=== PATIENT | female | born 1945 | race Caucasian/White ===

== ENCOUNTER 2024-01-02 11:36 | Inpatient (IN) | payer MEDICARE, SELFPAY ==
[2024-01-02] VITALS (11 sets, daily range): BP systolic 116–164; BP diastolic 44–93; PULSE 85–115; RESP 16–25; TEMP 36–37.1; O2SAT 92–100; BMI 22.8; BMI 21.8
--- NOTE | 2024-01-02 11:55 | CT_ITS ---
EXAM: CT MAXILLOFACIAL SINUSES WITHOUT INTRAVENOUS CONTRAST CLINICAL INDICATION: pain TECHNIQUE: Helically acquired images were obtained of the maxillofacial sinuses without intravenous contrast. This CT exam was performed using one or more of the following dose reduction techniques: automated exposure control, adjustment of the mA and/or kV according to patient size, and/or use of iterative reconstruction technique. RADIATION DOSE: CTDIvol = 29.38 mGy, DLP = 1197.76 mGy-cm COMPARISON: No relevant prior studies available. FINDINGS: MAXILLARY SINUSES: Minimal mucosal thickening in the left pancreas sinus. Normal right maxillary sinus. Narrow bilateral ostiomeatal units but nonobstructive. SPHENOID SINUSES: Clear. FRONTAL SINUSES: Clear. ETHMOID AIR CELLS: Clear. NASAL CAVITY/SEPTUM: Nasal septum is midline. Nasal turbinates are unremarkable. TEMPORAL BONES: Mild mucosal edema of the bilateral temporal mastoid air cells, left greater than right. Normal bilateral middle ear spaces and the visualized middle ear ossicles. Normal bilateral external auditory canals.. BONES/JOINTS: No fractures. No lytic or blastic lesions. Degenerative narrowing of the left TMJ with prominent anterior degenerative spurring of the left condylar head from chronic left TMJ dysfunction. Normal right TMJ. SOFT TISSUES: Unremarkable. SUPRAHYOID NECK: Normal parotid spaces, parapharyngeal spaces and physician general practice spaces. Normal nasopharynx, oropharynx and hypopharynx. Normal submandibular space is and sublingual spaces. Normal carotid spaces. LYMPH NODES: No lymphadenopathy in the suprahyoid neck. ORBITS: Unremarkable. DENTAL: Unremarkable as visualized. No periodontal osseous erosion. CT/Sinus/Facial Bone IMPRESSION: 1. No CT evidence of acute or chronic sinusitis. 2. Degenerative narrowing of the left TMJ with bone spur in the anterior aspect of the left condylar head due to chronic TMJ dysfunction. Normal right TMJ. 3. No CT evidence of mass or acute abnormality in the suprahyoid neck. Electronically Signed: Ruel Matthews MD at 13:37 EDT ,
--- NOTE | 2024-01-02 11:55 | CT_ITS ---
EXAM: CT HEAD WITHOUT INTRAVENOUS CONTRAST CLINICAL INDICATION: Weakness. TECHNIQUE: Multiple axial images were obtained of the head without intravenous contrast. This CT exam was performed using one or more of the following dose reduction techniques: automated exposure control, adjustment of the mA and/or kV according to patient size, and/or use of iterative reconstruction technique. RADIATION DOSE: CTDIvol = 44.99 mGy, DLP = 829.85 mGy-cm COMPARISON: No relevant prior studies available. FINDINGS: BRAIN AND EXTRA-AXIAL SPACES: Confluent white matter hypodensities in the subcortical white matter of the cerebral hemispheres are chronic white matter ischemic changes. Normal cavum septum pellucidum and cavum vergae. Mild cerebral atrophy, central and cortical, causing disproportionate dilatation of the third and lateral ventricles. Normal cerebral aqueduct and fourth ventricle. No intra- or extra-axial hemorrhage. No intracranial mass or mass effect. Posterior fossa structures are unremarkable. No hydrocephalus. Basal cisterns are patent. BONES/JOINTS: Unremarkable. No discrete lytic or blastic abnormalities. SINUSES: Unremarkable as visualized. Clear. MASTOID AIR CELLS: Unremarkable. Clear. ORBITS: Visualized globes, extraocular muscles, optic nerves and retrobulbar fat appear unremarkable. CT/Brain/Head without Contrast IMPRESSION: 1. No CT evidence of intracranial bleeding, acute ischemic infarct, intracranial mass or acute intracranial abnormality. 2. Confluent chronic white matter ischemic changes in both cerebral hemispheres. Electronically Signed: Ruel Matthews MD at 13:10 EDT ,
--- NOTE | 2024-01-02 11:55 | EKG12_ITS ---
Test Reason : WEAKNESS Blood Pressure : / mmHG Vent. Rate : 083 BPM Atrial Rate : 000 BPM P-R Int : 000 ms QRS Dur : 136 ms QT Int : 422 ms P-R-T Axes : 000 -79 017 degrees QTc Int : 495 ms NSR Left axis deviation Right bundle branch block Abnormal ECG Confirmed by SILAS SMYTH, COTY ([id number]), editor producer VANNA THOMAS ([id number]) on 01/04/2024 7:05:13 AM Referred By: Confirmed By:COTY ROSEN MD
--- NOTE | 2024-01-02 11:57 | EDS_ITS ---
HPI History of Present Illness Chief Complaint: Weakness Informant: patient and spouse/S.O. Narrative Narrative: Patient presents secondary to generalized weakness and decreased p.o. intake. She admits that she has not been to a doctor in at least 12 years. She has a bad tooth in the left lower jaw and thinks that led to her current illness. She reports some sinus pressure but really no specific dental pain. For the past couple days she has been laying in bed. She has had decreased p.o. intake. She had some chills but no fever. She has had a mild cough. She developed diarrhea yesterday. PFSH PFS Medical History no medical history no medical history Allergy/AdvReac Type Severity Reaction Status Date / Time No Known Allergies Allergy Verified 01/02/24 11:36 Social History Smoking Status: Never smoker ROS ROS ED Constitutional Constitutional ED: Reports chills; Denies fever(s) Eyes Eyes: Denies change in vision or discharge from eye(s) ENT ENT ED: Reports other Details: Left lower tooth decay ; Denies discharge from eye(s), rhinorrhea or sore throat Cardiovascular Cardiovascular: Denies chest pain or palpitations Respiratory/Chest Respiratory/Chest: Reports cough; Denies dyspnea Gastrointestinal Gastrointestinal: Reports diarrhea; Denies abdominal pain, nausea or vomiting Genitourinary Genitourinary ED: Denies difficulty urinating or dysuria Musculoskeletal Musculoskeletal: Denies back pain or extremity pain Integumentary Denies Abrasions or rash Neurologic Neurologic: Reports weakness; Denies headache(s) Psychiatric Psychiatric: Denies anxiety or depression Allergic/Immunologic Allergic/Immunologic ED: Denies lip swelling or urticaria EXAM Physical Exam Const Vital Signs: 01/02/24 11:37 01/02/24 11:40 01/02/24 12:12 Temperature 96.8 F L 96.8 F L Temperature Source Temporal Temporal Pulse Rate 93 93 Respiratory Rate 18 18 Respiratory Effort Normal Non-Labored Respiratory Pattern Normal Blood Pressure 149/58 H 149/58 H Blood Pressure Mean 88 88 Pulse Ox 100 100 Oxygen Delivery Method Room Air Room Air 01/02/24 13:03 01/02/24 13:26 01/02/24 14:00 Temperature 98.1 F 97.4 F L Temperature Source Axillary Temporal Pulse Rate 85 94 115 H Respiratory Rate 16 25 H 18 Respiratory Effort Respiratory Pattern Normal Blood Pressure 149/90 H 164/72 H Blood Pressure Mean 109 102 Pulse Ox 93 95 Oxygen Delivery Method Room Air Room Air Positive well nourished and well developed General Appearance ED: well developed HEENT Reports moist mucous membranes HEENT Narrative: Cavity noted along the left mandibular second molar. Minimal surrounding gum edema. No trismus. No facial edema or erythema. 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 EKG obtained to evaluate for cardiac arrhythmia/ischemia. IV line established. Labwork obtained to evaluate for leukocytosis, anemia, and electrolyte derangement. Urinalysis obtained to evaluate for infection/hematuria. CT scan of the head and facial bones/sinuses obtained given her complaints of pain. History & Record Review Discussion w/independent historian: Patient and Significant other Lab Data Attestation: I reviewed the patient's lab results. Labs: Laboratory Results - last 24 hr 01/02/24 12:10 WBC 15.5 H RBC 2.73 L Hgb 7.6 L Hct 24.2 L MCV 88.6 MCH 27.8 MCHC 31.4 L RDW Std Deviation 46.1 H RDW Coeff of Magdalene 14.4 Plt Count 256 MPV 9.7 Immature Gran % (Auto) 1.200 H Neut % (Auto) 85.1 H Lymph % (Auto) 6.2 L [place] % (Auto) 6.3 Eos % (Auto) 0.8 Baso % (Auto) 0.4 Absolute Neuts (auto) 13.2 H Absolute Lymphs (auto) 0.96 Nucleated RBC % 0 Sodium 135 L Potassium 5.7 H Chloride 99 Carbon Dioxide 20.0 L Anion Gap 16 H BUN 123 H* Creatinine 11.30 H* Estim Creat Clear Calc 3.75 Est GFR (MDRD) Af Amer 4 L Est GFR (MDRD) Non-Af 4 L BUN/Creatinine Ratio 10.9 Glucose 124 H Calcium 9.4 Total Bilirubin 0.70 Direct Bilirubin 0.41 H AST 20 ALT 17 Alkaline Phosphatase 187 H Total Protein 7.4 Albumin 1.9 L Globulin 5.5 H Radiography Chest X-Ray - ED: 2 View, Read by ED Physician and - (Chronic changes, hyperinflation, haziness bilateral apices.) Diagnostic Testing: Clinical Impression(s) from Imaging Studies Brain CT 01/02/24 11:55 IMPRESSION: 1. No CT evidence of intracranial bleeding, acute ischemic infarct, intracranial mass or acute intracranial abnormality. 2. Confluent chronic white matter ischemic changes in both cerebral hemispheres. Electronically Signed: Ruel Matthews MD at 13:10 EDT , Facial/Sinus 01/02/24 11:[address]: [address] evidence of acute or chronic sinusitis. 2. Degenerative narrowing of the left TMJ with bone spur in the anterior aspect of the left condylar head due to chronic TMJ dysfunction. Normal right TMJ. 3. No CT evidence of mass or acute abnormality in the suprahyoid neck. Electronically Signed: Ruel Matthews MD at 13:37 EDT , Chest X-Ray 01/02/24 12:54 IMPRESSION: 1. No acute cardiopulmonary pathology. 2. COPD. 3. Prominent right apical pleural thickening greater than left apical pleural thickening. HRCT chest will be very helpful for further evaluation. Electronically Signed: Ruel Matthews MD at 14:08 EDT , EKG Initial EKG: Attestation: I personally reviewed and interpreted this EKG as follows: Interpretation: Sinus Rhythm (Sinus 83 with prolonged PA. QTc is 495.) Treatment and Re-Evaluation :: CT scan of the head reveals no acute intracranial findings. Confluent chronic white matter changes noted. CT of the facial bones and sinuses reveals no acute sinusitis. 2 view chest x-ray per my interpretation reveals chronic changes with hyperinflation and haziness at the bilateral apices. Radiology interpretation reviewed and agrees. CBC was a white count of 15.5 with 85% neutrophils. Hemoglobin is low at 7.6 with hematocrit of 24.2. Chemistry studies reveal a sodium of 135, potassium of 5.7, bicarb of 20. Anion gap is 16. BUN is 123 and creatinine is 11.3. Glucose is 124. LFTs significant for an alk phos of 187. Given her hyperkalemia, she was given insulin and glucose along with an albuterol treatment. Following the albuterol treatment she has been tachycardic in the 120s. Nursing staff did note a episode where her heart rate went up into the 180s. They went into the room and had a cough and she came back down to the 120s. Patient is currently receiving IV fluids. Bedside bladder scan will be obtained to evaluate whether she has any urine in her bladder for urinalysis. I will speak with hospitalist regarding admission. Discharge Plan Triage Chief Complaint: Weakness ED Provider: Constance Wiggins Dx/Rx/DC Orders Clinical Impression: Anemia, Leukocytosis, Renal failure, SVT (supraventricular tachycardia), Hyperkalemia Primary Care Provider: Care Physician,No Primary Referrals: NOT,DEFINED [Non-Staff] - Disposition Disposition: Acute Care [facility]
[2024-01-02] MEDS: 0.9% Normal Saline (1000mL) 1,000 ML 1000 ML IV (12:09)
[2024-01-02 12:30] LABS: Absolute Lymphocyte Count 0.96 X10^3/uL (0.83-4.51); Absolute Neutrophil Count 13.2 X10^3/uL (2.0-7.7); Basophil# 0.06 X10^3/uL; Basophil% 0.4 % (0-1); Eosinophil# 0.12 X10^3/uL; Eosinophils% 0.8 % (0-5); Hematocrit 24.2 % (37-47); Hemoglobin 7.6 g/dL (12.0-15.0); Lymphocyte # 0.96 X10^3/ul (0.83-4.51); Lymphocyte % 6.2 % (19-41); Mean Corp Hgb Conc 31.4 g/dL (32-36); Mean Corpuscular Hgb 27.8 pg (27.0-32.0); Mean Corpuscular Volume 88.6 fL (81-99); Mean Platelet Vol. 9.7 fl (6.2-12.0); Monocyte# 0.98 X10^3/uL; Monocyte% 6.3 % (0-10); NRBC Flagged by Analyzer 0 % (0-5); Neutrophil # 13.24 X10^3/uL (2.7-7.7); Neutrophil % 85.1 % (47-70); Platelet Count 256 K/mm3 (150-450); RBC Distribution Width CV 14.4 % (11.6-14.6); RBC Distribution Width SD 46.1 fl (35.1-43.9); Red Blood Count 2.73 M/mm3 (4.2-5.4); White Blood Count 15.5 K/mm3 (4.4-11.0)
[2024-01-02 12:46] LABS: AST(SGOT) 20 U/L (15-37); Alanine Aminotransfer ALT/SGPT 17 U/L (13-56); Albumin, Serum 1.9 g/dL (3.2-5.0); Alkaline Phosphatase 187 U/L (45-117); Anion Gap 16 (5-15); BUN 123 mg/dL (7-18); BUN/Creat Ratio 10.9 RATIO (10-20); Bilirubin, Direct 0.41 mg/dL (0.00-0.30); Calcium,Total 9.4 mg/dL (8.5-10.1); Chloride 99 mmol/L (98-107); EST Glomerular Filtration Rate 4 mL/min (>60); Est Glom Filt Rate - Afr Amer 4 mL/min (>60); Estimated Creatinine Clearance 3.75 ml/min; Globulin 5.5 g/dL (2.2-4.2); Glucose 124 mg/dL (74-106); Potassium 5.7 mmol/L (3.5-5.1); Protein, Total 7.4 g/dL (6.4-8.2); Sodium Level 135 mmol/L (136-145)
--- NOTE | 2024-01-02 12:54 | RAD_ITS ---
EXAM: XR CHEST, 2 VIEWS CLINICAL INDICATION: cough TECHNIQUE: Frontal and lateral views of the chest. COMPARISON: No relevant prior studies available. FINDINGS: LUNGS AND PLEURAL SPACES: Mild pulmonary hyperinflation and flattening of the hemidiaphragms. Asymmetric bilateral apical pleural thickening, right greater than left. No pneumothorax. No effusion. HEART: Mild cardiomegaly. MEDIASTINUM: Central airways and mediastinal contour are unremarkable. BONES/JOINTS: Unremarkable. No acute fracture. SOFT TISSUES: Unremarkable. RAD/Chest PA and Lateral IMPRESSION: 1. No acute cardiopulmonary pathology. 2. COPD. 3. Prominent right apical pleural thickening greater than left apical pleural thickening. HRCT chest will be very helpful for further evaluation. Electronically Signed: Ruel Matthews MD at 14:08 EDT ,
[2024-01-02] MEDS: Albuterol 2.5 MG/3 ML VIAL.NEB. 10 MG INHALATION (13:02)
[2024-01-02] MEDS: Insulin Lispro 10 UNIT in Syringe 0 ML 6 UNIT IV (13:22)
[2024-01-02] MEDS: Dextrose 50%-Water 25 GM/50 ML DISP.SYRIN IV (13:22)
[2024-01-02] MEDS: 0.9% Normal Saline (1000mL) 1,000 ML 150 ML IV (14:21)
--- NOTE | 2024-01-02 15:11 | PCM.HP.STD ---
HPI - General General Date of Admission: 01/02/24 Date of Service: 01/02/24 Chief Complaint: Generalized weakness for 4 weeks, decreased oral intake not on blood for 3 to 4 days HPI Narrative DIAN WEBB, is a 78 F who came to ED for generalized weakness for about 4 weeks with decreased oral intake, not eating enough, out of bed for last 3 to 4 days. Patient also stated she had sinus infection about 2 to 4 weeks ago and is out of it. She is feeling chills last days but has not measured temperature. She also has mild chronic dry cough which has not increased in severity or change in characteristic. She states sometimes she gets chest pain on coughing. She admitted that she had not been to her doctor for at least 12 years last one was in 2011. She had a bad tooth left lower jaw that due to present illness. To ED doctor states that she developed diarrhea but to me she said her bowel movements are normal. Her history is very circumference and seems to changes her answer to different providers. She also found decrease in the urine output and frequency in last 1 month but denies burning micturition. She said she has not had urine output in last 3 days In ED, patient was found to be in GRACE, BUN/creatinine 123/1.3, potassium 5.7. In ED, she had started runs of SVT which lasted for seconds to minutes. Twelve-lead EKG shows sinus rhythm with wide QRS, LAD, RBBB. QTc 495 ms. QRS 136 ms. She was also found very anemic hemoglobin 7.6/hematocrit 24.2. Initially patient was refusing for admission but after talking to ED physician, her and myself she agreed for admission. Past medical history: Unclear. She also denies any medical disease. Has not seen doctor in 12 years. Social history: She smoked a pack per day till 1990 and then quit. Quit 33 years ago. Started around teenage. Denies any significant alcohol use or substance use. Family history: History very circumferential. Cannot tell directly any significant family history relating to present illness. Noncontributory to the present illness [facility] Medical History no medical history Home Medications ascorbic acid (vitamin C) 250 mg tablet 250 mg PO DAILY 01/02/24 [History Last Taken Unknown] cholecalciferol (vitamin D3) 25 mcg (1,000 unit) capsule 25 mcg PO DAILY 01/02/24 [History Last Taken Unknown] cyanocobalamin (vitamin B-12) 1,000 mcg capsule 1,000 mcg PO DAILY 01/02/24 [History Last Taken Unknown] iron,carbonyl-vitamin C-FOS 1 tab PO DAILY 01/02/24 [History Last Taken Unknown] magnesium citrate 100 mg tablet 400 mg PO DAILY 01/02/24 [History Last Taken Unknown] multivitamin (Daily Multi-Vitamin tablet) 1 tab PO DAILY 01/02/24 [History Last Taken Unknown] Allergy/AdvReac Type Severity Reaction Status Date / Time No Known Allergies Allergy Verified 01/02/24 11:36 Social History Smoking Status: Never smoker ROS ROS Narrative Constitutional: Reports fatigue and weakness for about 4 weeks. No fever. Chills HEENT: Chronic sinus but gotten better in the last 2 weeks. Denies nasal discharge, rhinorrhea sinus pressure or headache. Reports systems reviewed and no addt'l complaints, except as documented Respiratory/Chest: No acute shortness of breath or respiratory distress or wheezing. Rest as described in HPI CVS: No chest pain pressure or tightness Gastrointestinal: Denies coffee ground emesis, hematemesis or vomiting Genitourinary: Denies burning urination or new urinary tract symptoms Musculoskeletal: Denies acute joint pain or limited range of motion. No acute injury Neurologic: Denies seizure-like symptoms. skin: No ulcer. No rash Endocrinology: Reports systems reviewed and no addt'l complaints, except as documented Hematologic/Lymphatic: Reports systems reviewed and no addt'l complaints, except as documented Rest 14 ROS are negative except as mentioned in HPI Vital Signs Vital Signs Vital Signs: 01/02/24 11:37 01/02/24 11:40 01/02/24 12:12 Temperature 96.8 F L 96.8 F L Temperature Source Temporal Temporal Pulse Rate 93 93 Respiratory Rate 18 18 Respiratory Effort Normal Non-Labored Respiratory Pattern Normal Blood Pressure 149/58 H 149/58 H Blood Pressure Mean 88 88 Pulse Ox 100 100 Oxygen Delivery Method Room Air Room Air 01/02/24 13:03 01/02/24 13:26 01/02/24 14:00 Temperature 98.1 F 97.4 F L Temperature Source Axillary Temporal Pulse Rate 85 94 115 H Respiratory Rate 16 25 H 18 Respiratory Effort Respiratory Pattern Normal Blood Pressure 149/90 H 164/72 H Blood Pressure Mean 109 102 Pulse Ox 93 95 Oxygen Delivery Method Room Air Room Air Weight Weight: 136 lb 14.513 oz Body Mass Index (BMI) 22.8 Physical Exam Narrative General: Alert, Oriented x3, Cooperative. Fatigue. Shivering. BMI 22.8 kg/m? HEENT: Atraumatic, PERRLA, EOMI, Normocephalic Oral: No Gingival or Mucosal Lesions/ Ulcerations Neck: Supple, No JVD, Negative Carotid Bruits Chest wall/Lungs: Air entry diminished in bilateral lung bases. No crepitation/rhonchi Cardiovascular: Regular rate, Regular Rhythm, Normal S1, Normal S2, No M/G/R Abdomen: Bowel Sounds Present, Soft, Non Tender, Non-Distended : Decrease in urine output and frequency last 1 month. No dysuria. No renal angle tenderness. No suprapubic tenderness. Extremities: No edema, Capillary Refill Less than 3 Seconds Skin: No rashes, No breakdown Musculoskeletal: No Tenderness to Palpation of Joints or Extremities. Decreased muscle mass in extremities and craniofacial structure. Loss of subcutaneous fat. Neurological: Cranial nerves II-XII grossly intact, DTR 2+/4. No acute focal neurological deficit. Psych/Mental Status: Flat affect. Dismissive in attitude. Results Lab / Micro Data 01/02/24 12:10 01/02/24 12:10 Labs: Laboratory Results - last 24 hr 01/02/24 12:10: WBC 15.5 H, RBC 2.73 L, Hgb 7.6 L, Hct 24.2 L, MCV 88.6, MCH 27.8, MCHC 31.4 L, RDW Std Deviation 46.1 H, RDW Coeff of Magdalene 14.4, Plt Count 256, MPV 9.7, Immature Gran % (Auto) 1.200 H, Neut % (Auto) 85.1 H, Lymph % (Auto) 6.2 L, [place] % (Auto) 6.3, Eos % (Auto) 0.8, Baso % (Auto) 0.4, Absolute Neuts (auto) 13.2 H, Absolute Lymphs (auto) 0.96, Nucleated RBC % 0, Sodium 135 L, Potassium 5.7 H, Chloride 99, Carbon Dioxide 20.0 L, Anion Gap 16 H, BUN 123 H*, Creatinine 11.30 H*, Estim Creat Clear Calc 3.75, Est GFR (MDRD) Af Amer 4 L, Est GFR (MDRD) Non-Af 4 L, BUN/Creatinine Ratio 10.9, Glucose 124 H, Calcium 9.4, Total Bilirubin 0.70, Direct Bilirubin 0.41 H, AST 20, ALT 17, Alkaline Phosphatase 187 H, Total Protein 7.4, Albumin 1.9 L, Globulin 5.5 H Imaging Radiology Impression Brain CT 01/02/24 11:55 IMPRESSION: 1. No CT evidence of intracranial bleeding, acute ischemic infarct, intracranial mass or acute intracranial abnormality. 2. Confluent chronic white matter ischemic changes in both cerebral hemispheres. Electronically Signed: Ruel Matthews MD at 13:10 EDT Reading Location ID and State: [facility] / [place] , Service support , Facial/Sinus 01/02/24 11:55 IMPRESSION: 1. No CT evidence of acute or chronic sinusitis. 2. Degenerative narrowing of the left TMJ with bone spur in the anterior aspect of the left condylar head due to chronic TMJ dysfunction. Normal right TMJ. 3. No CT evidence of mass or acute abnormality in the suprahyoid neck. Electronically Signed: Ruel Matthews MD at 13:37 EDT , Chest X-Ray 01/02/24 12:54 IMPRESSION: 1. No acute cardiopulmonary pathology. 2. COPD. 3. Prominent right apical pleural thickening greater than left apical pleural thickening. HRCT chest will be very helpful for further evaluation. Electronically Signed: Ruel Matthews MD at 14:08 EDT , Assessment & Plan Assessment/Plan (1) GRACE (acute kidney injury): (2) SVT (supraventricular tachycardia): (3) Hyperkalemia: PLAN: Plan This is 71-year-old female being admitted for further evaluation of kidney failure along with generalized weakness fatigue, decreased oral intake for last 3 days 1. Kidney failure unclear about the timing, etiology, possible GRACE or worsening of CKD, clinically undetermined: Patient is being admitted in PCU. This becomes difficult as patient has not seen any healthcare provider in the last 12 years. IV fluid normal saline 100 mill per hour for 2 bags. [employer] consulted. BUNs/creatinine very high 123/11.3. Kidneys and bladder ultrasound ordered. Morel catheter insertion for accurate intake and output with history of oliguria/anuria 2. Severe anemia, normocytic normochromic, unclear about acuity, timing and etiology, clinically undetermined: H&H 7.6/24.2%. Patient is states that she has normal bowel movement without any obvious blood in the stool or hematemesis melena or hematochezia. No abdominal pain. H&H every 6 hourly and transfusion if hemoglobin drops less than 7 g%. Stool for occult blood ordered 3. Transient episode of SVT in ED: EF adjusted probably due to albuterol and ablation. Lasted for seconds to minute. Currently sinus tachycardia on monitor 112/min. 4. Generalized weakness fatigue probably due to kidney failure: PT and OT ordered. Patient is on multiple vitamin, B12 and calcium medications. Home medication reconciliation 5. Gradual decline in memory possible dementia: She stated her memory is gradually declining denies any current confusion delirium or disorientation. VTE prophylaxis: High risk but pharmacological prophylaxis contraindicated in view of severe anemia, GRACE and high BUN/uremia with risk of bleeding. Bilateral SCDs. Living will/advanced directive/end of life care: Patient does have living will or advanced directive. Her is next to kin after discussion of benefits/risks procedures involved with full code, DNR CC arrest and DNR CC, the patient opted for full code. Patient does want artificial life support including intubation, tube feed, ventilator and/chest compression, central venous catheter, vasopressor and DC shock if needed Total time spent in [id number] encounter in discussion of advanced directive 17 minutes. Laboratory Results 01/02/24 12:10: WBC 15.5 H, RBC 2.73 L, Hgb 7.6 L, Hct 24.2 L, MCV 88.6, MCH 27.8, MCHC 31.4 L, RDW Std Deviation 46.1 H, RDW Coeff of Magdalene 14.4, Plt Count 256, MPV 9.7, Immature Gran % (Auto) 1.200 H, Neut % (Auto) 85.1 H, Lymph % (Auto) 6.2 L, [place] % (Auto) 6.3, Eos % (Auto) 0.8, Baso % (Auto) 0.4, Absolute Neuts (auto) 13.2 H, Absolute Lymphs (auto) 0.96, Nucleated RBC % 0, Sodium 135 L, Potassium 5.7 H, Chloride 99, Carbon Dioxide 20.0 L, Anion Gap 16 H, BUN 123 H*, Creatinine 11.30 H*, Estim Creat Clear Calc 3.75, Est GFR (MDRD) Af Amer 4 L, Est GFR (MDRD) Non-Af 4 L, BUN/Creatinine Ratio 10.9, Glucose 124 H, Calcium 9.4, Total Bilirubin 0.70, Direct Bilirubin 0.41 H, AST 20, ALT 17, Alkaline Phosphatase 187 H, Total Protein 7.4, Albumin 1.9 L, Globulin 5.5 H Clinical Impression(s) from Imaging Studies Brain CT 01/02/24 11:55 IMPRESSION: 1. No CT evidence of intracranial bleeding, acute ischemic infarct, intracranial mass or acute intracranial abnormality. 2. Confluent chronic white matter ischemic changes in both cerebral hemispheres. Electronically Signed: Ruel Matthews MD at 13:10 EDT , Facial/Sinus 01/02/24 11:55 IMPRESSION: 1. No CT evidence of acute or chronic sinusitis. 2. Degenerative narrowing of the left TMJ with bone spur in the anterior aspect of the left condylar head due to chronic TMJ dysfunction. Normal right TMJ. 3. No CT evidence of mass or acute abnormality in the suprahyoid neck. Charges/Coding Visit Charges Inpatient E&M: 16247 Init Hosp L3 Procedures Hospitalists Procedures: 36452 Advncd Care Plan 30 Min
--- NOTE | 2024-01-02 16:03 | US_ITS ---
INDICATION: GRACE, Cr 11.3, oliguria/anuria EXAMINATION: Ultrasound US Kidney(s) complete (eg, kidneys and bladder) TECHNIQUE: Victor scale and color doppler images were obtained of the kidneys. COMPARISON: No relevant prior comparison study available FINDINGS: RIGHT KIDNEY: The right kidney measures 10.2 cm in length. There is no hydronephrosis. No shadowing calculus, focal lesion or perinephric collection is demonstrated. LEFT KIDNEY: The left kidney measures 9.8 cm in length. There is no hydronephrosis. No shadowing calculus, focal lesion or perinephric collection is demonstrated. URINARY BLADDER: The urinary bladder volume measures 94.3 mL. No acute abnormality. US/Kidney and Bladder IMPRESSION: Within normal limits renal ultrasound. Electronically Signed: Cee Owens MD at 10:36 EDT ,
[2024-01-02] MEDS: 0.9% Normal Saline (1000mL) 1,000 ML 100 ML IV (17:25)
[2024-01-02 17:35] LABS: Hematocrit 22.5 % (37-47); Hemoglobin 7.1 g/dL (12.0-15.0)
--- NOTE | 2024-01-02 17:38 | NURSING ---
This nurse looking for Morel bag on side of bed and finding none. Asked pt about Morel and pt emphatically refused Morel. No one is putting anything inside of me
[2024-01-02] MEDS: Sodium Polystyrene Sulfonate 15 GM/60 ML UDC 30 GM PO (17:58)
[2024-01-02] MEDS: proCHLORPERazine 10 MG/2 ML Vial 5 MG IV (18:09)
[2024-01-02 18:28] LABS: Phosphorus 8.4 mg/dL (2.5-4.9)
[2024-01-02 20:03] LABS: Anion Gap 15 (5-15); BUN 122 mg/dL (7-18); Calcium,Total 8.5 mg/dL (8.5-10.1); Chloride 106 mmol/L (98-107); EST Glomerular Filtration Rate 4 mL/min (>60); Est Glom Filt Rate - Afr Amer 4 mL/min (>60); Estimated Creatinine Clearance 3.82 ml/min; Glucose 129 mg/dL (74-106); Potassium 5.5 mmol/L (3.5-5.1); Sodium Level 138 mmol/L (136-145)
--- NOTE | 2024-01-02 21:00 | NURSING ---
bladder scanned for 34ml
[2024-01-02 23:14] LABS: Hematocrit 20.2 % (37-47); Hemoglobin 6.6 g/dL (12.0-15.0)
[2024-01-03] VITALS (15 sets, daily range): BP systolic 117–165; BP diastolic 47–72; PULSE 73–92; RESP 14–18; TEMP 36.3–36.7; O2SAT 88–97; BMI 22.0
--- NOTE | 2024-01-03 00:17 | PCM.HOSP.N ---
Hospitalist Note Repeat HH 6.6, will order 1 u PRBC and repeat labs with AM labs already ordered.
[2024-01-03] MEDS: Pantoprazole Sodium 40 MG in 0.9% Normal Saline (100mL MB+) 100 ML 330 MG IV ×3 (05:39→22:00)
[2024-01-03] MEDS: 0.9% Normal Saline (1000mL) 1,000 ML 100 ML IV ×2 (05:39→17:51)
[2024-01-03 06:42] LABS: Absolute Neutrophil Count 8.7 X10^3/uL (2.0-7.7); Basophil# 0.04 X10^3/uL; Basophil% 0.4 % (0-1); Eosinophil# 0.11 X10^3/uL; Hematocrit 23.6 % (37-47); Hemoglobin 7.5 g/dL (12.0-15.0); Mean Corp Hgb Conc 31.8 g/dL (32-36); Mean Corpuscular Hgb 28.1 pg (27.0-32.0); Mean Corpuscular Volume 88.4 fL (81-99); Mean Platelet Vol. 10.2 fl (6.2-12.0); Monocyte# 0.96 X10^3/uL; Monocyte% 8.7 % (0-10); NRBC Flagged by Analyzer 0 % (0-5); Neutrophil % 78.8 % (47-70); Platelet Count 202 K/mm3 (150-450); RBC Distribution Width CV 14.1 % (11.6-14.6); RBC Distribution Width SD 45.4 fl (35.1-43.9); Red Blood Count 2.67 M/mm3 (4.2-5.4)
--- NOTE | 2024-01-03 06:42 | NURSING ---
bladder scanned for 96ml
[2024-01-03 07:34] LABS: Anion Gap 13 (5-15); BUN 124 mg/dL (7-18); BUN/Creat Ratio 11.2 RATIO (10-20); Calcium,Total 8.7 mg/dL (8.5-10.1); Chloride 108 mmol/L (98-107); EST Glomerular Filtration Rate 4 mL/min (>60); Est Glom Filt Rate - Afr Amer 4 mL/min (>60); Estimated Creatinine Clearance 3.82 ml/min; Glucose 111 mg/dL (74-106); Potassium 5.3 mmol/L (3.5-5.1); Sodium Level 140 mmol/L (136-145); Thyroid Stim Hormone (TSH) 7.18 uIU/mL (0.358-3.74)
--- NOTE | 2024-01-03 07:58 | PN.HOSP_ITS ---
Reason for Visit Reason for Visit: Diagnoses Hyperkalemia (01/02/24) Supraventricular tachycardia, unspecified (01/02/24) Acute kidney failure, unspecified (01/02/24) Objective Data Objective Data Vital Signs: Vital Signs Temp Pulse Resp BP Pulse Ox O2 Del Method O2 Flow Rate 97.4 F L 78 18 137/57 H 94 Nasal Cannula 2 01/03/24 05:36 01/03/24 05:36 01/03/24 05:36 01/03/24 05:36 01/03/24 07:39 01/03/24 07:39 01/03/24 07:39 Oxygen Flow Rate (L/min) 2 Oxygen Delivery Method Nasal Cannula Weight: 60 kg Body Mass Index (BMI) 22.0 Intake & Output: Intake and Output for Last 24 Hours 01/01/24 01/02/24 01/03/24 23:59 23:59 23:59 Intake Total 1467.5 / 1467.5 1111 / 1111 Output Total 0 / 0 0 / 0 Balance 1467.5 / 1467.5 1111 / 1111 Lab / Micro Data 01/03/24 05:55 01/03/24 06:15 Labs: Laboratory Results - last 24 hr 01/02/24 12:10: WBC 15.5 H, RBC 2.73 L, Hgb 7.6 L, Hct 24.2 L, MCV 88.6, MCH 27.8, MCHC 31.4 L, RDW Std Deviation 46.1 H, RDW Coeff of Magdalene 14.4, Plt Count 2 56, MPV 9.7, Immature Gran % (Auto) 1.200 H, Neut % (Auto) 85.1 H, Lymph % (Auto) 6.2 L, [place] % (Auto) 6.3, Eos % (Auto) 0.8, Baso % (Auto) 0.4, Absolute Neuts (auto) 13.2 H, Absolute Lymphs (auto) 0.96, Nucleated RBC % 0, Sodium 135 L, Potassium 5.7 H, Chloride 99, Carbon Dioxide 20.0 L, Anion Gap 16 H, BUN 123 H*, Creatinine 11.30 H*, Estim Creat Clear Calc 3.75, Est GFR (MDRD) Af Amer 4 L , Est GFR (MDRD) Non-Af 4 L, BUN/Creatinine Ratio 10.9, Glucose 124 H, Calcium 9.4, Phosphorus 8.4 H, Magnesium 3.0 H, Total Bilirubin 0.70, Direct Bilirubin 0.41 H, AST 20, ALT 17, Alkaline Phosphatase 187 H, Total Protein 7.4, Albumin 1.9 L, Globulin 5.5 H 01/02/24 17:27: Hgb 7.1 L, Hct 22.5 L 01/02/24 19:10: Sodium 138, Potassium 5.5 H, Chloride 106, Carbon Dioxide 17.0 L , Anion Gap 15, BUN 122 H*, Creatinine 11.10 H*, Estim Creat Clear Calc 3.82, Est GFR (MDRD) Af Amer 4 L, Est GFR (MDRD) Non-Af 4 L, BUN/Creatinine Ratio 11.0, Glucose 129 H, Calcium 8.5 01/02/24 23:06: Hgb 6.6 L, Hct 20.2 L 01/03/24 00:30: Blood Type O POSITIVE, Antibody Screen NEGATIVE, Crossmatch See Detail 01/03/24 05:55: WBC 11.0, RBC 2.67 L, Hgb 7.5 L, Hct 23.6 L, MCV 88.4, MCH 28.1, MCHC 31.8 L, RDW Std Deviation 45.4 H, RDW Coeff of Magdalene 14.1, Plt Count 202, MPV 10.2, Immature Gran % (Auto) 1.100 H, Neut % (Auto) 78.8 H, Lymph % (Auto) 10.0 L, [place] % (Auto) 8.7, Eos % (Auto) 1.0, Baso % (Auto) 0.4, Absolute Neuts (auto) 8.7 H, Absolute Lymphs (auto) 1.10, Nucleated RBC % 0 01/03/24 06:15: Sodium 140, Potassium 5.3 H, Chloride 108 H, Carbon Dioxide 19.0 L, Anion Gap 13, BUN 124 H*, Creatinine 11.10 H*, Estim Creat Clear Calc 3.82, Est GFR (MDRD) Af Amer 4 L, Est GFR (MDRD) Non-Af 4 L, BUN/Creatinine Ratio 11.2, Glucose 111 H, Calcium 8.7, TSH 7.18 H Micro: Microbiology 01/03/24 03:00 Stool Stool Occult Blood (MASON) - Final Occult Blood Positive Radiography Diagnostic Testing: Radiology Impression Brain CT 01/02/24 11:55 IMPRESSION: 1. No CT evidence of intracranial bleeding, acute ischemic infarct, intracranial mass or acute intracranial abnormality. 2. Confluent chronic white matter ischemic changes in both cerebral hemispheres. Electronically Signed: Ruel Matthews MD at 13:10 EDT , Facial/Sinus 01/02/24 11:[address]: [address] evidence of acute or chronic sinusitis. 2. Degenerative narrowing of the left TMJ with bone spur in the anterior aspect of the left condylar head due to chronic TMJ dysfunction. Normal right TMJ. 3. No CT evidence of mass or acute abnormality in the suprahyoid neck. Electronically Signed: Ruel Matthews MD at 13:37 EDT , Chest X-Ray 01/02/24 12:54 IMPRESSION: 1. No acute cardiopulmonary pathology. 2. COPD. 3. Prominent right apical pleural thickening greater than left apical pleural thickening. HRCT chest will be very helpful for further evaluation. Electronically Signed: Ruel Matthews MD at 14:08 EDT , Physical Exam Narrative General: Alert, Oriented x3, Cooperative. Fatigue. Shivering. BMI 22.8 kg/m? HEENT: Atraumatic, PERRLA, EOMI, Normocephalic Oral: No Gingival or Mucosal Lesions/ Ulcerations Neck: Supple, No JVD, Negative Carotid Bruits Chest wall/Lungs: Air entry diminished in bilateral lung bases. No crepitation/rhonchi Cardiovascular: Regular rate, Regular Rhythm, Normal S1, Normal S2, No M/G/R Abdomen: Bowel Sounds Present, Soft, Non Tender, Non-Distended : Decrease in urine output and frequency last 1 month. No dysuria. No renal angle tenderness. No suprapubic tenderness. Extremities: No edema, Capillary Refill Less than 3 Seconds Skin: No rashes, No breakdown Musculoskeletal: No Tenderness to Palpation of Joints or Extremities. Decreased muscle mass in extremities and craniofacial structure. Loss of subcutaneous fat. Neurological: Cranial nerves II-XII grossly intact, DTR 2+/4. No acute focal neurological deficit. Psych/Mental Status: Flat affect. Dismissive in attitude. Assessment & Plan Assessment/Plan (1) GRACE (acute kidney injury): (2) SVT (supraventricular tachycardia): (3) Hyperkalemia: PLAN: Plan Patient is a 78-year-old lady admitted with progressive generalized weakness and decreased oral intake of 3 days duration. Patient was found to have renal failure as well as severe anemia. Admitted to a monitored bed for further management 1. Renal failure ? With unknown chronicity. Patient has apparently not been evaluated by a physician for more than 12 years. Patient started on IV fluid with subsequent monitoring of electrolytes ordered as part of her management renal ultrasound was ordered with consultation placed to nephrology 2. Anemia ? Suspected to be anemia of chronic disorder. Iron studies as well as B12 levels ordered on admission patient hemoglobin did drop to 6.6 necessitating pa tient being transfused with 1 unit PRBC 3. Paroxysmal SVT ? Patient admitted to a monitored bed for continuous telemetry 4. Physical deconditioning - Requested for PT OT eval and high school social studies teacher to assist with discharge planning 5. DVT prophylaxis ? Avoided chemoprophylaxis given his severe anemia Time spent in the patient's overall evaluation,decision-making process, review of diagnostic data, adjustment of management, discussion with other providers, nursing nursing and ancillary staff involved in patient's care documentation 35 Minutes Charges/Coding Visit Charges Inpatient E&M: 47076 Subs Hosp L2
--- NOTE | 2024-01-03 10:35 | CON.PCM.RE_ITS ---
Assessment & Plan Assessment/Plan (1) GRACE (acute kidney injury): PLAN: She has not been to a doctor for about 12 years. No prior labs. Severe anemia. With IV fluids, creatinine has not improved much. Most likely she has some degree of CKD with possibly some acute component. History of repeated sinus infections according to the . Renal ultrasound urine analysis and serologies ordered If no improvement by tomorrow, will likely need dialysis Anemia. Presumably CKD related. No obvious blood loss according to the . S/p PRBC Hyperkalemia. Likely due to CKD/GRACE. Better today. HPI Consult Data Date of Consult: 01/03/24 HPI Narrative Reason for Consultation: Acute renal failure HPI Narrative: DIAN WEBB, is a 78 F who presents to the hospital with generalized weakness, poor appetite. Nephrology on consultation in view of acute renal failure. Most of the history is from the . She lives at home with her . Apparently was fairly healthy up until a month ago. At that time they had what seems like a sinus infection. Has been recovered well but she has worsening symptoms. Poor appetite, oral intake. He thinks urine output has dropped off significantly to the point that she has not gotten out of the bed for the last 3 days. No breathing complaints. Occasional cough. History of repeated sinus infections. No prescription medications. Not seen a doctor in about 12 years or so. [facility] Medical History no medical history Home Medications ascorbic acid (vitamin C) 250 mg tablet 250 mg PO DAILY 01/02/24 [History Last Taken Unknown] cholecalciferol (vitamin D3) 25 mcg (1,000 unit) capsule 25 mcg PO DAILY 01/02/24 [History Last Taken Unknown] cyanocobalamin (vitamin B-12) 1,000 mcg capsule 1,000 mcg PO DAILY 01/02/24 [History Last Taken Unknown] iron,carbonyl-vitamin C-FOS 1 tab PO DAILY 01/02/24 [History Last Taken Unknown] magnesium citrate 100 mg tablet 400 mg PO DAILY 01/02/24 [History Last Taken Unknown] multivitamin (Daily Multi-Vitamin tablet) 1 tab PO DAILY 01/02/24 [History Last Taken Unknown] Allergy/AdvReac Type Severity Reaction Status Date / Time No Known Allergies Allergy Verified 01/02/24 11:36 Social History Smoking Status: Former smoker ROS ROS Narrative Negative except above Physical Exam Narrative no obvious distress no pallor no icterus no JVD s1s2 no murmurs lungs clear abdomen soft no organomegaly no edema no cyanosis Lab / Micro Data 01/03/24 05:55 01/03/24 06:15 Labs: Laboratory Results - last 24 hr 01/02/24 12:10: WBC 15.5 H, RBC 2.73 L, Hgb 7.6 L, Hct 24.2 L, MCV 88.6, MCH 27.8, MCHC 31.4 L, RDW Std Deviation 46.1 H, RDW Coeff of Magdalene 14.4, Plt Count 256, MPV 9.7, Immature Gran % (Auto) 1.200 H, Neut % (Auto) 85.1 H, Lymph % (Auto) 6.2 L, [place] % (Auto) 6.3, Eos % (Auto) 0.8, Baso % (Auto) 0.4, Absolute Neuts (auto) 13.2 H, Absolute Lymphs (auto) 0.96, Nucleated RBC % 0, Sodium 135 L, Potassium 5.7 H, Chloride 99, Carbon Dioxide 20.0 L, Anion Gap 16 H, BUN 123 H*, Creatinine 11.30 H*, Estim Creat Clear Calc 3.75, Est GFR (MDRD) Af Amer 4 L , Est GFR (MDRD) Non-Af 4 L, BUN/Creatinine Ratio 10.9, Glucose 124 H, Calcium 9.4, Phosphorus 8.4 H, Magnesium 3.0 H, Total Bilirubin 0.70, Direct Bilirubin 0.41 H, AST 20, ALT 17, Alkaline Phosphatase 187 H, Total Protein 7.4, Albumin 1.9 L, Globulin 5.5 H 01/02/24 17:27: Hgb 7.1 L, Hct 22.5 L 01/02/24 19:10: Sodium 138, Potassium 5.5 H, Chloride 106, Carbon Dioxide 17.0 L , Anion Gap 15, BUN 122 H*, Creatinine 11.10 H*, Estim Creat Clear Calc 3.82, Est GFR (MDRD) Af Amer 4 L, Est GFR (MDRD) Non-Af 4 L, BUN/Creatinine Ratio 11.0, Glucose 129 H, Calcium 8.5 01/02/24 23:06: Hgb 6.6 L, Hct 20.2 L 01/03/24 00:30: Blood Type O POSITIVE, Antibody Screen NEGATIVE, Crossmatch See Detail 01/03/24 05:55: WBC 11.0, RBC 2.67 L, Hgb 7.5 L, Hct 23.6 L, MCV 88.4, MCH 28.1, MCHC 31.8 L, RDW Std Deviation 45.4 H, RDW Coeff of Magdalene 14.1, Plt Count 202, MPV 10.2, Immature Gran % (Auto) 1.100 H, Neut % (Auto) 78.8 H, Lymph % (Auto) 10.0 L, [place] % (Auto) 8.7, Eos % (Auto) 1.0, Baso % (Auto) 0.4, Absolute Neuts (auto) 8.7 H, Absolute Lymphs (auto) 1.10, Nucleated RBC % 0 01/03/24 06:15: Sodium 140, Potassium 5.3 H, Chloride 108 H, Carbon Dioxide 19.0 L, Anion Gap 13, BUN 124 H*, Creatinine 11.10 H*, Estim Creat Clear Calc 3.82, Est GFR (MDRD) Af Amer 4 L, Est GFR (MDRD) Non-Af 4 L, BUN/Creatinine Ratio 11.2, Glucose 111 H, Calcium 8.7, TSH 7.18 H Micro: Microbiology 01/03/24 03:00 Stool Stool Occult Blood (MASON) - Final Occult Blood Positive Imaging Radiology Impression Brain CT 01/02/24 11:55 IMPRESSION: 1. No CT evidence of intracranial bleeding, acute ischemic infarct, intracranial mass or acute intracranial abnormality. 2. Confluent chronic white matter ischemic changes in both cerebral hemispheres. Electronically Signed: Ruel Matthews MD at 13:10 EDT , Facial/Sinus 01/02/24 11:[address]: [address] evidence of acute or chronic sinusitis. 2. Degenerative narrowing of the left TMJ with bone spur in the anterior aspect of the left condylar head due to chronic TMJ dysfunction. Normal right TMJ. 3. No CT evidence of mass or acute abnormality in the suprahyoid neck. Electronically Signed: Ruel Matthews MD at 13:37 EDT , Chest X-Ray 01/02/24 12:54 IMPRESSION: 1. No acute cardiopulmonary pathology. 2. COPD. 3. Prominent right apical pleural thickening greater than left apical pleural thickening. HRCT chest will be very helpful for further evaluation. Electronically Signed: Ruel Matthews MD at 14:08 EDT ,
--- NOTE | 2024-01-03 12:12 | CON.PCM.GI_ITS ---
HPI Consult Data Date of Consult: 01/03/24 HPI Narrative Reason for Consultation: Anemia HPI Narrative: DIAN WEBB, is a 78 F who came to ED for generalized weakness for about 4 weeks with decreased oral intake, not eating enough, out of bed for last 3 to 4 days. Patient also stated she had sinus infection about 2 to 4 weeks ago and is out of it. She is feeling chills last days but has not measured temperature. She also has mild chronic dry cough which has not increased in severity or change in characteristic. She states sometimes she gets chest pain on coughing. She admitted that she had not been to her doctor for at least 12 years last one was in 2011. She had a bad tooth left lower jaw that due to present illness. To ED doctor states that she developed diarrhea but to me she said her bowel movements are normal. Her history is very circumference and seems to changes her answer to different providers. She also found decrease in the urine output and frequency in last 1 month but denies burning micturition. She said she has not had urine output in last 3 days In ED, patient was found to be in GRACE, BUN/creatinine 123/1.3, potassium 5.7. In ED, she had started runs of SVT which lasted for seconds to minutes. Twelve- lead EKG shows sinus rhythm with wide QRS, LAD, RBBB. QTc 495 ms. QRS 136 ms. She was also found very anemic hemoglobin 7.6/hematocrit 24.2. Initially patient was refusing for admission but after talking to ED physician, her and myself she agreed for admission [facility] Medical History no medical history Home Medications ascorbic acid (vitamin C) 250 mg tablet 250 mg PO DAILY 01/02/24 [History Last Taken Unknown] cholecalciferol (vitamin D3) 25 mcg (1,000 unit) capsule 25 mcg PO DAILY 01/02/24 [History Last Taken Unknown] cyanocobalamin (vitamin B-12) 1,000 mcg capsule 1,000 mcg PO DAILY 01/02/24 [History Last Taken Unknown] iron,carbonyl-vitamin C-FOS 1 tab PO DAILY 01/02/24 [History Last Taken Unknown] magnesium citrate 100 mg tablet 400 mg PO DAILY 01/02/24 [History Last Taken Unknown] multivitamin (Daily Multi-Vitamin tablet) 1 tab PO DAILY 01/02/24 [History Last Taken Unknown] Allergy/AdvReac Type Severity Reaction Status Date / Time No Known Allergies Allergy Verified 01/02/24 11:36 Social History Smoking Status: Former smoker ROS ROS Narrative Constitutional: Reports fatigue and weakness for about 4 weeks. No fever. Chills HEENT: Chronic sinus but gotten better in the last 2 weeks. Denies nasal discharge, rhinorrhea sinus pressure or headache. Reports systems reviewed and no addt'l complaints, except as documented Respiratory/Chest: No acute shortness of breath or respiratory distress or wheezing. Rest as described in HPI CVS: No chest pain pressure or tightness Gastrointestinal: Denies coffee ground emesis, hematemesis or vomiting Genitourinary: Denies burning urination or new urinary tract symptoms Musculoskeletal: Denies acute joint pain or limited range of motion. No acute injury Neurologic: Denies seizure-like symptoms. skin: No ulcer. No rash Endocrinology: Reports systems reviewed and no addt'l complaints, except as documented Hematologic/Lymphatic: Reports systems reviewed and no addt'l complaints, except as documented Rest 14 ROS are negative except as mentioned in HPI Physical Exam Narrative no obvious distress no pallor no icterus no JVD s1s2 no murmurs lungs clear abdomen soft no organomegaly no edema no cyanosis Medical Records Data Medical Nutrition Assessment Dietitian: Malnutrition Criteria Met Start: 01/03/24 11:50 Freq: Status: Active Protocol: Document 01/03/24 11:50 AG (Rec: 01/03/24 11:50 [id number]) Nutrition Malnutrition Evidence of Malnutrition Exists Yes Malnutrition (severe): Chronic Evidenced By Suboptimal Energy Intake ( Severe),Weight Loss (Severe) Clinical Problem Chronic Disease or Condition Related Malnutrition Etiology severe malnutrition related to inadequate energy intake Signs/Symptoms as evidenced by unintentional 12% wt loss < 6 months, 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 needs > 1 month Status Active Problem Recommendation Dietitian Recommendations/Changes If not started on dialysis and renal function remains impaired, recommend renal- protein restricted diet; if pt to start dialysis, recommend renal-general diet; will monitor PO intake as established and add ONS as indicated Lab / Micro Data 01/04/24 04:18 01/04/24 04:18 Labs: Laboratory Results - last 24 hr 01/04/24 04:18: WBC 13.3 H, RBC 3.01 L, Hgb 8.5 L, Hct 26.3 L, MCV 87.4, MCH 28.2, MCHC 32.3, RDW Std Deviation 47.2 H, RDW Coeff of Magdalene 14.8 H, Plt Count 229, MPV 10.1, Immature Gran % (Auto) 1.700 H, Neut % (Auto) 84.3 H, Lymph % (Auto) 6.1 L, [place] % (Auto) 6.0, Eos % (Auto) 1.4, Baso % (Auto) 0.5, Absolute Neuts (auto) 11.2 H, Absolute Lymphs (auto) 0.81 L, Nucleated RBC % 0, PT 16.3 H , INR 1.3, APTT 34.2, Sodium 140, Potassium 5.4 H, Chloride 110 H, Carbon Dioxide 15.0 L, Anion Gap 15, BUN 123 H*, Creatinine 11.10 H*, Estim Creat Clear Calc 3.82, Est GFR (MDRD) Af Amer 4 L, Est GFR (MDRD) Non-Af 4 L, BUN/Creatinine Ratio 11.1, Glucose 117 H, Calcium 8.7, Free T4 0.81 Assessment & Plan Assessment/Plan (1) GRACE (acute kidney injury): (2) SVT (supraventricular tachycardia): (3) Hyperkalemia: PLAN: Plan This is 71-year-old female being admitted for further evaluation of kidney failure along with generalized weakness fatigue, decreased oral intake for last 3 days Severe anemia, normocytic normochromic, unclear about acuity, timing and etiology, clinically undetermined: H&H 7.6/24.2%. Patient is states that she has normal bowel movement without any obvious blood in the stool or hematemesis melena or hematochezia. No abdominal pain. H&H every 6 hourly and transfusion if hemoglobin drops less than 7 g%. Stool for occult blood ordered. She will undergo an upper endoscopy to evaluate upper GI tract. She was explained alternatives, risk, benefits include not withstanding bleeding, infection, sepsis, perforation, need for emergent and . She will have an ASA of 3.
[2024-01-03] MEDS: 0.9% Saline Lock 10 ML Syringe IV (22:26)
[2024-01-03] MEDS: hydrALAZINE 20 MG/ML Vial 10 MG IV (22:26)
[2024-01-04] VITALS (15 sets, daily range): BP systolic 108–164; BP diastolic 37–67; PULSE 72–106; RESP 16–18; TEMP 36.3–37.3; O2SAT 91–98; BMI 23.0
[2024-01-04] MEDS: 0.9% Normal Saline (1000mL) 1,000 ML 100 ML IV (02:52)
[2024-01-04 04:38] LABS: Absolute Lymphocyte Count 0.81 X10^3/uL (0.83-4.51); Absolute Neutrophil Count 11.2 X10^3/uL (2.0-7.7); Basophil# 0.07 X10^3/uL; Basophil% 0.5 % (0-1); Eosinophil# 0.18 X10^3/uL; Eosinophils% 1.4 % (0-5); Hematocrit 26.3 % (37-47); Hemoglobin 8.5 g/dL (12.0-15.0); Lymphocyte # 0.81 X10^3/ul (0.83-4.51); Lymphocyte % 6.1 % (19-41); Mean Corp Hgb Conc 32.3 g/dL (32-36); Mean Corpuscular Hgb 28.2 pg (27.0-32.0); Mean Corpuscular Volume 87.4 fL (81-99); Mean Platelet Vol. 10.1 fl (6.2-12.0); NRBC Flagged by Analyzer 0 % (0-5); Neutrophil # 11.19 X10^3/uL (2.7-7.7); Neutrophil % 84.3 % (47-70); Platelet Count 229 K/mm3 (150-450); RBC Distribution Width CV 14.8 % (11.6-14.6); RBC Distribution Width SD 47.2 fl (35.1-43.9); Red Blood Count 3.01 M/mm3 (4.2-5.4); White Blood Count 13.3 K/mm3 (4.4-11.0)
[2024-01-04 04:46] LABS: International Normalized Ratio 1.3; Prothrombin Time (Protime)PT. 16.3 SECONDS (11.7-14.9)
[2024-01-04 04:47] LABS: Partial Thromboplast Time 34.2 Seconds (24.1-36.2)
[2024-01-04 05:11] LABS: Anion Gap 15 (5-15); BUN 123 mg/dL (7-18); BUN/Creat Ratio 11.1 RATIO (10-20); Calcium,Total 8.7 mg/dL (8.5-10.1); Chloride 110 mmol/L (98-107); EST Glomerular Filtration Rate 4 mL/min (>60); Est Glom Filt Rate - Afr Amer 4 mL/min (>60); Estimated Creatinine Clearance 3.82 ml/min; Glucose 117 mg/dL (74-106); Potassium 5.4 mmol/L (3.5-5.1); Sodium Level 140 mmol/L (136-145)
--- NOTE | 2024-01-04 05:55 | EKG12_ITS ---
Test Reason : PRE OP Blood Pressure : / mmHG Vent. Rate : 090 BPM Atrial Rate : 090 BPM P-R Int : 190 ms QRS Dur : 130 ms QT Int : 398 ms P-R-T Axes : 051 -81 013 degrees QTc Int : 486 ms Normal sinus rhythm Left axis deviation Non-specific intra-ventricular conduction block Abnormal ECG When compared with ECG of 02-JAN-2024 12:21, MANUAL COMPARISON REQUIRED, DATA IS UNCONFIRMED Confirmed by SILAS SMYTH, COTY ([id number]), editor trade journal VANNA THOMAS ([id number]) on 01/04/2024 9:34:18 AM Referred By: Confirmed By:COTY ROSEN MD
[2024-01-04] MEDS: hydrALAZINE 20 MG/ML Vial 10 MG IV (06:45)
--- NOTE | 2024-01-04 09:50 | CASEMGMT ---
MARIA E JOSE Face to Face with patient for initial transition planning/care coordination assessment. MARIA E JOSE introduced self and role at [facility]. Patient lying in bed, alert and oriented. Patient willing to participate in assessment and is able to answer all questions appropriately. Care providers, pharmacy, and demographics verified. PCP: None, PCP list provided to patient Specialists: none Preferred Pharmacy: [facility] Insurance: [employer] [facility] Prescription Benefit: yes Living Will/HPOA: yes, Bharath Agustin LNOK: Living Arrangements: Patient lives with in a 2 story home with bed and bath on first floor. Patient states she is independent at home. Transportation: DME/HHC: Patient states she has shower chair and grab bars at home. No previous HHC or SNF Patient wishes to discharge home. Will monitor for need for therapy at discharge. Patient has no PCP so will not be able to have HHC setup. MARIA E JOSE discussed possible outpatient therapy at discharge, ree lepe. Patient states she has no further needs or concerns at this time. CM to follow for discharge planning needs that may arise. Disposition Plan: Patient to discharge home with family support and follow-up plans in place. Farrah INIGUEZ, RN, CM
[2024-01-04] MEDS: Metoprolol Tartrate 5 MG/5 ML Vial IV ×2 (10:09→16:11)
[2024-01-04] MEDS: 0.9% Saline Lock 10 ML Syringe IV (10:10)
[2024-01-04] MEDS: Pantoprazole Sodium 40 MG in 0.9% Normal Saline (100mL MB+) 100 ML 330 MG IV (10:12)
[2024-01-04] MEDS: 0.9% Normal Saline (1000mL) 1,000 ML 15 ML IV (11:20)
[2024-01-04 11:25] LABS: T4 Free Direct 0.81 ng/dL (0.76-1.46)
--- NOTE | 2024-01-04 12:00 | EGD_PTH ---
PATIENT: DIAN WEBB LOC: [facility] U#:[id number] AGE/SX: 78/F ROOM: [facility] RE01/02/[address]: Dr. Jena Rebolledo DO : 1945 BED: 1 DIS: 01/08/2024 SPEC #: [id number] RECD: 01/04/24 13:06 STATUS: DALE RE #: [id number] KAREN: 01/04/24 12:[address]: Manolo Ojeda DEPT: SURGICAL PATHOLOGY RECD BY: Tessa Fernandez ENTERED: 01/04/24 14:07 SP TYPE: EGD BIOPSY OTHR DR: MD Dr. Adama Mcginnis MD Dr. Kathryn Lee, DO Dr. Prakash Chand, MD No Primary Care Phys Tissues: Gastric mucous membrane Procedures: Surgery Specimen Level IV Comments: @ Ordering doctor for SUIV edited from to @ dharmesh REESE at 01/04/24 1453 @ Submitting doctor edited from to @ by MARY ANN at 01/04/24 1453 HEADER OPERATION: EGD biopsy PRE-OP DIAGNOSIS: Anemia TISSUE SUBMITTED: Gastric antrum biopsy MICROSCOPIC DIAGNOSIS Gastric antrum, biopsy: Mild gastritis. See microscopic description and comment. SHIVANI/ 01/05/24 COMMENT The results of immunohistochemistry for Helicobacter pylori will be reported separately ([id number]). MICROSCOPIC DESCRIPTION Slides are reviewed. The specimen shows fragments of gastric mucosa with chronic inflammatory cell infiltrates in the lamina propria consisting of lymphocytes and plasma cells, consistent with mild chronic gastritis. GROSS DESCRIPTION Received in fixative is one container labeled with the patient's name and designated Gastric antrum biopsy. The specimen consists of two irregular fragments of light crooks soft tissue that in aggregate measure 1.0 x 0.5 x 0.2 cm. The specimen is totally submitted in one cassette. SHIVANI/ 01/04/24 TC:3 CPT: 85650
--- NOTE | 2024-01-04 12:00 | IMM_PTH ---
PATIENT: DIAN WEBB LOC: [facility] U#:[id number] AGE/SX: 78/F ROOM: [facility] RE01/02/[address]: Dr. Jena Rebolledo DO : 1945 BED: 1 DIS: 01/08/2024 SPEC #: [id number] RECD: 01/05/24 08:31 STATUS: SOUT REQ #: [id number] KAREN: 01/04/24 12:[address]: Manolo Ojeda DEPT: IMMUNOHISTOCHEMISTRY RECD BY: Richy Larios ENTERED: 01/05/24 08:31 SP TYPE: IMMUNO OTHR DR: MD Dr. Adama Mcginnis MD Dr. Kathryn Lee, DO Dr. Michael Bortz, MD Dr. Prakash Chand, MD No Primary Care Phys Tissues: Stomach, NOS Procedures: H Pylori (initial) PHYSICIAN & INSTITUTION [place] [place] [id number] SPECIMEN INFORMATION: Tissue Source: Gastric antrum biopsy Clinical Info: Az Specimen Number: [id number] CPT code: 68492 METHODOLOGY: Deparaffinized sections of prefer/formalin-fixed tissue or PAP/DQ stained slides are incubated with monoclonal/polyclonal antibodies/oligonucleotide probes. Localization is made via biotin free immunoperoxidase method. Appropriate controls are performed and reacted as expected. Results on target cell population are indicated in the following table: RESULTS: ANTIBODY / CLONE RESULT H Pylori (polyclonal) negative These tests were developed and their performance characteristics determined by [facility]. They may not have been cleared or approved by the U.S. Food and Drug Administration. The FDA has determined that such clearance or approval is not necessary. The above immunohistochemical/dualISH markers are ordered and reviewed by the Pathologist. INTERPRETATION: Gastric antrum, biopsy: Negative for Helicobacter pylori organisms. SHIVANI/ 01/05/24
--- NOTE | 2024-01-04 12:28 | OP.CCLET_ITS ---
01/04/2024 No Primary Care Physician Re : [facility] This procedure was performed on Thursday, January 04, 2024. My impressions and recommendations are as follows: Impressions : - Non-severe non-erosive esophagitis with no bleeding. - Moderate Schatzki ring. Dilated. - Small hiatal hernia. - Bile gastritis. Biopsied. - No gross lesions in the duodenal bulb. Recommendations : - [facility]. - Full liquid diet. - Continue present medications. - Await pathology results. - There was no etiology of patient's acute blood loss anemia she will need a colonoscopy My findings are described in the full procedure note, which is enclosed. If I can be of further assistance, please feel free to contact me at . Sincerely, Manolo jOeda, 01/04/2024 12:27:48 PM This report has been signed electronically.
--- NOTE | 2024-01-04 12:28 | OP.EGD_ITS ---
Patient Name: Julia Agustin Procedure Date: 01/04/2024 12:07 PM Date of : 1945 Age: 78 Procedure: Upper GI endoscopy Indications: Epigastric abdominal pain, Iron deficiency anemia Providers: Manolo Ojeda DO Medicines: Monitored Anesthesia Care Patient Profile: This is a 78 year old female. Refer to note in patient chart for documentation of history and physical. Patient has symptoms of acute epigastric abdominal pain and acute nausea. Complications: No immediate complications. Procedure: Pre-Anesthesia Assessment: - Prior to the procedure, a History and Physical was performed, and patient medications and allergies were reviewed. The risks and benefits of the procedure and the sedation options and risks were discussed with the patient. All questions were answered and informed consent was obtained. Patient identification and proposed procedure were verified by the physician in the pre-procedure area. Mental Status Examination: alert and oriented. Airway Examination: normal oropharyngeal airway and neck mobility. Respiratory Examination: clear to auscultation. CV Examination: normal. Prophylactic Antibiotics: The patient does not require prophylactic antibiotics. Prior Anticoagulants: The patient has taken no anticoagulant or antiplatelet agents. ASA Grade Assessment: III - A patient with severe systemic disease. After reviewing the risks and benefits, the patient was deemed in satisfactory condition to undergo the procedure. The anesthesia plan was to use monitored anesthesia care (MAC). Immediately prior to administration of medications, the patient was re-assessed for adequacy to receive sedatives. The heart rate, respiratory rate, oxygen saturations, blood pressure, adequacy of pulmonary ventilation, and response to care were monitored throughout the procedure. The physical status of the patient was re-assessed after the procedure. After obtaining informed consent, the endoscope was passed under direct vision. Throughout the procedure, the patient's blood pressure, pulse, and oxygen saturations were monitored continuously. The Endoscope was introduced through the mouth, and advanced to the second part of duodenum. The upper GI endoscopy was accomplished without difficulty. The patient tolerated the procedure well. Scope In: 12:19:14 PM Scope Out: 12:22:31 PM Total Procedure Duration Time 0 hours 3 minutes 17 seconds Findings: Non-severe esophagitis with no bleeding was found 35 to 37 cm from the incisors. A moderate Schatzki ring was found at the gastroesophageal junction. A guidewire was placed and the scope was withdrawn. Dilation was performed with a Savary dilator with no resistance at 45 Fr. The dilation site was examined and showed moderate mucosal disruption. Estimated blood loss was minimal. A small hiatal hernia was present. Segmental moderate inflammation characterized by congestion (edema), erosions, erythema, friability and granularity was found in the gastric antrum. Biopsies were taken with a cold forceps for histology. Verification of patient identification for the specimen was done. Biopsies were taken with a cold forceps for Helicobacter pylori testing. Verification of patient identification for the specimen was done. Estimated blood loss was minimal. No gross lesions were noted in the duodenal bulb. Impression: - Non-severe non-erosive esophagitis with no bleeding. - Moderate Schatzki ring. Dilated. - Small hiatal hernia. - Bile gastritis. Biopsied. - No gross lesions in the duodenal bulb. Recommendation: - Return patient to [facility] for ongoing care. - Full liquid diet. - Continue present medications. - Await pathology results. - There was no etiology of patient's acute blood loss anemia she will need a colonoscopy Procedure Code(s): --- Professional --- 53451, Esophagogastroduodenoscopy, flexible, transoral; with insertion of guide wire followed by passage of dilator(s) through esophagus over guide wire 72659, 59,51, Esophagogastroduodenoscopy, flexible, transoral; with biopsy, single or multiple CPT copyright 2021 [employer]. All rights reserved. The codes documented in this report are preliminary and upon polymerization supervisor review may be revised to meet current compliance requirements. Manolo Ojeda DO 01/04/2024 12:27:48 PM This report has been signed electronically. Number of Addenda: 0 Note Initiated On: 01/04/2024 12:07 PM
[2024-01-04] MEDS: Carvedilol 12.5 MG Tablet PO ×2 (15:19→21:12)
[2024-01-04] MEDS: Ascorbic Acid 500 MG Tablet 250 MG PO (15:19)
--- NOTE | 2024-01-04 15:58 | CHAPLAIN ---
Type of Pastoral Visit ___ Initial Visit ___ Follow-up Visit ___ On-call Visit ___ General Patient Visit ___ Spiritual Assessment ___ Family Conference ___ Bereavement ___ Rapid Response ___ Code Blue ___ Other (describe below) Pastoral Care Referral From ___ Patient ___ Family ___ Nurse ___ Physician ___ Tax Map Technician ___ Cement Truck Loader ___ Other (describe below) Sacrament/Intervention ___ Active listening ___ Anointing ___ Yazidi ___ Bereavement ___ Communion ___ Fariba exploration ___ ___ Life review ___ Prayer ___ Reconciliation ___ Sacrament of Sick ___ Supportive presence ___ Wedding ___ Other (describe below) Pastoral Comments patient was not in the room; a calling card was left
--- NOTE | 2024-01-04 16:00 | PCM.PN.HOSP ---
Reason for Visit Reason for Visit: Generalized weakness/decreased oral intake Subjective Subjective Mrs. Agustin is a 78-year-old female who presented to the emergency department at [facility] on 01/02/2024 with about 4 weeks of decreased oral intake. On presentation she reported she not been able to get out of bed for about 3 to 4 days due to weakness. She reported feeling chills but no fever was documented nor assessed 4. She complained of a mild chronic dry cough which had not changed. She admitted that she had not been seeing a doctor for about 12 years and her last physician visit was in 2011. She also complained of decreased urine output and some frequency for about a month but denied any dysuria. She reported no urine output 3 days prior to presentation. Vital signs on presentation showed a temperature of 96.8, heart rate 93, respiratory was 18, blood pressure was 149/58 and oxygen saturation was 100% on room air. CBC showed a leukocytosis with a white count of 15.5, hemoglobin was 7.6 with no previous hemoglobin available for review and a left shift. Her chemistry showed hyponatremia with a potassium of 5.7, serum bicarb of 20 and an anion gap of 16. BUN was 123 and serum creatinine was 11.3 with no previous when available for review. Glucose was 124. Liver function was were unremarkable. Her TSH was 7.18 with a free T4 of 0.81. Coags are overtly unremarkable. CT of the brain shows chronic ischemic changes in bilateral cerebral hemispheres with no acute abnormalities. Facial CT showed no evidence of acute or chronic sinusitis, degenerative narrowing of the left TMJ with the bones appear in normal right TMJ and no evidence of mass or acute abnormality in the suprahyoid neck. Chest x-ray showed no acute cardiopulmonary pathology, changes consistent with COPD and prominent right apical pleural thickening right greater than left. Given her renal dysfunction a renal ultrasound was performed and showed no significant abnormalities. With her hypokalemia, she was admitted to the telemetry floor, given IV fluids and nephrology consult was placed. For her severe anemia gastroenterology consult was placed as well. She did require transfusion and her Hemoccult was positive. She was taken for EGD on 01/04/2024 at which time she was found to have nonsevere esophagitis with no bleeding, moderate Schatzki's ring which was dilated, small hiatal hernia and segmental moderate inflammation characterized by congestion, erosions, erythema, friability and granularity in the gastric antrum which was biopsied but no signs of acute bleeding. The duodenum was normal. Plan is for colonoscopy tomorrow. Unfortunately, with hydration her renal function did not improve. Her renal function remains the same despite IV fluids. Urine output is poor. Patient states she continues to be weak. We did discuss her options for hospice versus pursuing dialysis with renal biopsy. I did discuss with her that nephrology is concerned that she may have multiple myeloma as the etiology for her renal dysfunction. At this point after extensive discussion with myself and her , she has decided to pursue dialysis knowing that she may discontinue dialysis at any time. She also is agreeable to undergoing colonoscopy. She is currently A-fib and reports that she was told when she was 13 or 15 that she had this and has never been on blood thinners.. She is amenable to this if needed. I did discuss with her first that we do need to rule out a source of GI bleeding. Objective Data Objective Data Vital Signs: Vital Signs Temp Pulse Resp BP Pulse Ox O2 Del Method O2 Flow Rate 97.7 F L 86 18 164/67 H 93 Room Air 2 01/04/24 15:59 01/04/24 15:59 01/04/24 15:59 01/04/24 15:59 01/04/24 15:59 01/04/24 15:59 01/04/24 12:40 Oxygen Flow Rate (L/min) 2 Oxygen Delivery Method Room Air Weight: 62.8 kg Body Mass Index (BMI) 23.0 Intake & Output: Intake and Output for Last 24 Hours 01/02/24 01/03/24 01/04/24 23:59 23:59 23:59 Intake Total 1467.5 / 1467.5 2431 / 2431 1788.33 / 1788.33 Output Total 0 / 0 0 / 0 Balance 1467.5 / 1467.5 2431 / 2431 1788.33 / 1788.33 Medical Nutrition Assessment Dietitian: Malnutrition Criteria Met Start: 01/03/24 11:50 Freq: Status: Active Protocol: Document 01/03/24 11:50 AG (Rec: 01/03/24 11:50 AG [id number]) Nutrition Malnutrition Evidence of Malnutrition Exists Yes Malnutrition (severe): Chronic Evidenced By Suboptimal Energy Intake ( Severe),Weight Loss (Severe) Clinical Problem Chronic Disease or Condition Related Malnutrition Etiology severe malnutrition related to inadequate energy intake Signs/Symptoms as evidenced by unintentional 12% wt loss < 6 months, 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 needs > 1 month Status Active Problem Recommendation Dietitian Recommendations/Changes If not started on dialysis and renal function remains impaired, recommend renal- protein restricted diet; if pt to start dialysis, recommend renal-general diet; will monitor PO intake as established and add ONS as indicated Lab / Micro Data 01/04/24 04:18 01/04/24 04:18 Labs: Laboratory Results - last 24 hr 01/04/24 04:18: WBC 13.3 H, RBC 3.01 L, Hgb 8.5 L, Hct 26.3 L, MCV 87.4, MCH 28.2, MCHC 32.3, RDW Std Deviation 47.2 H, RDW Coeff of Magdalene 14.8 H, Plt Count 229, MPV 10.1, Immature Gran % (Auto) 1.700 H, Neut % (Auto) 84.3 H, Lymph % (Auto) 6.1 L, [place] % (Auto) 6.0, Eos % (Auto) 1.4, Baso % (Auto) 0.5, Absolute Neuts (auto) 11.2 H, Absolute Lymphs (auto) 0.81 L, Nucleated RBC % 0, PT 16.3 H, INR 1.3, APTT 34.2, Sodium 140, Potassium 5.4 H, Chloride 110 H, Carbon Dioxide 15.0 L, Anion Gap 15, BUN 123 H*, Creatinine 11.10 H*, Estim Creat Clear Calc 3.82, Est GFR (MDRD) Af Amer 4 L, Est GFR (MDRD) Non-Af 4 L, BUN/Creatinine Ratio 11.1, Glucose 117 H, Calcium 8.7, Free T4 0.81 Micro: Microbiology 01/03/24 03:00 Stool Stool Occult Blood (MASON) - Final Occult Blood Positive Physical Exam Const alert, oriented x3, no apparent distress and average body habitus; Negative for healthy appearing or well nourished Constitutional Narrative: Older, white female, sitting up in bed watching television, initially alone but arrives at bedside, appears comfortable and nontoxic HEENT head/scalp atraumatic and moist oral mucous membranes HEENT Narrative: Dentition is poor, Mallampati is 2, no thrush Head and Scalp: normocephalic Eyes PERRL and EOMs intact bilaterally Eyes Narrative: Conjunctiva are pale bilaterally, no scleral icterus Neck no lymphadenopathy and supple Neck Narrative: Trachea midline, no thyroid enlargement Resp normal respiratory effort, no retractions, no use of accessory muscles and clear to auscultation bilaterally Resp Narrative: Diminished but clear Auscultation: Negative for rales, rhonchi or wheezes Cardio regular rate, S1 normal heart sound, S2 normal heart sound, no murmurs, no rub, no gallops and no clicks Cardio Narrative: Rate is currently normal but rhythm is irregularly irregular GI normal to inspection, nondistended, normoactive bowel sounds, soft to palpation and non-tender Extremity no clubbing, cyanosis or edema Extremity Narrative: Pedal pulses and radial pulses are 2+ Neuro oriented x3, moves all extremities and no focal motor deficits Neuro Narrative: Significant generalized weakness noted but no focal deficits identified Speech: speech normal Psych affect normal Psych Narrative: Eye contact is good and patient interacts Assessment & Plan Assessment/Plan (1) GRACE (acute kidney injury): (2) Anemia: (3) SVT (supraventricular tachycardia): (4) Hyperkalemia: (5) Metabolic acidosis: PLAN: Plan GRACE -Baseline is unknown -Patient has been oliguric -Dialysis has now been recommended as patient is not improving with hydration and creatinine remains greater than 11 -Per discussion with nephrology they are concerned that this could be related to multiple myeloma and workup is ongoing -Extensive discussion with patient and she is agreeable to dialysis at this time -Consulted general surgery for tunneled dialysis catheter placement -Nephrology notified -Immunological workup is pending -Renal biopsy is ordered -Will continue IV fluids for now as p.o. intake is poor -Will plan for dialysis as soon as dialysis catheter can be placed -Nephrology following-appreciate input Hyperkalemia -Mild but persistent with renal dysfunction -Potassium today is 5.4 next-plan is for dialysis Metabolic acidosis secondary to renal dysfunction -Serum bicarb is 15 -Will monitor for bicarb needs -Should resolve as soon as we can initiate dialysis Atrial fibrillation -this appears to be chronic -Per patient this has been an ongoing issue since she was 13 or 15 -Intermittent tachycardia with hypertension so we added Coreg 12.5 mg daily -Continue to monitor on telemetry -Will start anticoagulation as patient allows once appropriate from a medical standpoint -TSH was elevated so free T4 was obtained and normal Abnormal TSH -Normal free T4 -Suspect euthyroid sick syndrome Anemia -Chronicity is unclear -Unable to check iron studies that she was transfused 1 unit of packed red blood cells on 01/03/2024 -EGD done today with no identified source of bleeding -Plan is for colonoscopy tomorrow -Discontinue IV Protonix and transition to oral 40 mg daily with esophagitis noted on EGD -Guaiac was positive -Colonoscopy tomorrow -Hold on anticoagulation for atrial fibrillation until bleeding source can be identified if possible -If colonoscopy unremarkable will likely need outpatient close small capsule endoscopy Hypertension -Blood pressures persistently elevated -Start Coreg 12.5 mg p.o. daily and continue to monitor -As needed hydralazine for systolic blood pressure greater than 160 Debility/generalized weakness -PT/OT is following -patient would strongly prefer to go home if possible -Hopefully she will continue to improve once we start dialysis DVT prophylaxis -Chemoprophylaxis contraindicated currently because of severe anemia and positive guaiac -Continue SCDs CODE STATUS -DNR CCA with no intubation per discussion on admission Charges/Coding Visit Charges Inpatient E&M: 93562 [facility] Hosp L3
[2024-01-04] MEDS: Bisacodyl 5 MG Tablet 20 MG PO (16:08)
--- NOTE | 2024-01-04 16:14 | PCM.PN.BLA ---
Progress Note patient went for endoscopy. could not examine. dw Dr Rebolledo. needs HD. likely kidney bx as well.
[2024-01-04] MEDS: Polyethylene Glycol 3350 BOWEL PREP PO (18:43)
--- NOTE | 2024-01-04 20:24 | EX.PCM.CON.S ---
Assessment & Plan Assessment/Plan (1) GRACE (acute kidney injury): (2) Renal failure: (3) Metabolic acidosis: (4) Hyperkalemia: (5) Renal azotemia: PLAN: Plan Patient is a 78-year-old female with history of minimal medical diagnoses owing to minimal contact with medical community but is diagnosed with acute kidney injury and renal failure requiring initiation of hemodialysis. Through discussions with patient's primary team and nephrology patient has provided her consent to proceed and surgery has been asked for placement of a tunneled hemodialysis catheter. Patient has no prior history of central lines and does not appear to have any positive blood cultures. Thus I find this a reasonable request and have discussed the reasons for dialysis to include the above (metabolic acidosis, hyperkalemia, and renal azotemia?). Further I have discussed the risks of indefinite catheter use for hemodialysis and tried to introduce the topic of extremity fistulas for chronic dialysis use. Patient appears to have reluctantly excepted this new reality and does not wish to consider this new information much. She does state that she is willing to proceed as described and will plan for tunneled hemodialysis catheter insertion tomorrow?01/05/2024. Patient to be held n.p.o. past midnight anticipation of this procedure. Michael Ashton MD General Surgery Endocrine Surgery Pager: [facility] [address] [place] [address], [address] [place] [address] Office: [phone] HPI Consult Data Date of Consult: 01/04/24 HPI Narrative Reason for Consultation: Insertion of tunneled hemodialysis catheter HPI Narrative: DIAN WEBB, is a 78 F who presented to [facility] on 01/02/2024 with complaints of generalized weakness as well as approximately 1 month of decreased urine output. Her ER workup revealed evidence of severe renal dysfunction and anemia. Despite fluid resuscitation her renal function has continued to deteriorate. Patient has been approached by nephrology about initiation of dialysis and I agreed to proceed. In the interim her anemia is under workup with GI. Patient reportedly underwent EGD earlier today that was unrevealing for a source of her apparent blood loss. Patient has no history of renal dysfunction prior to this admission. That acknowledge, patient denies regular follow-up with medical providers and it is suggested that she has been 12 years since her last checkup. She denies any history of prior central line placement. [facility] Medical History (Updated 01/04/24 @ 20:[address] Michael Ashton MD) Hyperkalemia Medical History no medical history Home Medications ascorbic acid (vitamin C) 250 mg tablet 250 mg PO DAILY 01/02/24 [History Last Taken Unknown] cholecalciferol (vitamin D3) 25 mcg (1,000 unit) capsule 25 mcg PO DAILY 01/02/24 [History Last Taken Unknown] cyanocobalamin (vitamin B-12) 1,000 mcg capsule 1,000 mcg PO DAILY 01/02/24 [History Last Taken Unknown] iron,carbonyl-vitamin C-FOS 1 tab PO DAILY 01/02/24 [History Last Taken Unknown] magnesium citrate 100 mg tablet 400 mg PO DAILY 01/02/24 [History Last Taken Unknown] multivitamin (Daily Multi-Vitamin tablet) 1 tab PO DAILY 01/02/24 [History Last Taken Unknown] Allergy/AdvReac Type Severity Reaction Status Date / Time No Known Allergies Allergy Verified 01/02/24 11:36 Social History Smoking Status: Former smoker Physical Exam Const alert, oriented x3 and no apparent distress General Appearance: cooperative Orientation / Consciousness: confused Neck Neck Narrative: No scars, rashes or erythema to suggest infection Chest Chest Narrative: Telemetry leads in place without signs of scars, rashes, or other erythema to suggest infection Medical Records Data Medical Nutrition Assessment Dietitian: Malnutrition Criteria Met Start: 01/03/24 11:50 Freq: Status: Active Protocol: Document 01/03/24 11:50 AG (Rec: 01/03/24 11:50 [id number]) Nutrition Malnutrition Evidence of Malnutrition Exists Yes Malnutrition (severe): Chronic Evidenced By Suboptimal Energy Intake ( Severe),Weight Loss (Severe) Clinical Problem Chronic Disease or Condition Related Malnutrition Etiology severe malnutrition related to inadequate energy intake Signs/Symptoms as evidenced by unintentional 12% wt loss < 6 months, 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 needs > 1 month Status Active Problem Recommendation Dietitian Recommendations/Changes If not started on dialysis and renal function remains impaired, recommend renal- protein restricted diet; if pt to start dialysis, recommend renal-general diet; will monitor PO intake as established and add ONS as indicated Lab / Micro Data 01/04/24 04:18 01/04/24 04:18 Labs: Laboratory Results - last 24 hr 01/04/24 04:18: WBC 13.3 H, RBC 3.01 L, Hgb 8.5 L, Hct 26.3 L, MCV 87.4, MCH 28.2, MCHC 32.3, RDW Std Deviation 47.2 H, RDW Coeff of Magdalene 14.8 H, Plt Count 229, MPV 10.1, Immature Gran % (Auto) 1.700 H, Neut % (Auto) 84.3 H, Lymph % (Auto) 6.1 L, [place] % (Auto) 6.0, Eos % (Auto) 1.4, Baso % (Auto) 0.5, Absolute Neuts (auto) 11.2 H, Absolute Lymphs (auto) 0.81 L, Nucleated RBC % 0, PT 16.3 H, INR 1.3, APTT 34.2, Sodium 140, Potassium 5.4 H, Chloride 110 H, Carbon Dioxide 15.0 L, Anion Gap 15, BUN 123 H*, Creatinine 11.10 H*, Estim Creat Clear Calc 3.82, Est GFR (MDRD) Af Amer 4 L, Est GFR (MDRD) Non-Af 4 L, BUN/Creatinine Ratio 11.1, Glucose 117 H, Calcium 8.7, Free T4 0.81 Charges/Coding Visit Charges Inpatient E&M: 94687 Init Hosp L2
--- NOTE | 2024-01-04 20:39 | MDS.RN ---
Pt son called in for an update on his mother, not on the contact list. Patient agreeable to adding son to contact list. Update provided to son, stating he is understanding the poc and expressing thanks for care.
[2024-01-05] VITALS (40 sets, daily range): BP systolic 78–156; BP diastolic 29–113; PULSE 59–115; RESP 12–21; TEMP 36–36.9; O2SAT 83–99; BMI 23.2
--- NOTE | 2024-01-05 | KI_PTH ---
PATIENT: DIAN WEBB LOC: [facility] U#:[id number] AGE/SX: 78/F ROOM: [facility] RE01/02/[address]: Dr. Jena Rebolledo DO : 1945 BED: 1 DIS: 01/08/2024 SPEC #: [id number] RECD: 01/05/24 11:31 STATUS: DALE REQ #: [id number] KAREN: 01/05/24 00:[address]: Jena Rebolledo DEPT: SURGICAL PATHOLOGY RECD BY: Tessa Fernandez ENTERED: 01/05/24 11:32 SP TYPE: KIDNEY BX OTHR DR: MD Dr. Adama Mcginnis MD Dr. Michael Bortz, MD Dr. Prakash Chand, MD No Primary Care Phys Tissues: Kidney, NOS Procedures: Fluorescent Antibody (ACH) Kidney Biopsy (ACH) Surgery Specimen Level I HEADER OPERATION: CT guided right kidney biopsy PRE-OP DIAGNOSIS: Acute kidney injury. History of atrial fibrillation, abnormal thyroid stimulating hormone, anemia, esophagitis, hypertension, generalized weakness TISSUE SUBMITTED: 18-guage corex4 kidney biopsy MICROSCOPIC DIAGNOSIS Per [facility]- Right kidney, biopsies: Crescentic glomerulonephritis with fibrinoid necrosis. Diffuse acute tubulointerstitial inflammation. Arteriosclerotic changes. Focal polarizable tubule crystal formation. See comment. 01/08/24 COMMENT Correlate clinically with history and onset of symptoms. Correlate with Positive ANCA serology. Preliminary immunofluorescence findings and concern for crescentic glomerulonephritis conveyed by Dr. Cagle on December by Dr. Bautista. No glomeruli are identified on toluidine blue sections; therefore, electron microscopy is deferred. Immunofluorescence profile is essentially negative and consistent with pauci-immune process. MICROSCOPIC DESCRIPTION Slides are reviewed. GROSS DESCRIPTION Per [facility]- Right kidney: Received in poly-transport medium in a container labeled with the patient's name, medical record number, and designation right kidney are 4 core fragments of crooks renal tissue measuring 1.2 x 1.2 x 1.1cm and 0.7cm, each by approximately 0.1cm in width. Sparse glomeruli are seen under the dissecting microscope. The specimen is divided for electron microscopy, immunofluorescence and light microscopy. Mr 01/08/24
[2024-01-05] MEDS: 0.9% Normal Saline (1000mL) 1,000 ML 100 ML IV (01:27)
--- NOTE | 2024-01-05 05:55 | EKG12_ITS ---
Test Reason : AM EKG Blood Pressure : / mmHG Vent. Rate : 091 BPM Atrial Rate : 000 BPM P-R Int : 000 ms QRS Dur : 134 ms QT Int : 420 ms P-R-T Axes : 000 -80 024 degrees QTc Int : 516 ms SINUS RHYTM WITH SHORT RUN SVT Left axis deviation Right bundle branch block Septal infarct , age undetermined Abnormal ECG Confirmed by Michael Bergeron ([id number]), newspaper photo editor VANNA THOMAS ([id number]) on 01/05/2024 10:07:04 AM Referred By: Confirmed By:Michael Bergeron
--- NOTE | 2024-01-05 08:18 | NURSING ---
Upon AM VSS at shift change, patient was noted to be hypoxic at 83% on room air, 2LNC applied to patient, patient rebounded to 94% and is stable at this time.
[2024-01-05 08:35] LABS: Hematocrit 24.7 % (37-47); Hemoglobin 7.9 g/dL (12.0-15.0); Mean Corpuscular Hgb 28.8 pg (27.0-32.0); Mean Corpuscular Volume 90.1 fL (81-99); Mean Platelet Vol. 10.5 fl (6.2-12.0); Platelet Count 248 K/mm3 (150-450); RBC Distribution Width CV 15.5 % (11.6-14.6); RBC Distribution Width SD 50.7 fl (35.1-43.9); Red Blood Count 2.74 M/mm3 (4.2-5.4); White Blood Count 11.5 K/mm3 (4.4-11.0)
[2024-01-05 08:36] LABS: International Normalized Ratio 1.4; Prothrombin Time (Protime)PT. 17.4 SECONDS (11.7-14.9)
[2024-01-05 08:37] LABS: Partial Thromboplast Time 35.2 Seconds (24.1-36.2)
[2024-01-05 08:59] LABS: Anion Gap 14 (5-15); BUN 126 mg/dL (7-18); BUN/Creat Ratio 10.8 RATIO (10-20); Calcium,Total 8.7 mg/dL (8.5-10.1); Chloride 115 mmol/L (98-107); EST Glomerular Filtration Rate 3 mL/min (>60); Est Glom Filt Rate - Afr Amer 4 mL/min (>60); Estimated Creatinine Clearance 3.62 ml/min; Glucose 94 mg/dL (74-106); Potassium 5.6 mmol/L (3.5-5.1); Sodium Level 141 mmol/L (136-145)
--- NOTE | 2024-01-05 09:17 | NURSING ---
patient left floor for u/s guided kidney biopsy
[2024-01-05] MEDS: Midazolam 2 MG/2 ML Syringe IV (10:25)
[2024-01-05] MEDS: fentaNYL 100 MCG/2 ML Ampul IV (10:28)
--- NOTE | 2024-01-05 10:37 | NURSING ---
Per radiology, they just began kidney biopsy, patient be to transferred to AC after biopsy vs returning to floor prior to AC.
[2024-01-05] MEDS: Lidocaine 2% (20 ml mdv) 20 ML Vial INFILT (10:45)
--- NOTE | 2024-01-05 11:11 | PCM.OP.PRO ---
Procedure Report Date of Procedure: 01/05/24 Assessment & Plan Assessment/Plan (1) GRACE (acute kidney injury): PLAN: PROCEDURE: CT GUIDED RIGHT PERCUTANEOUS KIDNEY BIOPSY. ORDERING PROVIDER: Dr. Jena Rebolledo INDICATION: Female, 78 years old. Acute kidney injury. PROVIDER: TRES Staton CONSENT: Written informed consent was obtained having explained the risks, benefits and alternatives in detail with the patient. The specific risk of hemorrhage requiring further treatment or intervention was detailed and accepted. The patient accepted the risks and agreed to proceed. Laboratory review and clinical assessment was performed. PRE-PROCEDURE SEDATION ASSESSMENT: Current history and physical dictated by referring provider and reviewed. No clinical changes since date of exam. Patient has an ASA Class of 3. PROCEDURAL SEDATION PROTOCOL: The Drugs used were: 1 mg Versed, IV, and 25 mcg Fentanyl, IV. The sedation time was: 32 minutes, starting at 1025 and terminated at 1057. The procedural sedation protocol was independently monitored by the department nurse. RADIATION DOSAGE (If Supplied By Facility): CTDIvol = 12.26 mGy, DLP = 355.95 mGycm Individualized dose optimization techniques were used for this CT. TECHNIQUE: The patient was placed on the CT table in the prone position. Multiple axial images were obtained from the lung base through the caudal extent of the kidneys. An appropriate entry site was identified and a she made on the skin. The skin overlying the right posterior flank was prepped and draped in sterile fashion. 2% lidocaine was administered subcutaneously for local anesthesia. Using CT guidance, an 18-gauge coaxial biopsy device was advanced to the medial midportion of the right kidney. A total of 4 core specimens were obtained. Specimens were microscopically reviewed by pathology in the CT suite and placed in formalin solution for further analysis. The needle was withdrawn. Hemostasis was achieved with manual compression and a sterile dressing was applied. The patient tolerated the procedure well without immediate complications. The patient returned to the holding bay in stable condition for nursing monitoring, per protocol. IMPRESSION: 1. Successful CT guided percutaneous right kidney biopsy. Pathology results are pending. 2. Procedural Sedation protocol utilized with independent monitoring by the department nurse. Procedures Radiology Radiology CT Procedures: 51316 Biopsy Kidney
[2024-01-05] MEDS: 0.9% Normal Saline (1000mL) 1,000 ML 15 ML IV (11:37)
--- NOTE | 2024-01-05 12:30 | COLBX_PTH ---
PATIENT: DIAN WEBB LOC: [facility] U#:[id number] AGE/SX: 78/F ROOM: [facility] RE01/02/[address]: Dr. Jena Rebolledo DO : 1945 BED: 1 DIS: 01/08/2024 SPEC #: [id number] RECD: 01/05/24 16:06 STATUS: DALE REAletha #: [id number] KAREN: 01/05/24 12:[address]: Manolo Ojeda DEPT: SURGICAL PATHOLOGY RECD BY: Annalisa Guerrero ENTERED: 01/06/24 07:46 SP TYPE: COLON BX OTHR DR: MD Dr. Adama Mcginnis MD Dr. Kathryn Lee, DO Dr. Michael Bortz, MD Dr. Prakash Chand, MD No Primary Care Phys Tissues: Sigmoid colon biopsy Procedures: Surgery Specimen Level IV HEADER OPERATION: Colonoscopy in OR, biopsy PRE-OP DIAGNOSIS: Anemia TISSUE SUBMITTED: Sigmoid biopsy MICROSCOPIC DIAGNOSIS Sigmoid, biopsy: Focal mild acute colitis. See comment. Yovana 01/07/24 COMMENT Focal minimal glandular distortion and cryptitis are noted. Granulomas are not seen. No evidence of dysplasia. Correlation with clinical, endoscopic findings and appropriate follow up are necessary. MICROSCOPIC DESCRIPTION Slides are reviewed. GROSS DESCRIPTION Received in fixative is one container labeled with the patient's name and designated Sigmoid biopsy. The specimen consists of two irregular fragments of light crooks soft tissue that in aggregate measure 0.6 x 0.5 x 0.2 cm. The specimen is totally submitted in one cassette. 01/06/24 TC:2 CPT:72965
[2024-01-05 13:08] LABS: Anti-dsDNA Ab <1 IU/mL (0-9)
[2024-01-05] MEDS: Cefazolin 2 GM in 0.9% Normal Saline (100mL Bag) 100 ML IV (13:23)
[2024-01-05] MEDS: Heparin 10,000 UNITS/10 ML Vial IV (13:58)
[2024-01-05] MEDS: Bupivacaine 0.5% PF 10 ML VIAL (13:59)
--- NOTE | 2024-01-05 14:39 | PCM.OPRPT ---
Report of Operation Date of Procedure: 01/05/24 Pre-Operative Diagnosis: Acute kidney injury and renal failure requiring hemodialysis access Post-Operative Diagnosis: Same Surgery/Procedure Performed:: Ultrasound and fluoroscopic guided placement of right internal jugular hemodialysis catheter Description of Surgical Findings:: Widely patent right internal jugular vein with good flow per color Doppler Surgeon: Michael Ashton mechanical test technician: None Type of Anesthesia: MAC/Supplemental/Local Anesthesiologist: Micah Nayak Estimated Blood Loss (mL): 5 Description of Procedure: After appropriate identification in the preoperative holding area the patient was brought to the operating room where they were positioned supine on the operating room table. Preoperative antibiotics were completely administered. Sedation was begun per anesthesia and the patient's right neck was prepped and draped in usual sterile fashion then I confirmed patency of the right internal jugular vein with bedside ultrasound. Formal timeout was conducted to confirm both the patient and the procedure. Procedure was begun with ultrasound-guided access of the right internal jugular vein using a micropuncture access kit. Fluoroscopy confirmed appropriate position of the wire and the micro access sheath. At this point I made a measurement from the insertion site to the mid atrium of approximately 15 cm. Desiring some room for the patient's tunneling/cuff placement, elected to proceed with a 19 cm catheter. The 035 guidewire from the catheter kit was placed through the micro access sheath and again fluoroscopy was used to confirm this placement. The insertion site was then enlarged sharply and bluntly. Measuring back from the proximal insertion site on the catheter, we determined that the tunneling site would need to be at least 7 cm away from the insertion site. Therefore this was measured out on the patient's chest and a counterincision was made at this point after instilling local anesthetic. A gentle curve of the tunneling tract to the insertion site was also instilled with local anesthetic. Then the catheter was connected to the tunneling device and was tunneled to the insertion site. Next the insertion site was serially dilated and the peel-away sheath was placed under fluoroscopy. The catheter was fed through the peel-away sheath and once we neared completion another fluoroscopy image was obtained. Functionally, the catheter was tested with aspiration and flush of injectable saline which it did with ease. The insertion site was then closed with a single interrupted 2-0 nylon stitch. Another 2-0 nylon stitch was used to close down the insertion site at the tunneling entrance as a means of creating a cerclage. Lastly, the catheter was secured at the tiedown points on each port with a interrupted 2-0 nylon. Now each catheter lumen was locked with 2 mL heparinized saline (concentration 1000 units/mL) per package specification. Chlorhexidine gel dressing was placed about the catheter. A small OpSite was applied to the insertion site. Patient was then allowed to emerge from sedation and was taken to PACU in stable condition. A chest x-ray was ordered in PACU for review of the catheter placement and to exclude pneumothorax. Grafts/Implants Used: 14.5 Khmer palindrome reference [id number], lot [id number] Complications None Procedures Cardiovascular CF Procedures 33xxx-39xxx: [id number] Insert tunneled cv cath
--- NOTE | 2024-01-05 14:53 | OP.COLON_ITS ---
Patient Name: Julia Agustin Procedure Date: 01/05/2024 12:55 PM Date of : 1945 Age: 78 Procedure: Colonoscopy Indications: Iron deficiency anemia Providers: Manolo Ojeda DO Medicines: Monitored Anesthesia Care Patient Profile: This is a 78 year old female. Refer to note in patient chart for documentation of history and physical. Last Colonoscopy: date unknown. Unable to locate last colonoscopy report. Complications: No immediate complications. Procedure: Pre-Anesthesia Assessment: - Prior to the procedure, a History and Physical was performed, and patient medications and allergies were reviewed. The patient is competent. The risks and benefits of the procedure and the sedation options and risks were discussed with the patient. All questions were answered and informed consent was obtained. Patient identification and proposed procedure were verified by the physician. Mental Status Examination: alert and oriented. Airway Examination: normal oropharyngeal airway and neck mobility. Prophylactic Antibiotics: The patient does not require prophylactic antibiotics. Prior Anticoagulants: The patient has taken no anticoagulant or antiplatelet agents. ASA Grade Assessment: III - A patient with severe systemic disease. After reviewing the risks and benefits, the patient was deemed in satisfactory condition to undergo the procedure. The anesthesia plan was to use monitored anesthesia care (MAC). Immediately prior to administration of medications, the patient was re-assessed for adequacy to receive sedatives. The heart rate, respiratory rate, oxygen saturations, blood pressure, adequacy of pulmonary ventilation, and response to care were monitored throughout the procedure. The physical status of the patient was re-assessed after the procedure. After I obtained informed consent, the scope was passed under direct vision. Throughout the procedure, the patient's blood pressure, pulse, and oxygen saturations were monitored continuously. The Colonoscope was introduced through the anus and advanced to the cecum, identified by appendiceal orifice and ileocecal valve. The colonoscopy was performed without difficulty. The patient tolerated the procedure well. The quality of the bowel preparation was adequate. The ileocecal valve, appendiceal orifice, and rectum were photographed. Scope In: 2:27:25 PM Scope Withdrawal Time 0 hours 7 minutes 7 seconds Scope Out: 2:44:09 PM Total Procedure Duration Time 0 hours 16 minutes 44 seconds Findings: The perianal and digital rectal examinations were normal. Multiple small and large-mouthed diverticula were found in the recto-sigmoid colon and sigmoid colon. Localized moderate inflammation characterized by congestion (edema), erosions, erythema, friability and granularity was found in the recto-sigmoid colon, in the sigmoid colon and in the descending colon. Biopsies were taken with a cold forceps for histology. Verification of patient identification for the specimen was done. Estimated blood loss was minimal. Stool was found in the cecum. Impression: - Diverticulosis in the recto-sigmoid colon and in the sigmoid colon. - Localized moderate inflammation was found in the recto-sigmoid colon, in the sigmoid colon and in the descending colon secondary to ischemic colitis. Biopsied. - Stool in the cecum. Recommendation: - [facility] to [facility] for [facility] care. - Resume previous diet. - Continue present medications. - Await pathology results. - Repeat colonoscopy. Procedure Code(s): --- Professional --- 74470, Colonoscopy, flexible; with biopsy, single or multiple CPT copyright 2021 [employer]. All rights reserved. The codes documented in this report are preliminary and upon head scorer review may be revised to meet current compliance requirements. Manolo Ojeda DO 01/05/2024 2:53:00 PM This report has been signed electronically. Number of Addenda: 0 Note Initiated On: 01/05/2024 12:55 PM
--- NOTE | 2024-01-05 14:53 | OP.CCLET_ITS ---
01/05/2024 No Primary Care Physician Re : Colonoscopy procedure for Julia Agustin [facility] Care Physician This procedure was performed on Friday, January 05, 2024. My impressions and recommendations are as follows: Impressions : - Diverticulosis in the recto-sigmoid colon and in the sigmoid colon. - Localized moderate inflammation was found in the recto-sigmoid colon, in the sigmoid colon and in the descending colon secondary to ischemic colitis. Biopsied. - Stool in the cecum. Recommendations : - Return patient to [facility] for ongoing care. - Resume previous diet. - Continue present medications. - Await pathology results. - Repeat colonoscopy. My findings are described in the full procedure note, which is enclosed. If I can be of further assistance, please feel free to contact me at . Sincerely, Manolo Ojeda, 01/05/2024 2:53:00 PM This report has been signed electronically.
--- NOTE | 2024-01-05 15:05 | RAD_ITS ---
STUDY: X-RAY CHEST REASON FOR EXAM: Female, 78 years old. Status post hemodialysis catheter insertion TECHNIQUE: Single AP portable view of the chest. COMPARISON: Comparison is made with prior study January 02, 2024. FINDINGS: A right-sided double-lumen catheter has been placed with the tip at the junction of the superior vena cava and right atrium. EKG electrode is seen.
--- NOTE | 2024-01-05 15:06 | SUR.PHASEI ---
1500 bp did not cycle as patient was being moved around for xray
--- NOTE | 2024-01-05 15:44 | SUR.PHASEI ---
gown had drainage on it from procedure, changed before sending back to [facility]
[2024-01-05] MEDS: 0.9% Normal Saline (1000mL) 1,000 ML 999 ML IV (16:18)
--- NOTE | 2024-01-05 16:53 | NURSING ---
md assessed patient bp coming up patient more alert ivf bolus infusing
[2024-01-05] MEDS: Midodrine HCl 5 MG Tablet 10 MG PO (16:55)
--- NOTE | 2024-01-05 17:18 | PCM.PN.HOSP ---
Reason for Visit Reason for Visit: Generalized weakness/decreased oral intake Subjective Subjective No issues through the night. Patient said multiple procedures today including colonoscopy, kidney biopsy, and tunneled dialysis catheter placement. Came back from PACU with a systolic blood pressure of 80 and diastolic of 40. Improved with Trendelenburg and currently getting 1 L of IV fluids. Patient is mentating decently but appears tired. I suspect her blood pressure issues are likely related to decreased drug clearance due to her extremely poor renal function Objective Data Objective Data Vital Signs: Vital Signs Temp Pulse Resp BP Pulse Ox O2 Del Method O2 Flow Rate 98.3 F 98 14 98/37 L 92 Nasal Cannula 5 01/05/24 16:41 01/05/24 16:41 01/05/24 16:41 01/05/24 16:41 01/05/24 16:41 01/05/24 16:41 01/05/24 16:41 Oxygen Flow Rate (L/min) 5 Oxygen Delivery Method Nasal Cannula Weight: 63.4 kg Body Mass Index (BMI) 23.2 Intake & Output: Intake and Output for Last 24 Hours 01/03/24 01/04/24 01/05/24 23:59 23:59 23:59 Intake Total 2431 / 2431 2246.67 / 2246.67 1110 / 1110 Output Total 0 / 0 Balance 2431 / 2431 2246.67 / 2246.67 1110 / 1110 Medical Nutrition Assessment Dietitian: Malnutrition Criteria Met Start: 01/03/24 11:50 Freq: Status: Active Protocol: Document 01/03/24 11:50 AG (Rec: 01/03/24 11:50 AG [id number]) Nutrition Malnutrition Evidence of Malnutrition Exists Yes Malnutrition (severe): Chronic Evidenced By Suboptimal Energy Intake ( Severe),Weight Loss (Severe) Clinical Problem Chronic Disease or Condition Related Malnutrition Etiology severe malnutrition related to inadequate energy intake Signs/Symptoms as evidenced by unintentional 12% wt loss < 6 months, 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 needs > 1 month Status Active Problem Recommendation Dietitian Recommendations/Changes If not started on dialysis and renal function remains impaired, recommend renal- protein restricted diet; if pt to start dialysis, recommend renal-general diet; will monitor PO intake as established and add ONS as indicated Lab / Micro Data 01/05/24 07:45 01/05/24 07:45 Labs: Laboratory Results - last 24 hr 01/04/24 04:18: Double Strand DNA Ab <1, Complement C4 19 01/05/24 07:45: WBC 11.5 H, RBC 2.74 L, Hgb 7.9 L, Hct 24.7 L, MCV 90.1, MCH 28.8, MCHC 32.0, RDW Std Deviation 50.7 H, RDW Coeff of Magdalene 15.5 H, Plt Count 248, MPV 10.5, PT 17.4 H, INR 1.4, APTT 35.2, Sodium 141, Potassium 5.6 H, Chloride 115 H, Carbon Dioxide 12.0 L, Anion Gap 14, BUN 126 H*, Creatinine 11.70 H*, Estim Creat Clear Calc 3.62, Est GFR (MDRD) Af Amer 4 L, Est GFR (MDRD) Non-Af 3 L, BUN/Creatinine Ratio 10.8, Glucose 94, Calcium 8.7 Micro: Microbiology 01/03/24 03:00 Stool Stool Occult Blood (MASON) - Final Occult Blood Positive Radiography Diagnostic Testing: Radiology Impression Chest X-Ray 01/05/24 15:05 IMPRESSION: Progressive pleural parenchymal changes at the left lung base. Stable increased markings at the lung apices. A right-sided double-lumen catheter has been placed with the tip at the junction of the superior vena cava and right atrium. Electronically Signed: Willam Del Angel MD at 15:30 EDT , Physical Exam Const alert, no apparent distress and average body habitus; Negative for healthy appearing or well nourished Constitutional Narrative: Older, white female, lying in bed in Trendelenburg with nursing at bedside, 1 L IV bolus running at this time, appears comfortable and nontoxic, mild confusion with hypotension HEENT head/scalp atraumatic and moist oral mucous membranes HEENT Narrative: Mallampati 2, no thrush Head and Scalp: normocephalic Eyes PERRL and EOMs intact bilaterally Eyes Narrative: Conjunctiva are pale bilaterally, no scleral icterus Neck no lymphadenopathy and supple Neck Narrative: Trachea midline, no thyroid enlargement Resp normal respiratory effort, no retractions, no use of accessory muscles and clear to auscultation bilaterally Resp Narrative: Diminished but clear Auscultation: Negative for rales, rhonchi or wheezes Cardio regular rate, S1 normal heart sound, S2 normal heart sound, no murmurs, no rub, no gallops and no clicks Cardio Narrative: Rate is currently normal but rhythm is irregularly irregular GI normal to inspection, nondistended, normoactive bowel sounds, soft to palpation and non-tender Extremity Extremity Narrative: Pedal pulses and radial pulses are 2+, no cyanosis or clubbing, trace bilateral lower extremity edema Neuro moves all extremities and no focal motor deficits Neuro Narrative: Significant generalized weakness noted but no focal deficits identified Speech: speech normal Psych affect normal Psych Narrative: Eye contact is good and patient interacts Assessment & Plan Assessment/Plan (1) GRACE (acute kidney injury): (2) Anemia: (3) SVT (supraventricular tachycardia): (4) Hyperkalemia: (5) Metabolic acidosis: (6) Hypotension: PLAN: Plan GRACE -Baseline is unknown -Remains oliguric -Immunological workup is still pending -Renal biopsy done today -Hold off on any further IV fluids unless we need a bicarb drip as she appears to not be getting volume overloaded -Tunneled dialysis catheter placed today with plans for dialysis tomorrow -Nephrology following-appreciate input Hypotension -Midodrine 10 mg x 1 dose given as well as 1 L of IV fluids -Likely iatrogenic from sedation use for procedures today and decreased clearance due to renal dysfunction as well as beta-christiano given this morning -Unfortunately, patient did not respond to IV fluids and midodrine so we will need to transfer to ICU for pressors -Discussed with nursing staff on ICU and instructed to give bicarb first for acidosis as pressors will work better in a more alkaline environment -Hold Coreg Hyperkalemia -Mild but persistent with renal dysfunction -Potassium today is 5.6 -Likely exacerbated by her acidosis Nonanion gap metabolic acidosis secondary to renal dysfunction -Serum bicarb is down to 12 -Discussed acidosis with nephrology and they recommended we give 2 Amps of bicarb now -Order placed -If does not respond to pressors may need to start bicarb drip -Should resolve as soon as we can initiate dialysis Atrial fibrillation -this appears to be chronic -Per patient this has been an ongoing issue since she was 13 or 15 -Hold Coreg for now due to hypotension and restart once blood pressure improves -Continue to monitor on telemetry -Will start anticoagulation as patient allows once appropriate from a medical standpoint Abnormal TSH -Normal free T4 -Suspect euthyroid sick syndrome Anemia -Chronicity is unclear -Unable to check iron studies that she was transfused 1 unit of packed red blood cells on 01/03/2024 -EGD done 01/04/2024 with no identified source of bleeding -Plan is for colonoscopy done on 01/05/2024 and showed diverticulosis in the rectosigmoid colon and sigmoid colon, localized moderate inflammation in the rectosigmoid colon, sigmoid colon and descending colon consistent with ischemic colitis, biopsies were taken and pending -Hold on anticoagulation for atrial fibrillation until bleeding source can be identified if possible -Will start anticoagulation once okay with gastroenterology -If colonoscopy unremarkable will likely need outpatient close small capsule endoscopy Esophagitis -Continue Protonix 40 mg daily Hypertension -Hypotension after procedures today -Hold Coreg -Will restart Coreg when hemodynamics improve -As needed hydralazine for systolic blood pressure greater than 160 Debility/generalized weakness -PT/OT is following -patient would strongly prefer to go home if possible -Hopefully she will continue to improve once we start dialysis DVT prophylaxis -Chemoprophylaxis contraindicated currently because of severe anemia and positive guaiac -Continue SCDs CODE STATUS -DNR CCA with no intubation per discussion on admission Charges/Coding Visit Charges Inpatient E&M: 77176 Subs Hosp L3
[2024-01-05] MEDS: Sodium Bicarbonate 8.4% 50 ML Syringe 100 MEQ IV (17:35)
--- NOTE | 2024-01-05 17:50 | NURSING ---
called son and updated patient transferred to icu
[2024-01-06] VITALS (36 sets, daily range): BP systolic 61–139; BP diastolic 38–108; PULSE 63–102; RESP 14–121; TEMP 36.1–36.9; O2SAT 89–100; BMI 24.1
[2024-01-06 04:52] LABS: Absolute Lymphocyte Count 0.71 X10^3/uL (0.83-4.51); Absolute Neutrophil Count 11.8 X10^3/uL (2.0-7.7); Basophil# 0.06 X10^3/uL; Basophil% 0.4 % (0-1); Eosinophil# 0.29 X10^3/uL; Eosinophils% 2.1 % (0-5); Hematocrit 29.4 % (37-47); Lymphocyte # 0.71 X10^3/ul (0.83-4.51); Lymphocyte % 5.2 % (19-41); Mean Corp Hgb Conc 30.6 g/dL (32-36); Mean Corpuscular Volume 91.3 fL (81-99); Mean Platelet Vol. 10.3 fl (6.2-12.0); Monocyte# 0.66 X10^3/uL; Monocyte% 4.8 % (0-10); NRBC Flagged by Analyzer 0 % (0-5); Neutrophil # 11.84 X10^3/uL (2.7-7.7); Neutrophil % 86.6 % (47-70); Platelet Count 326 K/mm3 (150-450); RBC Distribution Width CV 15.9 % (11.6-14.6); RBC Distribution Width SD 52.6 fl (35.1-43.9); Red Blood Count 3.22 M/mm3 (4.2-5.4); White Blood Count 13.7 K/mm3 (4.4-11.0)
[2024-01-06 05:08] LABS: Anion Gap 15 (5-15); BUN 135 mg/dL (7-18); BUN/Creat Ratio 11.8 RATIO (10-20); Calcium,Total 8.9 mg/dL (8.5-10.1); Chloride 116 mmol/L (98-107); EST Glomerular Filtration Rate 3 mL/min (>60); Est Glom Filt Rate - Afr Amer 4 mL/min (>60); Estimated Creatinine Clearance 3.72 ml/min; Glucose 107 mg/dL (74-106); Potassium 5.4 mmol/L (3.5-5.1); Sodium Level 143 mmol/L (136-145)
--- NOTE | 2024-01-06 06:29 | PCM.PN.SRG ---
Objective Data Objective Data Vital Signs: Vital Signs Temp Pulse Resp BP Pulse Ox O2 Del Method O2 Flow Rate 97 F L 94 16 127/58 H 92 Nasal Cannula 4 01/06/24 05:46 01/06/24 06:00 01/06/24 06:00 01/06/24 06:00 01/06/24 06:00 01/06/24 06:00 01/06/24 06:00 Oxygen Flow Rate (L/min) 4 Oxygen Delivery Method Nasal Cannula Weight: 145 lb 1.027 oz Body Mass Index (BMI) 24.1 Intake & Output: Intake and Output for Last 24 Hours 01/04/24 01/05/24 01/06/24 23:59 23:59 23:59 Intake Total 2246.67 / 2246.67 2109 Balance 2246.67 / 2246.67 2109 Medical Nutrition Assessment Dietitian: Malnutrition Criteria Met Start: 01/03/24 11:50 Freq: Status: Active Protocol: Document 01/03/24 11:50 AG (Rec: 01/03/24 11:50 AG [id number]) Nutrition Malnutrition Evidence of Malnutrition Exists Yes Malnutrition (severe): Chronic Evidenced By Suboptimal Energy Intake ( Severe),Weight Loss (Severe) Clinical Problem Chronic Disease or Condition Related Malnutrition Etiology severe malnutrition related to inadequate energy intake Signs/Symptoms as evidenced by unintentional 12% wt loss < 6 months, 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 needs > 1 month Status Active Problem Recommendation Dietitian Recommendations/Changes If not started on dialysis and renal function remains impaired, recommend renal- protein restricted diet; if pt to start dialysis, recommend renal-general diet; will monitor PO intake as established and add ONS as indicated Lab / Micro Data 01/06/24 04:45 01/06/24 04:45 Labs: Laboratory Results - last 24 hr 01/04/24 04:18: Double Strand DNA Ab <1, Complement C4 19 01/05/24 07:45: WBC 11.5 H, RBC 2.74 L, Hgb 7.9 L, Hct 24.7 L, MCV 90.1, MCH 28.8, MCHC 32.0, RDW Std Deviation 50.7 H, RDW Coeff of Magdalene 15.5 H, Plt Count 248, MPV 10.5, PT 17.4 H, INR 1.4, APTT 35.2, Sodium 141, Potassium 5.6 H, Chloride 115 H, Carbon Dioxide 12.0 L, Anion Gap 14, BUN 126 H*, Creatinine 11.70 H*, Estim Creat Clear Calc 3.62, Est GFR (MDRD) Af Amer 4 L, Est GFR (MDRD) Non-Af 3 L, BUN/Creatinine Ratio 10.8, Glucose 94, Calcium 8.7 01/06/24 04:45: WBC 13.7 H, RBC 3.22 L, Hgb 9.0 L, Hct 29.4 L, MCV 91.3, MCH 28.0, MCHC 30.6 L, RDW Std Deviation 52.6 H, RDW Coeff of Magdalene 15.9 H, Plt Count 326, MPV 10.3, Immature Gran % (Auto) 0.900, Neut % (Auto) 86.6 H, Lymph % (Auto) 5.2 L, [place] % (Auto) 4.8, Eos % (Auto) 2.1, Baso % (Auto) 0.4, Absolute Neuts (auto) 11.8 H, Absolute Lymphs (auto) 0.71 L, Nucleated RBC % 0, Sodium 143, Potassium 5.4 H, Chloride 116 H, Carbon Dioxide 12.0 L, Anion Gap 15, BUN 135 H*, Creatinine 11.40 H*, Estim Creat Clear Calc 3.72, Est GFR (MDRD) Af Amer 4 L, Est GFR (MDRD) Non-Af 3 L, BUN/Creatinine Ratio 11.8, Glucose 107 H, Calcium 8.9 Micro: Microbiology 01/03/24 03:00 Stool Stool Occult Blood (MASON) - Final Occult Blood Positive Radiography Diagnostic Testing: Radiology Impression Chest X-Ray 01/05/24 15:05 IMPRESSION: Progressive pleural parenchymal changes at the left lung base. Stable increased markings at the lung apices. A right-sided double-lumen catheter has been placed with the tip at the junction of the superior vena cava and right atrium. Electronically Signed: Willam Del Angel MD at 15:30 EDT ,
[2024-01-06] MEDS: 0.9% Normal Saline 1,000 ML IV.SOLN. 1000 ML OPERA.SITE (07:45)
[2024-01-06] MEDS: 0.9% Saline Lock 10 ML Syringe IV ×3 (07:46→10:09)
[2024-01-06] MEDS: PureFlow B 2K Dialysis Soln 1 BAG 6 BAG PF (07:46)
[2024-01-06] MEDS: Sodium Bicarbonate 8.4% 50 ML Syringe 100 MEQ IV (08:28)
[2024-01-06] MEDS: Heparin 10,000 UNITS/10 ML Vial IV (09:28)
--- NOTE | 2024-01-06 09:40 | PCM.PN.HOSP ---
Reason for Visit Reason for Visit: Generalized weakness/decreased oral intake Subjective Subjective Transferred to the ICU because her pressures remained low. Never required pressors. Started dialysis this morning. Patient with some confusion like related to acidosis and uremia. No complaints at this time. Objective Data Objective Data Vital Signs: Vital Signs Temp Pulse Resp BP Pulse Ox O2 Del Method O2 Flow Rate 97 F L 67 15 124/38 H 93 Nasal Cannula 4 01/06/24 05:46 01/06/24 09:15 01/06/24 09:15 01/06/24 09:15 01/06/24 09:15 01/06/24 09:15 01/06/24 09:15 Oxygen Flow Rate (L/min) 4 Oxygen Delivery Method Nasal Cannula Weight: 65.8 kg Body Mass Index (BMI) 24.1 Intake & Output: Intake and Output for Last 24 Hours 01/04/24 01/05/24 01/06/24 23:59 23:59 23:59 Intake Total 2246.67 / 2246.67 2109 Balance 2246.67 / 2246.67 2109 Medical Nutrition Assessment Dietitian: Malnutrition Criteria Met Start: 01/03/24 11:50 Freq: Status: Active Protocol: Document 01/03/24 11:50 AG (Rec: 01/03/24 11:50 AG [id number]) Nutrition Malnutrition Evidence of Malnutrition Exists Yes Malnutrition (severe): Chronic Evidenced By Suboptimal Energy Intake ( Severe),Weight Loss (Severe) Clinical Problem Chronic Disease or Condition Related Malnutrition Etiology severe malnutrition related to inadequate energy intake Signs/Symptoms as evidenced by unintentional 12% wt loss < 6 months, 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 needs > 1 month Status Active Problem Recommendation Dietitian Recommendations/Changes If not started on dialysis and renal function remains impaired, recommend renal- protein restricted diet; if pt to start dialysis, recommend renal-general diet; will monitor PO intake as established and add ONS as indicated Lab / Micro Data 01/06/24 04:45 01/06/24 04:45 Labs: Laboratory Results - last 24 hr 01/04/24 04:18: Double Strand DNA Ab <1, Complement C4 19 01/06/24 04:45: WBC 13.7 H, RBC 3.22 L, Hgb 9.0 L, Hct 29.4 L, MCV 91.3, MCH 28.0, MCHC 30.6 L, RDW Std Deviation 52.6 H, RDW Coeff of Magdalene 15.9 H, Plt Count 326, MPV 10.3, Immature Gran % (Auto) 0.900, Neut % (Auto) 86.6 H, Lymph % (Auto) 5.2 L, [place] % (Auto) 4.8, Eos % (Auto) 2.1, Baso % (Auto) 0.4, Absolute Neuts (auto) 11.8 H, Absolute Lymphs (auto) 0.71 L, Nucleated RBC % 0, Sodium 143, Potassium 5.4 H, Chloride 116 H, Carbon Dioxide 12.0 L, Anion Gap 15, BUN 135 H*, Creatinine 11.40 H*, Estim Creat Clear Calc 3.72, Est GFR (MDRD) Af Amer 4 L, Est GFR (MDRD) Non-Af 3 L, BUN/Creatinine Ratio 11.8, Glucose 107 H, Calcium 8.9 Micro: Microbiology 01/03/24 03:00 Stool Stool Occult Blood (MASON) - Final Occult Blood Positive Radiography Diagnostic Testing: Radiology Impression Chest X-Ray 01/05/24 15:05 IMPRESSION: Progressive pleural parenchymal changes at the left lung base. Stable increased markings at the lung apices. A right-sided double-lumen catheter has been placed with the tip at the junction of the superior vena cava and right atrium. Electronically Signed: Willam Del Angel MD at 15:30 EDT Reading Location ID and State: [facility] / [place] , Service support , Physical Exam Const alert, no apparent distress and average body habitus; Negative for healthy appearing or well nourished Constitutional Narrative: Older, white female, sitting up in bed, currently on dialysis, confused, appears ill but not toxic HEENT head/scalp atraumatic and moist oral mucous membranes HEENT Narrative: Mallampati 2, no thrush Head and Scalp: normocephalic Eyes PERRL and EOMs intact bilaterally Eyes Narrative: Conjunctiva are pale bilaterally, no scleral icterus Neck no lymphadenopathy and supple Neck Narrative: Trachea midline, no thyroid enlargement Resp normal respiratory effort, no retractions and no use of accessory muscles Resp Narrative: Crackles in bases bilaterally Auscultation: crackles; Negative for rales, rhonchi or wheezes Cardio regular rate, S1 normal heart sound, S2 normal heart sound, no murmurs, no rub, no gallops and no clicks Cardio Narrative: Rate is currently normal but rhythm is irregularly irregular GI normal to inspection, nondistended, normoactive bowel sounds, soft to palpation and non-tender Extremity no clubbing, cyanosis or edema Extremity Narrative: Pedal pulses and radial pulses are 2+, no cyanosis or clubbing, trace bilateral lower extremity edema Skin skin turgor normal, no jaundice, no petechiae and no mottling Skin Narrative: Pale, dialysis catheter right upper chest dressing appears clean dry and intact Neuro moves all extremities and no focal motor deficits Neuro Narrative: Significant generalized weakness noted but no focal deficits identified Sensorium / Orientation: awake, alert, oriented to person and oriented to place Speech: speech normal Psych Psych Narrative: Affect is flat today and patient appears sleepy Assessment & Plan Assessment/Plan (1) GRACE (acute kidney injury): (2) Anemia: (3) SVT (supraventricular tachycardia): (4) Hyperkalemia: (5) Metabolic acidosis: (6) Hypotension: PLAN: Plan GRACE -Baseline is unknown -Remains oliguric -Most of the immunological workup is still pending however double-stranded DNA was negative and C4 was 19 -Renal biopsy performed on 01/05/2024 and results are pending -Tunneled dialysis catheter in place and dialysis started today -Nephrology following-appreciate input Hypoxia -Patient on 4 L at this time -Likely related to volume overload with poor renal function and very little urine output -Dialysis for fluid removal as well as for toxin removal -Will wean oxygen as able next-Will need ambulatory pulse ox prior to discharge Hypotension -Resolved -Likely related to sedation given for procedures yesterday and poor renal clearance next-patient did not ever require pressors Hyperkalemia -Mild but persistent with renal dysfunction and acidosis -Potassium today is 5.4 -Repeat lab is pending after dialysis -Will also repeat lab in a.m. Nonanion gap metabolic acidosis secondary to renal dysfunction -Serum bicarb remains at 12 -2 A of bicarb given yesterday and 2 this morning -Repeat BMP is pending and if bicarb is still low after dialysis will likely need bicarb drip -Contributing to her metabolic and toxic encephalopathy -Should should resolve with continued dialysis Toxic/metabolic encephalopathy -Likely related to uremia and acidosis -Should improve once we can correct these with dialysis Atrial fibrillation -this appears to be chronic -Per patient this has been an ongoing issue since she was 13 or 15 -Hold Coreg and reinitiate once blood pressure improves -Continue to monitor on telemetry -Will start anticoagulation as patient allows once appropriate from a medical standpoint Anemia -Likely related to ischemic colitis noted on colonoscopy -Unable to check iron studies that she was transfused 1 unit of packed red blood cells on 01/03/2024 -Hemoglobin today is stable at 9.0 and should trend up with volume removal -EGD done 01/04/2024 with no identified source of bleeding -colonoscopy done on 01/05/2024 and showed diverticulosis in the rectosigmoid colon and sigmoid colon, localized moderate inflammation in the rectosigmoid colon, sigmoid colon and descending colon consistent with ischemic colitis, biopsies were taken and pending -Will start anticoagulation once okay with gastroenterology Esophagitis -Continue Protonix 40 mg daily Hypertension -Hypotension after procedures on 01/05/2024 -Hold Coreg -Will restart Coreg when hemodynamics improve -As needed hydralazine for systolic blood pressure greater than 160 Debility/generalized weakness -PT/OT is following -patient would strongly prefer to go home if possible -Hopefully she will continue to improve once we start dialysis DVT prophylaxis -Chemoprophylaxis contraindicated will start DOAC as soon as okay with gastroenterology -Continue SCDs CODE STATUS -DNR CCA with no intubation per discussion on admission Charges/Coding Visit Charges Inpatient E&M: 95358 [facility] Hosp L3
[2024-01-06] MEDS: Acetaminophen 325 MG Tablet 650 MG PO (10:08)
[2024-01-06] MEDS: Ascorbic Acid 500 MG Tablet 250 MG PO (10:09)
[2024-01-06] MEDS: Pantoprazole Sodium 40 MG Tablet PO (10:09)
[2024-01-06 10:14] LABS: Phosphorus 5.9 mg/dL (2.5-4.9)
[2024-01-06 10:26] LABS: Anion Gap 12 (5-15); BUN 84 mg/dL (7-18); BUN/Creat Ratio 11.4 RATIO (10-20); Calcium,Total 8.7 mg/dL (8.5-10.1); Chloride 111 mmol/L (98-107); Creatinine, Serum 7.34 mg/dL (0.55-1.02); EST Glomerular Filtration Rate 6 mL/min (>60); Est Glom Filt Rate - Afr Amer 7 mL/min (>60); Estimated Creatinine Clearance 5.78 ml/min; Glucose 99 mg/dL (74-106); Magnesium 2.3 mg/dL (1.6-2.6); Potassium 4.2 mmol/L (3.5-5.1); Sodium Level 143 mmol/L (136-145)
[2024-01-06 10:33] LABS: Hepatitis B Surface Antigen Non-Reactive (Nonreactive)
--- NOTE | 2024-01-06 11:10 | PCM.PN.REN ---
Subjective Subjective This morning she is alert, awake. Blood pressure is acceptable. Labs improved after dialysis. Biopsy results pending. Eating breakfast this morning. Objective Data Objective Data Vital Signs: Vital Signs Temp Pulse Resp BP Pulse Ox O2 Del Method O2 Flow Rate 98.5 F 78 20 H 119/57 L 99 Nasal Cannula 4 01/06/24 10:00 01/06/24 11:00 01/06/24 11:00 01/06/24 11:00 01/06/24 11:00 01/06/24 11:00 01/06/24 11:00 Oxygen Flow Rate (L/min) 4 Oxygen Delivery Method Nasal Cannula Weight: 65.8 kg Body Mass Index (BMI) 24.1 Intake & Output: Intake and Output for Last 24 Hours 01/04/24 01/05/24 01/06/24 23:59 23:59 23:59 Intake Total 2246.67 / 2246.67 2109 / 2109 348.75 / 348.75 Output Total 0 / 0 Balance 2246.67 / 2246.67 2109 348.75 / 348.75 Medical Nutrition Assessment Dietitian: Malnutrition Criteria Met Start: 01/03/24 11:50 Freq: Status: Active Protocol: Document 01/03/24 11:50 AG (Rec: 01/03/24 11:50 AG [id number]) Nutrition Malnutrition Evidence of Malnutrition Exists Yes Malnutrition (severe): Chronic Evidenced By Suboptimal Energy Intake ( Severe),Weight Loss (Severe) Clinical Problem Chronic Disease or Condition Related Malnutrition Etiology severe malnutrition related to inadequate energy intake Signs/Symptoms as evidenced by unintentional 12% wt loss < 6 months, 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 needs > 1 month Status Active Problem Recommendation Dietitian Recommendations/Changes If not started on dialysis and renal function remains impaired, recommend renal- protein restricted diet; if pt to start dialysis, recommend renal-general diet; will monitor PO intake as established and add ONS as indicated Lab / Micro Data 01/06/24 04:45 01/06/24 09:45 Labs: Laboratory Results - last 24 hr 01/04/24 04:18: Double Strand DNA Ab <1 01/06/24 04:45: WBC 13.7 H, RBC 3.22 L, Hgb 9.0 L, Hct 29.4 L, MCV 91.3, MCH 28.0, MCHC 30.6 L, RDW Std Deviation 52.6 H, RDW Coeff of Magdalene 15.9 H, Plt Count 326, MPV 10.3, Immature Gran % (Auto) 0.900, Neut % (Auto) 86.6 H, Lymph % (Auto) 5.2 L, [place] % (Auto) 4.8, Eos % (Auto) 2.1, Baso % (Auto) 0.4, Absolute Neuts (auto) 11.8 H, Absolute Lymphs (auto) 0.71 L, Nucleated RBC % 0, Sodium 143, Potassium 5.4 H, Chloride 116 H, Carbon Dioxide 12.0 L, Anion Gap 15, BUN 135 H*, Creatinine 11.40 H*, Estim Creat Clear Calc 3.72, Est GFR (MDRD) Af Amer 4 L, Est GFR (MDRD) Non-Af 3 L, BUN/Creatinine Ratio 11.8, Glucose 107 H, Calcium 8.9 01/06/24 08:00: Hep Bs Antigen Non-Reactive 01/06/24 09:45: Sodium 143, Potassium 4.2, Chloride 111 H, Carbon Dioxide 20.0 L, Anion Gap 12, BUN 84 H, Creatinine 7.34 H, Estim Creat Clear Calc 5.78, Est GFR (MDRD) Af Amer 7 L, Est GFR (MDRD) Non-Af 6 L, BUN/Creatinine Ratio 11.4, Glucose 99, Calcium 8.7, Phosphorus 5.9 H, Magnesium 2.3 Micro: Microbiology 01/03/24 03:00 Stool Stool Occult Blood (MASON) - Final Occult Blood Positive Radiography Diagnostic Testing: Radiology Impression Chest X-Ray 01/05/24 15:05 IMPRESSION: Progressive pleural parenchymal changes at the left lung base. Stable increased markings at the lung apices. A right-sided double-lumen catheter has been placed with the tip at the junction of the superior vena cava and right atrium. Electronically Signed: Willam Del Angel MD at 15:30 EDT , Physical Exam Narrative Alert awake oriented x 3 no obvious distress no pallor no icterus no JVD s1s2 no murmurs lungs clear abdomen soft no organomegaly no edema no cyanosis Assessment & Plan Assessment/Plan (1) GRACE (acute kidney injury): PLAN: Came in with a creatinine of 11. No improvement with IV fluids. Renal ultrasound with normal-sized kidneys. Urine analysis pending. Serologies mostly pending. Results that are back are negative. Serum protein electrophoresis pending. Kidney biopsy done yesterday. Patient did have a prelim read later today or tomorrow. Further prognosis depending on kidney biopsy findings. Called and spoke with pathology at [facility]. Acidosis. Should improve with dialysis. Overnight she has required couple of amps of sodium bicarbonate.
--- NOTE | 2024-01-06 12:22 | PN.SURG_ITS ---
Subjective Subjective Patient seen and examined during AM rounds. She denies any acute events overnight. She shares that she is thirsty and wants to be allowed to drink. She denies any significant pain from her catheter site. Objective Data Objective Data Vital Signs: Vital Signs Temp Pulse Resp BP Pulse Ox O2 Del Method O2 Flow Rate 98.5 F 78 20 H 119/57 L 99 Nasal Cannula 4 01/06/24 10:00 01/06/24 11:00 01/06/24 11:00 01/06/24 11:00 01/06/24 11:00 01/06/24 11:00 01/06/24 11:00 Oxygen Flow Rate (L/min) 4 Oxygen Delivery Method Nasal Cannula Weight: 145 lb 1.027 oz Body Mass Index (BMI) 24.1 Intake & Output: Intake and Output for Last 24 Hours 01/04/24 01/05/24 01/06/24 23:59 23:59 23:59 Intake Total 2246.67 / 2246.67 211 / 0 348.75 / 348.75 Output Total 0 / 0 Balance 2246.67 / 2246.67 2109 348.75 / 348.75 Medical Nutrition Assessment Dietitian: Malnutrition Criteria Met Start: 01/03/24 11:5 0 Freq: Status: Active Protocol: Document 01/03/24 11:50 AG (Rec: 01/03/24 11:50 AG [id number]) Nutrition Malnutrition Evidence of Malnutrition Exists Yes Malnutrition (severe): Chronic Evidenced By Suboptimal Energy Intake ( Severe),Weight Loss (Severe) Clinical Problem Chronic Disease or Condition Related Malnutrition Etiology severe malnutrition related to inadequate energy intake Signs/Symptoms as evidenced by unintentional 12% wt loss < 6 months, 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 needs > 1 month Status Active Problem Recommendation Dietitian Recommendations/Changes If not started on dialysis and renal function remains impaired, recommend renal- protein restricted diet; if pt to start dialysis, recommend renal-general diet; will monitor PO intake as established and add ONS as indicated Lab / Micro Data 01/06/24 04:45 01/06/24 09:45 Labs: Laboratory Results - last 24 hr 01/04/24 04:18: Double Strand DNA Ab <1 01/06/24 04:45: WBC 13.7 H, RBC 3.22 L, Hgb 9.0 L, Hct 29.4 L, MCV 91.3, MCH 28.0, MCHC 30.6 L, RDW Std Deviation 52.6 H, RDW Coeff of Magdalene 15.9 H, Plt Count 326, MPV 10.3, Immature Gran % (Auto) 0.900, Neut % (Auto) 86.6 H, Lymph % (Auto) 5.2 L, Patrick % (Auto) 4.8, Eos % (Auto) 2.1, Baso % (Auto) 0.4, Absolute Neuts (auto) 11.8 H, Absolute Lymphs (auto) 0.71 L, Nucleated RBC % 0, Sodium 143, Potassium 5.4 H, Chloride 116 H, Carbon Dioxide 12.0 L, Anion Gap 15, BUN 135 H*, Creatinine 11.40 H*, Estim Creat Clear Calc 3.72, Est GFR (MDRD) Af Amer 4 L, Est GFR (MDRD) Non-Af 3 L, BUN/Creatinine Ratio 11.8, Glucose 107 H, Calcium 8.9 01/06/24 08:00: Hep Bs Antigen Non-Reactive 01/06/24 09:45: Sodium 143, Potassium 4.2, Chloride 111 H, Carbon Dioxide 20.0 L , Anion Gap 12, BUN 84 H, Creatinine 7.34 H, Estim Creat Clear Calc 5.78, Est GFR (MDRD) Af Amer 7 L, Est GFR (MDRD) Non-Af 6 L, BUN/Creatinine Ratio 11.4, Glucose 99, Calcium 8.7, Phosphorus 5.9 H, Magnesium 2.3 Micro: Microbiology 01/03/24 03:00 Stool Stool Occult Blood (MASON) - Final Occult Blood Positive Radiography Diagnostic Testing: Radiology Impression Chest X-Ray 01/05/24 15:05 IMPRESSION: Progressive pleural parenchymal changes at the left lung base. Stable increased markings at the lung apices. A right-sided double-lumen catheter has been placed with the tip at the junction of the superior vena cava and right atrium. Electronically Signed: Willam Del Angel MD at 15:30 EDT , Physical Exam Const oriented x3 and no apparent distress Chest Chest Narrative: Right lower neck upper chest catheter is appropriately positioned and dressed. There is no signs of subcutaneous hematoma. The lumens appear locked still with heparinized saline. Resp normal respiratory effort Assessment & Plan Assessment/Plan (1) S/P dialysis catheter insertion: PLAN: Patient is postoperative day 1 from right tunneled hemodialysis catheter insertion. The catheter is appropriately dressed and there are no signs of hematoma on exam today. Moreover, dialysis nursing confirms that the catheter function well during patient's first dialysis today. Upon making these observations surgery will sign off but remain available for any concerns. Thank you for the opportunity to participate in Mrs. Agustin's care. Michael Ashton MD General Surgery Endocrine Surgery Pager: [facility] [address] [place] [address], [address] [place] [address] Office: [phone] Charges/Coding Visit Charges Inpatient E&M: 94079 Subs Hosp L2
--- NOTE | 2024-01-06 13:15 | CT_ITS ---
STUDY: CTA HEAD AND NECK WITH CONTRAST REASON FOR EXAM: Female, 78 years old. Confusion RADIATION DOSAGE (If Supplied By Facility): CTDIvol = ( 25.87 ) mGy, DLP = ( 1663.72 ) mGycm TECHNIQUE: CT angiography was performed with a multi-detector CT scanner. Data acquisition was obtained from the skull base through the vertex following intravenous administration of IV 100mL Isovue-370. MIP images were reconstructed from the axial data set. Post-processing of the angiographic images was performed, with multiplanar reformation and 3D reconstruction. Individualized dose optimization techniques were used for this CT. COMPARISON: Comparison is made with prior CT scan of the brain dated January 02, 2024. FINDINGS: Normal bilateral petrous carotid arteries. There is calcified plaque formation of the right cavernous carotid artery, without a cross-sectional luminal stenosis. There is calcified plaque formation of the left cavernous carotid artery, without a cross-sectional luminal stenosis. Normal right A1 segments of the anterior cerebral artery. Normal left A1 segments of the anterior cerebral artery. Normal intact anterior communicating artery (ACOM). Normal bilateral A2 segments of the anterior cerebral arteries. Normal right M1 and M2 segments of the middle cerebral arteries, with a normal M1 bifurcation. Normal left M1 and M2 segments of the middle cerebral arteries, with a normal M1 bifurcation. Normal right posterior communicating artery (PCOM). Normal left posterior communicating artery (PCOM). Normal bilateral vertebral arteries. Normal basilar artery with a normal basilar bifurcation. The visualized bilateral superior cerebellar (SCA) arteries are normal. Normal bilateral P1, P2 and visualized P3 segments of the posterior cerebral arteries. There is no demonstrated aneurysm of the [place]. There is evidence of a cerebral atrophy as well as subcortical white matter areas of decreased attenuation in keeping with chronic white matter ischemic changes. Given septum pellucidum is once again seen. This a normal variant. Bilateral pleural effusions right greater than left with bibasilar atelectasis and/or infiltrates. Limited visualization of the upper lobes demonstrates multiple masses suggestive of metastatic disease. AORTIC ARCH: Normal visualized aortic arch. Normal origins of the brachiocephalic, left common carotid, and left subclavian arteries. RIGHT CAROTID ARTERIES: Normal right common carotid artery (CCA). Normal right common carotid bulb. There is mild atherosclerotic plaque formation of the origin of the right internal carotid artery with less than 50% cross sectional diameter stenosis. Normal visualized cervical portion of the right internal carotid artery. Normal origin of the right external carotid artery (ECA). LEFT CAROTID ARTERIES: Normal left common carotid artery (CCA). Normal left common carotid bulb. There is mild atherosclerotic plaque formation of the origin of the left internal carotid artery with less than 50% cross sectional diameter stenosis. Normal visualized cervical portion of the left internal carotid artery. Normal origin of the left external carotid artery (ECA). VERTEBRAL ARTERIES: Normal bilateral vertebral arteries. CT/CTA Head AND Neck W/ Contrast IMPRESSION: Minimal plaque formation at the origin of the right and left internal carotid arteries without significant stenosis. Bilateral pleural effusions with findings suggestive of masses in the upper lobes. Correlation with a CT scan of the thorax is recommended if clinically indicated. Electronically Signed: Willam Del Angel MD at 14:33 EDT ,
--- NOTE | 2024-01-06 13:17 | PN.HOSP_ITS ---
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 She also was a bit more confused. Stat ABG is pending. Will get a CT of her brain as well is a CTA of her head and neck. I would be concerned about vasculitis related neurological changes. May need to get neurology involved depending on results
--- NOTE | 2024-01-06 13:26 | PCM.PN.BLA ---
Assessment & Plan Assessment/Plan (1) Renal azotemia: PLAN: Plan received call from pathology. IF available. crescentic GN. pauci immune. EM pending. 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 serologies pending. will start solumedrol for now. final report should be available tomorrow.
[2024-01-06 13:30] LABS: Allen Test Positive; Base Excess -12 mmol/L (-2 to +2); Bicarbonate 14.4 mmol/L (22-26); Blood Gas Specimen Type ART; Mode Not entered; O2 Delivery Device Cannula; PO2 98 mmHG (75-100); SITE R Radial; SO2 97 % (95-99); Total Carbon Dioxide 15 mmol/L; pCO2 27.8 mmHg (35-45); pH 7.32 (7.35-7.45)
[2024-01-06] MEDS: MethylPREDNISolone 1,000 MG in 0.9% Normal Saline (100mL Bag) 100 ML 100 MG IV (14:32)
[2024-01-06 15:09] LABS: Complement C3 140 mg/dL (82-167); Cytoplasmic Ab (C-ANCA) >1:640 titer (Neg:<1:20); Immunofixation Result, Serum Comment: (.); Immunoglobulin A 183 mg/dL (64-422); Immunoglobulin G 1003 mg/dL (586-1602); Immunoglobulin M 49 mg/dL (26-217); Perinuclear Ab (P-ANCA) <1:20 titer (Neg:<1:20)
--- NOTE | 2024-01-06 15:55 | CT_ITS ---
INDICATION: Pleural effusions EXAMINATION: CT CHEST WITHOUT CONTRAST - CT Chest W/O Contrast Injection TECHNIQUE: Helically acquired images were obtained of the chest. A radiation dose optimization technique was used for this scan. IV Contrast dosage and agent: None. RADIATION DOSAGE (If Supplied By Facility): CTDIvol = ( 11.87 ) mGy, DLP = ( 412.20 ) mGycm COMPARISON: FINDINGS: LUNGS, PLEURA AND LARGE AIRWAYS: Bilateral pleural effusions with basilar consolidation/atelectasis. Bilateral apical masses with the left one being cavitary. The left apical mass measures 3.4 x 4 x 4.8 cm and the right mass measures 6.4 x 2.8 x 5.2 cm. Right upper lobe 3 mm nodule. There is a right upper lobe 1.2 cm nodule along the minor fissure. Irregular 2 x 0.8 cm mass lesion along the superior edge of the left major fissure. 8 mm left lower lobe peripheral nodule. 5 mm right lower lobe nodule. No pneumothorax. THYROID: No thyroid lesions. HEART AND PERICARDIUM: Heart size is normal. No pericardial effusion. CORONARY ARTERIES: Coronary artery calcification VESSELS: Thoracic aorta is not dilated. MEDIASTINUM AND BRIAN: No mediastinal or hilar adenopathy. Esophagus is unremarkable. No hiatal hernia. UPPER ABDOMEN: 1 cm hypoattenuated hepatic nodule. BONES: No suspicious lytic or blastic abnormality. CT/Chest without Contrast IMPRESSION: Moderate bilateral pleural effusions with basilar consolidations/atelectasis. Bilateral apical mass lesions. Multiple pulmonary nodules bilaterally as noted.. Malignancy is suspected. Electronically Signed: Justin Diana DO at 17:00 EDT ,
--- NOTE | 2024-01-06 16:52 | PN.GI_ITS ---
Subjective Subjective Patient underwent colonoscopy yesterday. She was discovered to have mild ischemic colitis. No other gross abnormalities were seen except for extensive diverticular disease. Objective Data Objective Data Vital Signs: Vital Signs Temp Pulse Resp BP Pulse Ox O2 Del Method O2 Flow Rate 97.4 F L 68 16 133/70 H 96 Nasal Cannula 3 01/06/24 16:00 01/06/24 16:00 01/06/24 16:00 01/06/24 16:00 01/06/24 16:00 01/06/24 16:00 01/06/24 16:00 Oxygen Flow Rate (L/min) 3 Oxygen Delivery Method Nasal Cannula Weight: 145 lb 1.027 oz Body Mass Index (BMI) 24.1 Intake & Output: Intake and Output for Last 24 Hours 01/04/24 01/05/24 01/06/24 23:59 23:59 23:59 Intake Total 2246.67 / 2246.67 2109 / 0 704.75 / 704.75 Output Total 0 / 0 Balance 2246.67 / 2246.67 2109 704.75 / 704.75 Medical Nutrition Assessment Dietitian: Malnutrition Criteria Met Start: 01/03/24 11:50 Freq: Status: Active Protocol: Document 01/03/24 11:50 AG (Rec: 01/03/24 11:50 AG [id number]) Nutrition Malnutrition Evidence of Malnutrition Exists Yes Malnutrition (severe): Chronic Evidenced By Suboptimal Energy Intake ( Severe),Weight Loss (Severe) Clinical Problem Chronic Disease or Condition Related Malnutrition Etiology severe malnutrition related to inadequate energy intake Signs/Symptoms as evidenced by unintentional 12% wt loss < 6 months, 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 needs > 1 month Status Active Problem Recommendation Dietitian Recommendations/Changes If not started on dialysis and renal function remains impaired, recommend renal- protein restricted diet; if pt to start dialysis, recommend renal-general diet; will monitor PO intake as established and add ONS as indicated Lab / Micro Data 01/06/24 04:45 01/06/24 09:45 Labs: Laboratory Results - last 24 hr 01/04/24 04:18: IgG 1003, IgA 183, IgM 49, Serum Immunofixation Comment:, c-ANCA Antibody >1:640 H, Atypical p-ANCA <1:20, p-ANCA Antibody <1:20, Complement C3 140 01/06/24 04:45: WBC 13.7 H, RBC 3.22 L, Hgb 9.0 L, Hct 29.4 L, MCV 91.3, MCH 28.0, MCHC 30.6 L, RDW Std Deviation 52.6 H, RDW Coeff of Magdalene 15.9 H, Plt Count 326, MPV 10.3, Immature Gran % (Auto) 0.900, Neut % (Auto) 86.6 H, Lymph % (Auto) 5.2 L, [place] % (Auto) 4.8, Eos % (Auto) 2.1, Baso % (Auto) 0.4, Absolute Neuts (auto) 11.8 H, Absolute Lymphs (auto) 0.71 L, Nucleated RBC % 0, Sodium 143, Potassium 5.4 H, Chloride 116 H, Carbon Dioxide 12.0 L, Anion Gap 15, BUN 135 H*, Creatinine 11.40 H*, Estim Creat Clear Calc 3.72, Est GFR (MDRD) Af Amer 4 L, Est GFR (MDRD) Non-Af 3 L, BUN/Creatinine Ratio 11.8, Glucose 107 H, Calcium 8.9 01/06/24 08:00: Hep Bs Antigen Non-Reactive 01/06/24 09:45: Sodium 143, Potassium 4.2, Chloride 111 H, Carbon Dioxide 20.0 L , Anion Gap 12, BUN 84 H, Creatinine 7.34 H, Estim Creat Clear Calc 5.78, Est GFR (MDRD) Af Amer 7 L, Est GFR (MDRD) Non-Af 6 L, BUN/Creatinine Ratio 11.4, Glucose 99, Calcium 8.7, Phosphorus 5.9 H, Magnesium 2.3 Micro: Microbiology 01/03/24 03:00 Stool Stool Occult Blood (MASON) - Final Occult Blood Positive ABG Data ABG results: ABG 01/06/24 13:27 Specimen Type ART Sample Site R Radial pH 7.32 L Bicarbonate Actual 14.4 L Total CO2 15 Base Excess -12 L O2 Saturation 97 O2 % 3.0 ABG pCO2 27.8 L ABG pO2 98 Darion Test Positive O2 Delivery Device Cannula Vent Mode Not entered Radiography Diagnostic Testing: Radiology Impression Chest X-Ray 01/05/24 15:05 IMPRESSION: Progressive pleural parenchymal changes at the left lung base. Stable increased markings at the lung apices. A right-sided double-lumen catheter has been placed with the tip at the junction of the superior vena cava and right atrium. Electronically Signed: Willam Del Angel MD at 15:30 EDT , Head/Neck CTA 01/06/24 13:15 IMPRESSION: Minimal plaque formation at the origin of the right and left internal carotid arteries without significant stenosis. Bilateral pleural effusions with findings suggestive of masses in the upper lobes. Correlation with a CT scan of the thorax is recommended if clinically indicated. Electronically Signed: Willam Del Angel MD at 14:33 EDT , Physical Exam Const alert, no apparent distress and average body habitus; Negative for healthy appearing or well nourished HEENT head/scalp atraumatic and moist oral mucous membranes HEENT Narrative: Mallampati 2, no thrush Head and Scalp: normocephalic Eyes PERRL and EOMs intact bilaterally Eyes Narrative: Conjunctiva are pale bilaterally, no scleral icterus Neck no lymphadenopathy and supple Neck Narrative: Trachea midline, no thyroid enlargement Resp normal respiratory effort, no retractions and no use of accessory muscles Resp Narrative: Crackles in bases bilaterally Auscultation: crackles; Negative for rales, rhonchi or wheezes Cardio regular rate, S1 normal heart sound, S2 normal heart sound, no murmurs, no rub, no gallops and no clicks Cardio Narrative: Rate is currently normal but rhythm is irregularly irregular GI normal to inspection, nondistended, normoactive bowel sounds, soft to palpation and non-tender Extremity no clubbing, cyanosis or edema Extremity Narrative: Pedal pulses and radial pulses are 2+, no cyanosis or clubbing, trace bilateral lower extremity edema Skin skin turgor normal, no jaundice, no petechiae and no mottling Skin Narrative: Pale, dialysis catheter right upper chest dressing appears clean dry and intact Neuro moves all extremities and no focal motor deficits Neuro Narrative: Significant generalized weakness noted but no focal deficits identified Sensorium / Orientation: awake, alert, oriented to person and oriented to place Speech: speech normal Psych Psych Narrative: Affect is flat today and patient appears sleepy Assessment & Plan Assessment/Plan (1) GRACE (acute kidney injury): (2) SVT (supraventricular tachycardia): (3) Hyperkalemia: PLAN: Plan Patient is a 78-year-old lady admitted with progressive generalized weakness and decreased oral intake of 3 days duration. Patient was found to have renal fa ilure as well as severe anemia. Admitted to a monitored bed for further management 1. Renal failure ? With unknown chronicity. Patient has apparently not been evaluated by a physician for more than 12 years. Patient started on IV fluid with subsequent monitoring of electrolytes ordered as part of her management renal ultrasound was ordered with consultation placed to nephrology 2. Anemia ? Suspected to be anemia of chronic disorder. Iron studies as well as B12 levels ordered on admission patient hemoglobin did drop to 6.6 necessitating patient being transfused with 1 unit PRBC. Findings: Non-severe esophagitis with no bleeding was found 35 to 37 cm from the incisors. A moderate Schatzki ring was found at the gastroesophageal junction. A guidewire was placed and the scope was withdrawn. Dilation was performed with a Savary dilator with no resistance at 45 Fr. The dilation site was examined and showed moderate mucosal disruption. Estimated blood loss was minimal. A small hiatal hernia was present. Segmental moderate inflammation characterized by congestion (edema), erosions, erythema, friability and granularity was found in the gastric antrum. Biopsies were taken with a cold forceps for histology. Verification of patient identification for the specimen was done. Biopsies were taken with a cold forceps for Helicobacter pylori testing. Verification of patient identification for the specimen was done. Estimated blood loss was minimal. No gross lesions were noted in the duodenal bulb. Impression: - Non-severe non-erosive esophagitis with no bleeding. - Moderate Schatzki ring. Dilated. - Small hiatal hernia. - Bile gastritis. Biopsied. - No gross lesions in the duodenal bulb. Recommendation: - [facility]. - Full liquid diet. - Continue present medications. - Await pathology results. - There was no etiology of patient's acute blood loss anemia she will need a colonoscopy Findings: The perianal and digital rectal examinations were normal. Multiple small and large-mouthed diverticula were found in the recto-sigmoid colon and sigmoid colon. Localized moderate inflammation characterized by congestion (edema), erosions, erythema, friability and granularity was found in the recto-sigmoid colon, in the sigmoid colon and in the descending colon. Biopsies were taken with a cold forceps for histology. Verification of patient identification for the specimen was done. Estimated blood loss was minimal. Stool was found in the cecum. Impression: - Diverticulosis in the recto-sigmoid colon and in the sigmoid colon. - Localized moderate inflammation was found in the recto-sigmoid colon, in the sigmoid colon and in the descending colon secondary to ischemic colitis. Biopsied. - Stool in the cecum. Recommendation: - [facility] patient to [facility] for [facility] care. - Resume previous diet. - Continue present medications. - Await pathology results. - Repeat colonoscopy. I suspect the etiology of her blood loss anemia was secondary to anemia chronic disease, poor iron stores, low erythropoietin. Hopefully she will respond very well to dialysis. She will need a capsule endoscopy as an outpatient to make sure we looked at her entire GI tract. Charges/Coding Visit Charges Inpatient E&M: [id number] [facility] L[facility]
[2024-01-06 20:08] LABS: Anti-Glomerular Basement Memb < 0.2 units (0.0-0.9)
[2024-01-07] VITALS (55 sets, daily range): BP systolic 71–166; BP diastolic 42–120; PULSE 64–90; RESP 11–22; TEMP 36.3–36.7; O2SAT 90–99; BMI 24.5; BMI 24.3
[2024-01-07] MEDS: Acetaminophen 325 MG Tablet 650 MG PO (02:58)
--- NOTE | 2024-01-07 06:49 | EX.PCM.CONCC ---
Assessment & Plan Assessment/Plan (1) ANCA-associated vasculitis: PLAN: Plan RECOMMENDATIONS: 1. Supplemental oxygen, if needed, to maintain saturations at or above 90%. 2. Obtain percutaneous CT-guided lung biopsy. 3. Send RI-3 and MPO antibodies. 4. Continue high-dose steroids as ordered. Consider initiation of rituximab. 5. Obtain MRI brain and neurology consultation. 6. Transfuse blood products if hemoglobin is less than 7 g/dL. Continue PPI therapy. IMPRESSIONS: 1. Abnormal chest CT We were consulted to evaluate the patient for an abnormal chest CT which demonstrated biapical lung masses with internal cavitation and evidence of bilateral pulmonary nodules and pleural effusions. 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 The patient has a very remote smoking history. Accordingly, recommend percutaneous CT-guided lung biopsy of the right upper lobe lung mass. In the interim, we will send RI-3 and MPO antibodies. The patient has already been initiated on high-dose steroids and will likely need to be initiated on rituximab. Will await final pathology report from kidney biopsy. Continue current supportive measures along with supplemental oxygen to maintain saturations at or above 90%. 2. Acute kidney injury Nephrology is following with concern for underlying vasculitis. Plan to continue dialysis support per recommendations. The patient has been initiated on appropriate high-dose steroids. 3. Toxic/metabolic encephalopathy Clinical concern for underlying metabolic derangements in the setting of renal insufficiency. Continue supportive measures noted above. 4. Anemia/atrial fibrillation/hypertension/generalized debility and deconditioning Complicates care, management, recovery and prognosis. Continue PPI therapy. Continue to monitor blood counts and transfuse if hemoglobin drops below 7 g/dL. This note was generated with [employer] dictation software. It may contain incorrect words, spelling, and punctuation that were not noted in checking the note before signing. HPI Consult Data Date of Consult: 01/07/24 HPI Narrative Reason for Consultation: Abnormal chest CT HPI Narrative: The patient is a 78-year-old female, with a history as outlined below, who presented to the emergency department on January 01 with poor p.o. intake and generalized weakness. On presentation to the emergency department, the patient was documented to be afebrile hemodynamically stable. She was maintaining appropriate oxygen saturations on room air. Initial laboratory evaluation revealed a white blood cell count of 15,000. Hemoglobin was low at 7.6 g/dL. Chemistry profile was notable for a sodium of 135, potassium of 5.7, bicarbonate of 20, anion gap of 16, BUN of 123 and creatinine 11.3. The patient's hospital course has included admission for acute kidney injury and anemia. Nephrology and gastroenterology were subsequently consulted. The patient underwent EGD on January 03 which demonstrated nonsevere esophagitis with no bleeding. Colonoscopy revealed mild ischemic colitis. The patient was aggressively hydrated, with no improvement noted in renal function. She was subsequently placed on dialysis and underwent kidney biopsy. The preliminary pathology from the kidney biopsy demonstrated likely ANCA vasculitis. The patient was also noted to have a positive c-ANCA antibody titer at greater than 1:640. RI-3 and MPO antibodies are pending. The patient was initiated on high-dose steroids on January 05. CT chest completed on January 05 demonstrated bilateral pleural effusions with biapical lung masses with internal cavitation and several other pulmonary nodules bilaterally. Currently, the patient remains confused and is quite a poor historian. Her hemoglobin is down to 7.7 g/dL this morning. The patient is currently being dialyzed with MRI brain to be completed today along with neurology consultation. [facility] Medical History (Updated 01/07/24 @ 08:[address] Matthias Shine DO) Hyperkalemia Medical History no medical history Home Medications ascorbic acid (vitamin C) 250 mg tablet 250 mg PO DAILY 01/02/24 [History Last Taken Unknown] cholecalciferol (vitamin D3) 25 mcg (1,000 unit) capsule 25 mcg PO DAILY 01/02/24 [History Last Taken Unknown] cyanocobalamin (vitamin B-12) 1,000 mcg capsule 1,000 mcg PO DAILY 01/02/24 [History Last Taken Unknown] iron,carbonyl-vitamin C-FOS 1 tab PO DAILY 01/02/24 [History Last Taken Unknown] magnesium citrate 100 mg tablet 400 mg PO DAILY 01/02/24 [History Last Taken Unknown] multivitamin (Daily Multi-Vitamin tablet) 1 tab PO DAILY 01/02/24 [History Last Taken Unknown] Allergy/AdvReac Type Severity Reaction Status Date / Time No Known Allergies Allergy Verified 01/02/24 11:36 Social History Smoking Status: Former smoker ROS Review of Systems ROS Unobtainable: due to mental status Physical Exam Const alert and no apparent distress General Appearance: ill appearing HEENT normocephalic and head/scalp atraumatic Eyes PERRL, EOMs intact bilaterally and conjunctivae normal Neck supple General: trachea midline Chest inspection of chest normal Resp normal respiratory effort Auscultation: rales; Negative for rhonchi or wheezes Cardio S1 normal heart sound and S2 normal heart sound Rhythm: abnormal rhythm GI normal to inspection, nondistended, normoactive bowel sounds Extremity no clubbing, cyanosis or edema Skin no rashes or lesions noted Neuro Neuro Narrative: Confused and disoriented. Psych Mood & Affect: flat affect Medical Records Data Medical Nutrition Assessment Dietitian: Malnutrition Criteria Met Start: 01/03/24 11:50 Freq: Status: Active Protocol: Document 01/03/24 11:50 AG (Rec: 01/03/24 11:50 AG [id number]) Nutrition Malnutrition Evidence of Malnutrition Exists Yes Malnutrition (severe): Chronic Evidenced By Suboptimal Energy Intake ( Severe),Weight Loss (Severe) Clinical Problem Chronic Disease or Condition Related Malnutrition Etiology severe malnutrition related to inadequate energy intake Signs/Symptoms as evidenced by unintentional 12% wt loss < 6 months, 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 needs > 1 month Status Active Problem Recommendation Dietitian Recommendations/Changes If not started on dialysis and renal function remains impaired, recommend renal- protein restricted diet; if pt to start dialysis, recommend renal-general diet; will monitor PO intake as established and add ONS as indicated Lab / Micro Data 01/07/24 07:25 01/07/24 07:25 Labs: Laboratory Results - last 24 hr 01/04/24 04:18: IgG 1003, IgA 183, IgM 49, Serum Immunofixation Comment:, c-ANCA Antibody >1:640 H, Atypical p-ANCA <1:20, p-ANCA Antibody <1:20, Glomerular Base Memb Ab < 0.2, Complement C3 140 01/06/24 08:00: Hep Bs Antigen Non-Reactive 01/06/24 09:45: Sodium 143, Potassium 4.2, Chloride 111 H, Carbon Dioxide 20.0 L, Anion Gap 12, BUN 84 H, Creatinine 7.34 H, Estim Creat Clear Calc 5.78, Est GFR (MDRD) Af Amer 7 L, Est GFR (MDRD) Non-Af 6 L, BUN/Creatinine Ratio 11.4, Glucose 99, Calcium 8.7, Phosphorus 5.9 H, Magnesium 2.3 ABG Data ABG results: ABG 01/06/24 13:27 Specimen Type ART Sample Site R Radial pH 7.32 L Bicarbonate Actual 14.4 L Total CO2 15 Base Excess -12 L O2 Saturation 97 O2 % 3.0 ABG pCO2 27.8 L ABG pO2 98 Darion Test Positive O2 Delivery Device Cannula Vent Mode Not entered Imaging Radiology Impression Chest X-Ray 01/05/24 15:05 IMPRESSION: Progressive pleural parenchymal changes at the left lung base. Stable increased markings at the lung apices. A right-sided double-lumen catheter has been placed with the tip at the junction of the superior vena cava and right atrium. Electronically Signed: Willam Del Angel MD at 15:30 EDT , Head/Neck CTA 01/06/24 13:15 IMPRESSION: Minimal plaque formation at the origin of the right and left internal carotid arteries without significant stenosis. Bilateral pleural effusions with findings suggestive of masses in the upper lobes. Correlation with a CT scan of the thorax is recommended if clinically indicated. Electronically Signed: Willam Del Angel MD at 14:33 EDT , Chest CT 01/06/24 15:55 IMPRESSION: Moderate bilateral pleural effusions with basilar consolidations/atelectasis. Bilateral apical mass lesions. Multiple pulmonary nodules bilaterally as noted.. Malignancy is suspected. Electronically Signed: Justin Diana DO at 17:00 EDT , Charges/Coding Visit Charges Inpatient E&M: 69200 Init Hosp L3
[2024-01-07 07:59] LABS: Absolute Neutrophil Count 8.7 X10^3/uL (2.0-7.7); Basophil# 0.02 X10^3/uL; Basophil% 0.2 % (0-1); Hematocrit 25.1 % (37-47); Hemoglobin 7.7 g/dL (12.0-15.0); Lymphocyte % 9.2 % (19-41); Mean Corp Hgb Conc 30.7 g/dL (32-36); Mean Corpuscular Hgb 27.9 pg (27.0-32.0); Mean Corpuscular Volume 90.9 fL (81-99); Mean Platelet Vol. 10.8 fl (6.2-12.0); Monocyte# 0.11 X10^3/uL; Monocyte% 1.1 % (0-10); NRBC Flagged by Analyzer 0 % (0-5); Neutrophil % 88.5 % (47-70); Platelet Count 291 K/mm3 (150-450); RBC Distribution Width SD 52.2 fl (35.1-43.9); Red Blood Count 2.76 M/mm3 (4.2-5.4); White Blood Count 9.8 K/mm3 (4.4-11.0)
[2024-01-07] MEDS: 0.9% Normal Saline 1,000 ML IV.SOLN. 1000 ML OPERA.SITE (08:21)
[2024-01-07] MEDS: 0.9% Saline Lock 10 ML Syringe IV ×2 (08:22→10:25)
[2024-01-07] MEDS: PureFlow B 2K Dialysis Soln 1 BAG 6 BAG PF (08:22)
[2024-01-07 08:43] LABS: International Normalized Ratio 1.4; Partial Thromboplast Time 36.8 Seconds (24.1-36.2); Prothrombin Time (Protime)PT. 16.7 SECONDS (11.7-14.9)
[2024-01-07 08:48] LABS: ALB/GLOB Ratio 0.4 RATIO (0.9-2.4); AST(SGOT) 11 U/L (15-37); Alanine Aminotransfer ALT/SGPT < 6 U/L (13-56); Albumin, Serum 1.5 g/dL (3.2-5.0); Alkaline Phosphatase 92 U/L (45-117); Anion Gap 15 (5-15); BUN 109 mg/dL (7-18); BUN/Creat Ratio 11.3 RATIO (10-20); Calcium,Total 8.8 mg/dL (8.5-10.1); Chloride 111 mmol/L (98-107); Creatinine, Serum 9.65 mg/dL (0.55-1.02); EST Glomerular Filtration Rate 4 mL/min (>60); Est Glom Filt Rate - Afr Amer 5 mL/min (>60); Estimated Creatinine Clearance 4.39 ml/min; Globulin 3.9 g/dL (2.2-4.2); Glucose 140 mg/dL (74-106); Potassium 5.3 mmol/L (3.5-5.1); Protein, Total 5.4 g/dL (6.4-8.2); Sodium Level 141 mmol/L (136-145)
--- NOTE | 2024-01-07 09:49 | CASEMGMT ---
Insurance review for hospitals In-network with [facility] insurance if transfer is recommended is as follows:?[facility], [place], [facility], [facility], [facility], [facility]), [facility], and . Juanita Nguyen, Discharge Planning Asst.
--- NOTE | 2024-01-07 10:00 | MRI_ITS ---
STUDY: MRI BRAIN WITHOUT CONTRAST REASON FOR EXAM: Female, 78 years old. confusion TECHNIQUE: Standardized multiplanar fat and water weighted pulse sequences were obtained. COMPARISON: Head CT dated January 06, 2024 FINDINGS: There is mild cerebral atrophy with widening of the extra-axial spaces and ventricular dilatation. There are a limited number of small white matter hyperintensities, distributed throughout the deep white matter tracts of the cerebral hemispheres, consistent with mild chronic white matter ischemic changes. There is no evidence for recent intracranial ischemia or other cause of cytotoxic edema on diffusion weighted imaging (DWI). Normal T2* images of the brain without demonstrated susceptibility artifact. There is no demonstrated hemosiderin stain. Plaque-like configuration of the white matter hyperintensities can also be associated with demyelinating disease. Clinical correlation is recommended. Normal bilateral basal ganglia. Normal thalami. There is no extra-axial fluid accumulation. Normal flow voids within the major intracranial circulation suggesting patency by spin echo criteria. Normal sella turcica, pituitary gland, infundibular stalk, optic chiasm and hypothalamus. Normal tectal plate and pineal gland. Normal midbrain, merlin and medulla. Normal cerebellum. Normal basal cisterns. Normal bilateral temporal bones. Normal bilateral internal auditory canals. No demonstrated orbital abnormality, within the constraints of a routine brain study. Normal visualized paranasal sinuses. Normal calvarium and skull base. Normal visualized soft tissue structures. Normal visualized upper cervical spine. MRI/Brain without Contrast IMPRESSION: 1. Involutional and chronic ischemic changes of the brain, as described above. 2. Plaque-like configuration of the white matter hyperintensities can also be associated with demyelinating disease. Clinical correlation is recommended. 3. No demonstrated acute infarct or hemorrhage. Electronically Signed: Tomy Birmingham MD at 16:10 EDT ,
[2024-01-07] MEDS: Heparin 10,000 UNITS/10 ML Vial IV (10:26)
[2024-01-07] MEDS: Pantoprazole Sodium 40 MG Tablet PO (11:22)
[2024-01-07] MEDS: Ascorbic Acid 500 MG Tablet 250 MG PO (11:22)
[2024-01-07] MEDS: MethylPREDNISolone 1,000 MG in 0.9% Normal Saline (100mL Bag) 100 ML 100 MG IV (11:22)
--- NOTE | 2024-01-07 12:30 | PCM.PN.HOSP ---
Reason for Visit Reason for Visit: Weakness/decreased appetite Subjective Subjective Increased confusion late yesterday and remains today. Currently on dialysis. Able to tell me her name and birthdate and her present location but confused on time. Intermittently falls asleep during our conversation. No complaints from the patient at this time. Objective Data Objective Data Vital Signs: Vital Signs Temp Pulse Resp BP Pulse Ox O2 Del Method O2 Flow Rate 97.5 F L 80 22 H 126/42 H 96 Nasal Cannula 3 01/07/24 06:00 01/07/24 11:00 01/07/24 11:00 01/07/24 11:00 01/07/24 11:00 01/07/24 11:00 01/07/24 11:00 FiO2 3 01/07/24 07:00 Oxygen Flow Rate (L/min) 3 Oxygen Delivery Method Nasal Cannula Weight: 66.2 kg Body Mass Index (BMI) 24.3 Intake & Output: Intake and Output for Last 24 Hours 01/05/24 01/06/24 01/07/24 23:59 23:59 23:59 Intake Total 2109 804.75 / 804.75 200 / 200 Output Total 0 / 0 750 / 750 Balance 2109 804.75 / 804.75 -550 / -550 Medical Nutrition Assessment Dietitian: Malnutrition Criteria Met Start: 01/03/24 11:50 Freq: Status: Active Protocol: Document 01/07/24 10:08 (Rec: 01/07/24 10:08 Deskt) Nutrition Malnutrition Evidence of Malnutrition Exists Yes Malnutrition (severe): Chronic Evidenced By Suboptimal Energy Intake ( Severe),Weight Loss (Severe) Intake Problem Inadequate Oral Intake Etiology r/t GI dysfunction, altered mental status Signs/Symptoms as evidenced by current PO intake meeting <50% of estimated energy needs Status Active Problem Clinical Problem Chronic Disease or Condition Related Malnutrition Etiology severe malnutrition related to inadequate energy intake Signs/Symptoms as evidenced by unintentional 12% wt loss < 6 months, 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 needs > 1 month Status Active Problem Recommendation Dietitian Recommendations/Changes recommend advance diet as tolerated to transitional; will make additional diet recommendations as tolerance of diet is established Lab / Micro Data 01/07/24 07:25 01/07/24 07:25 Labs: Laboratory Results - last 24 hr 01/04/24 04:18: IgG 1003, IgA 183, IgM 49, Serum Immunofixation Comment:, c-ANCA Antibody >1:640 H, Atypical p-ANCA <1:20, p-ANCA Antibody <1:20, Glomerular Base Memb Ab < 0.2, Complement C3 140 01/07/24 07:25: WBC 9.8, RBC 2.76 L, Hgb 7.7 L, Hct 25.1 L, MCV 90.9, MCH 27.9, MCHC 30.7 L, RDW Std Deviation 52.2 H, RDW Coeff of Magdalene 16.0 H, Plt Count 291, MPV 10.8, Immature Gran % (Auto) 1.000 H, Neut % (Auto) 88.5 H, Lymph % (Auto) 9.2 L, Becker % (Auto) 1.1, Eos % (Auto) 0.0, Baso % (Auto) 0.2, Absolute Neuts (auto) 8.7 H, Absolute Lymphs (auto) 0.90, Nucleated RBC % 0, PT 16.7 H, INR 1.4, APTT 36.8 H, Sodium 141, Potassium 5.3 H, Chloride 111 H, Carbon Dioxide 15.0 L, Anion Gap 15, BUN 109 H*, Creatinine 9.65 H*, Estim Creat Clear Calc 4.39, Est GFR (MDRD) Af Amer 5 L, Est GFR (MDRD) Non-Af 4 L, BUN/Creatinine Ratio 11.3, Glucose 140 H, Calcium 8.8, Total Bilirubin 0.30, AST 11 L, ALT < 6 L, Alkaline Phosphatase 92, Total Protein 5.4 L, Albumin 1.5 L, Globulin 3.9, Albumin/Globulin Ratio 0.4 L Micro: Microbiology 01/03/24 03:00 Stool Stool Occult Blood (MASON) - Final Occult Blood Positive ABG Data ABG results: ABG 01/06/24 13:27 Specimen Type ART Sample Site R Radial pH 7.32 L Bicarbonate Actual 14.4 L Total CO2 15 Base Excess -12 L O2 Saturation 97 O2 % 3.0 ABG pCO2 27.8 L ABG pO2 98 Darion Test Positive O2 Delivery Device Cannula Vent Mode Not entered Radiography Diagnostic Testing: Radiology Impression Chest X-Ray 01/05/24 15:05 IMPRESSION: Progressive pleural parenchymal changes at the left lung base. Stable increased markings at the lung apices. A right-sided double-lumen catheter has been placed with the tip at the junction of the superior vena cava and right atrium. Electronically Signed: Willam Del Angel MD at 15:30 EDT , Head/Neck CTA 01/06/24 13:15 IMPRESSION: Minimal plaque formation at the origin of the right and left internal carotid arteries without significant stenosis. Bilateral pleural effusions with findings suggestive of masses in the upper lobes. Correlation with a CT scan of the thorax is recommended if clinically indicated. Electronically Signed: Willam Del Angel MD at 14:33 EDT , ADDENDUM: 01/07/24 0835 IMPRESSION: undefined Chest CT 01/06/24 15:55 IMPRESSION: Moderate bilateral pleural effusions with basilar consolidations/atelectasis. Bilateral apical mass lesions. Multiple pulmonary nodules bilaterally as noted.. Malignancy is suspected. Electronically Signed: Justin Diana DO at 17:00 EDT , Physical Exam Const alert, oriented x3, no apparent distress and average body habitus; Negative for healthy appearing or well nourished Constitutional Narrative: Older, white female, sitting up in bed, currently on dialysis, confused, appears ill but not toxic HEENT head/scalp atraumatic and moist oral mucous membranes Eyes PERRL and EOMs intact bilaterally Eyes Narrative: Conjunctiva are pale bilaterally, no scleral icterus Neck no lymphadenopathy and supple Neck Narrative: Trachea midline, no thyroid enlargement Resp normal respiratory effort, no retractions, no use of accessory muscles and clear to auscultation bilaterally Resp Narrative: Crackles in bases bilaterally Auscultation: crackles; Negative for rales, rhonchi or wheezes Cardio regular rate, S1 normal heart sound, S2 normal heart sound, no murmurs, no rub, no gallops and no clicks Cardio Narrative: Rate is currently normal but rhythm is irregularly irregular GI normal to inspection, nondistended, normoactive bowel sounds, soft to palpation and non-tender Extremity no clubbing, cyanosis or edema Extremity Narrative: Pedal pulses and radial pulses are 2+, no cyanosis or clubbing, trace bilateral lower extremity edema Skin skin turgor normal, no jaundice, no petechiae and no mottling Skin Narrative: Pale, dialysis catheter right upper chest dressing appears clean dry and intact Neuro oriented x3, moves all extremities and no focal motor deficits Neuro Narrative: Significant generalized weakness noted but no focal deficits identified Sensorium / Orientation: awake, alert, oriented to person and oriented to place Speech: speech normal Psych affect normal Psych Narrative: Affect is flat today and patient appears sleepy Assessment & Plan Assessment/Plan (1) GRACE (acute kidney injury): (2) Anemia: (3) SVT (supraventricular tachycardia): (4) Hyperkalemia: (5) Metabolic acidosis: (6) Hypotension: PLAN: Plan GRACE -Baseline is unknown -Remains oliguric -Immunological workup is back and shows marked positivity with c-ANCA -IL-3 and MPO antibodies are pending -Patient also appears a pulmonary disease associated with this -Renal biopsy performed on 01/05/2024 and I was called yesterday by nephrology and 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 with EM pending -Final report is pending -Started on Solu-Medrol 1 g daily -Will need rituximab--> unable to give here due to high intensity of staffing requirements--> recommended transfer but is requesting we wait until tomorrow evening when his son can get here and help make decisions as the patient is not decisional at this time -Will continue steroids in the short-term -Tunneled dialysis catheter placed on 01/05/2024 -Nephrology following-appreciate input--> extensively discussed with nephrology today Hypoxia -Has been weaned to 3 L -Not O2 dependent at baseline -Continue to wean oxygen as able -Likely multifactorial related to lung masses and vasculitis as well as volume overload due to renal dysfunction -Continue dialysis -Will need ambulatory pulse ox prior to discharge -Pulmonary medicine is following-appreciate input Bilateral lung masses -Likely vasculitic related -CT-guided biopsy has been recommended by pulmonary medicine -IL-3 and MPO antibodies were added on to her immunological workup now that we have positive ANCA's -Continue high-dose steroids as ordered for GRACE from vasculitis Hyperkalemia -Mild but persistent with renal dysfunction and acidosis -Potassium today is 5.3 -Patient receiving dialysis today Nonanion gap metabolic acidosis secondary to renal dysfunction -Serum bicarb slowly improving with dialysis and now up to 15 -Contributing to her metabolic and toxic encephalopathy -Should should resolve with continued dialysis Toxic/metabolic encephalopathy -Likely multifactorial -CTA of the head and neck does not show any signs of vasculitis -MRI of the brain is pending -Neurology consult is pending -Concerned about vasculitis related encephalopathy Severe malnutrition -Continue supplements -Dietitian is following-appreciate input Atrial fibrillation -this appears to be chronic -Per patient this has been an ongoing issue since she was 13 or 15 -Hold Coreg and reinitiate once blood pressure improves -Continue to monitor on telemetry -Will start anticoagulation as patient allows once appropriate from a medical standpoint Anemia -Likely related to ischemic colitis noted on colonoscopy as well as autoimmune vasculitis -Hemoglobin down to 7.7 today which is more consistent with previous lab--> continue to monitor and repeat lab in a.m. -EGD done 01/04/2024 with no identified source of bleeding -colonoscopy done on 01/05/2024 and showed diverticulosis in the rectosigmoid colon and sigmoid colon, localized moderate inflammation in the rectosigmoid colon, sigmoid colon and descending colon consistent with ischemic colitis, biopsies were taken and pending -Will start anticoagulation once okay with gastroenterology -Biopsies reviewed and show no H. pylori on the EGD and a colonoscopy biopsy was consistent with focal colitis Esophagitis -Continue Protonix 40 mg daily Hypertension -Hypotension after procedures on 01/05/2024 -Continue to hold Coreg -Will restart Coreg when hemodynamics improve -As needed hydralazine for systolic blood pressure greater than 160 Debility/generalized weakness -PT/OT is following -patient would strongly prefer to go home if possible -Hopefully she will continue to improve once we start dialysis DVT prophylaxis -Chemoprophylaxis contraindicated will start DOAC as soon as okay with gastroenterology -Continue SCDs CODE STATUS -DNR CCA with no intubation per discussion on admission Disposition: -Nephrology would like to start rituximab on her at some point soon however we are unable to doses here due to staffing purposes and she will therefore need transfer to tertiary center. Transfer is not emergent but recommended by nephrology as soon as possible. I discussed this at length with her and he states he is not capable of making any decisions right now and would like to wait till his son gets here tomorrow evening. I discussed this further with nephrology and they felt that she would be stable during that time. She is currently on steroids. In the meantime we will have neurology see her to assess whether or not they think that her mental status is related to vasculitic process as well. Charges/Coding Visit Charges Inpatient E&M: 88957 Subs Hosp L3
--- NOTE | 2024-01-07 12:59 | PN.RENAL_ITS ---
Subjective Subjective Overnight events noted. She is more somnolent today. Objective Data Objective Data Vital Signs: Vital Signs Temp Pulse Resp BP Pulse Ox O2 Del Method O2 Flow Rate 97.7 F L 74 22 H 123/58 H 98 Nasal Cannula 3 01/07/24 12:00 01/07/24 12:00 01/07/24 12:00 01/07/24 12:00 01/07/24 12:00 01/07/24 12:00 01/07/24 12:00 FiO2 3 01/07/24 07:00 Oxygen Flow Rate (L/min) 3 Oxygen Delivery Method Nasal Cannula Weight: 66.2 kg Body Mass Index (BMI) 24.3 Intake & Output: Intake and Output for Last 24 Hours 01/05/24 01/06/24 01/07/24 23:59 23:59 23:59 Intake Total 2109 804.75 / 804.75 200 / 200 Output Total 0 / 0 750 / 750 Balance 2109 804.75 / 804.75 -550 / -550 Medical Nutrition Assessment Dietitian: Malnutrition Criteria Met Start: 01/03/24 11:50 Freq: Status: Active Protocol: Document 01/07/24 10:08 AG (Rec: 01/07/24 10:08 AG Desktop) Nutrition Malnutrition Evidence of Malnutrition Exists Yes Malnutrition (severe): Chronic Evidenced By Suboptimal Energy Intake ( Severe),Weight Loss (Severe) Intake Problem Inadequate Oral Intake Etiology r/t GI dysfunction, altered mental status Signs/Symptoms as evidenced by current PO intake meeting <50% of estimated energy needs Status Active Problem Clinical Problem Chronic Disease or Condition Related Malnutrition Etiology severe malnutrition related to inadequate energy intake Signs/Symptoms as evidenced by unintentional 12% wt loss < 6 months, 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 needs > 1 month Status Active Problem Recommendation Dietitian Recommendations/Changes recommend advance diet as tolerated to transitional; will make additional diet recommendations as tolerance of diet is established Lab / Micro Data 01/07/24 07:25 01/07/24 07:25 Labs: Laboratory Results - last 24 hr 01/04/24 04:18: IgG 1003, IgA 183, IgM 49, Serum Immunofixation Comment:, c-ANCA Antibody >1:640 H, Atypical p-ANCA <1:20, p-ANCA Antibody <1:20, Glomerular Base Memb Ab < 0.2, Complement C3 140 01/07/24 07:25: WBC 9.8, RBC 2.76 L, Hgb 7.7 L, Hct 25.1 L, MCV 90.9, MCH 27.9, MCHC 30.7 L, RDW Std Deviation 52.2 H, RDW Coeff of Magdalene 16.0 H, Plt Count 291, MPV 10.8, Immature Gran % (Auto) 1.000 H, Neut % (Auto) 88.5 H, Lymph % (Auto) 9.2 L, [place] % (Auto) 1.1, Eos % (Auto) 0.0, Baso % (Auto) 0.2, Absolute Neuts (auto) 8.7 H, Absolute Lymphs (auto) 0.90, Nucleated RBC % 0, PT 16.7 H, INR 1.4, APTT 36.8 H, Sodium 141, Potassium 5.3 H, Chloride 111 H, Carbon Dioxide 15.0 L, Anion Gap 15, BUN 109 H*, Creatinine 9.65 H*, Estim Creat Clear Calc 4.39, Est GFR (MDRD) Af Amer 5 L, Est GFR (MDRD) Non-Af 4 L, BUN/Creatinine Ratio 11.3, Glucose 140 H, Calcium 8.8, Total Bilirubin 0.30, AST 11 L, ALT < 6 L, Alkaline Phosphatase 92, Total Protein 5.4 L, Albumin 1.5 L, Globulin 3.9, Albumin/Globulin Ratio 0.4 L Micro: Microbiology 01/03/24 03:00 Stool Stool Occult Blood (MASON) - Final Occult Blood Positive ABG Data ABG results: ABG 01/06/24 13:27 Specimen Type ART Sample Site R Radial pH 7.32 L Bicarbonate Actual 14.4 L Total CO2 15 Base Excess -12 L O2 Saturation 97 O2 % 3.0 ABG pCO2 27.8 L ABG pO2 98 Darion Test Positive O2 Delivery Device Cannula Vent Mode Not entered Radiography Diagnostic Testing: Radiology Impression Chest X-Ray 01/05/24 15:05 IMPRESSION: Progressive pleural parenchymal changes at the left lung base. Stable increased markings at the lung apices. A right-sided double-lumen catheter has been placed with the tip at the junction of the superior vena cava and right atrium. Electronically Signed: Willam Del Angel MD at 15:30 EDT , Head/Neck CTA 01/06/24 13:15 IMPRESSION: Minimal plaque formation at the origin of the right and left internal carotid arteries without significant stenosis. Bilateral pleural effusions with findings suggestive of masses in the upper lobes. Correlation with a CT scan of the thorax is recommended if clinically indicated. Electronically Signed: Willam Del Angel MD at 14:33 EDT , ADDENDUM: 01/07/24 0835 IMPRESSION: undefined Chest CT 01/06/24 15:55 IMPRESSION: Moderate bilateral pleural effusions with basilar consolidations/atelectasis. Bilateral apical mass lesions. Multiple pulmonary nodules bilaterally as noted.. Malignancy is suspected. Electronically Signed: Justin Diana DO at 17:00 EDT , Physical Exam Narrative no obvious distress no pallor no icterus no JVD s1s2 no murmurs lungs clear abdomen soft no organomegaly no edema no cyanosis Assessment & Plan Assessment/Plan (1) ANCA-associated vasculitis: (2) GRACE (acute kidney injury): PLAN: Came in with a creatinine of 11. No prior baseline available. Renal ultrasound without any hydronephrosis. Received a call from pathologist yesterday about biopsy. She has pauci-immune crescentic glomerulonephritis. C ANCA titer came back today fairly high. Most likely ANCA related vasculitis. CT chest with extensive consolidation/cavitary lesions. Discussed with pulmon miguel angel. Likely vasculitis ER as well but she does have history of smoking so eventually will need a biopsy. Received dialysis yesterday, received dialysis today. Main concern right now is her mental status. Neurology has been consulted. With respect to treatment, I have started her on Solu-Medrol pulse dose yesterday. Plan to give 3 doses and switch to 60 mg once a day after. Plasmapheresis is not indicated anymore for renal failure from ANCA vasculitis. She does not have diffuse alveolar hemorrhage to substantiate that indication. Eventually she will need rituximab. Active issues in mental status since yesterday. MRI brain has been ordered. Neurology consult pending. If there is a suspicion of neurological vasculitis, she will have to be transferred to tertiary care center. Spoke to at bedside. He states he cannot drive to [place] and would prefer [facility]. His son is coming in tomorrow to help him make further decisions. But today continue same treatment. We will wait for neurology input. PLAN: Plan
--- NOTE | 2024-01-07 14:37 | CHAPLAIN ---
Type of Pastoral Visit _x__ Initial Visit ___ Follow-up Visit ___ On-call Visit ___ General Patient Visit ___ Spiritual Assessment ___ Family Conference ___ Bereavement ___ Rapid Response ___ Code Blue ___ Other (describe below) Pastoral Care Referral From ___ Patient _x__ Family ___ Nurse ___ Physician ___ Microstrategy Architect Developer ___ Hearth Feeder ___ Other (describe below) Sacrament/Intervention ___ Active listening ___ Anointing ___ Orthodoxy ___ Bereavement ___ Communion ___ Fariba exploration ___ ___ Life review _x__ Prayer ___ Reconciliation ___ Sacrament of Sick ___ Supportive presence ___ Wedding ___ Other (describe below) Pastoral Comments patient was sleeping and did not awaken; gave audible prayer and left a calling card for the family; pt is to get transferred today
--- NOTE | 2024-01-07 17:50 | NEURO.CONS ---
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 Doubt SANITATION MANAGER vasculitis which is quite rare and not suggested by current imaging. Encephalopathy is likely multifactorial and primarily toxic-metabolic, with contributions in particular from renal failure. Highest yield course of action is treating her medical conditions aggressively (I note nephrology/primary team supports rituximab which, from a neurological perspective, is very reasonable) while maintaining delirium precautions. Support EEG but if we do see seizures they are likely secondary to other phenomena, not indicative of a pre-existing epilepsy. Diagnosis: acute toxic metabolic encephalopathy anca-associated vasculitis renal failure Plan: routine EEG delirium precautions: avoid sedating medications, encourage day/night light cycle, reorient as possible, provide eyeglasses and hearing aides as indicated aggressive treatment of medical problems I personally attended this patient and spent a total time of 39 minutes evaluating this patient including clinical assessment, review of chart, medical history imaging, and determining appropriate treatment and workup. 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 History is per chart as patient is not responsive or participatory. She presented on 01/01 with concern for generalized weakness and bad tooth without medical care for years previous. Inpatient she was found to have renal failure, anemia and electrolyte derangement, ischemic colitis, and bilateral lung masses, believed to be consistent with ANCA-associated vasculitis. Renal biopsy completed, dialysis catheter placed and dialysis started. With severe encephalopathy concern was raised for SANITATION MANAGER vasculitis, but advanced imaging (see below) is not particularly suggestive of this (or of stroke or mass). Responsiveness waxing and waning per chart and staff as she is totally unresponsive to me, was oriented to name for other staff, and is reported to have something almost like an aphasia from bedside RN. [facility] Medical History (Updated 01/07/24 @ 08:[address] Matthias Shine, DO) Hyperkalemia Medical History no medical history Home Medications ascorbic acid (vitamin C) 250 mg tablet 250 mg PO DAILY 01/02/24 [History Last Taken Unknown] cholecalciferol (vitamin D3) 25 mcg (1,000 unit) capsule 25 mcg PO DAILY 01/02/24 [History Last Taken Unknown] cyanocobalamin (vitamin B-12) 1,000 mcg capsule 1,000 mcg PO DAILY 01/02/24 [History Last Taken Unknown] iron,carbonyl-vitamin C-FOS 1 tab PO DAILY 01/02/24 [History Last Taken Unknown] magnesium citrate 100 mg tablet 400 mg PO DAILY 01/02/24 [History Last Taken Unknown] multivitamin (Daily Multi-Vitamin tablet) 1 tab PO DAILY 01/02/24 [History Last Taken Unknown] Allergy/AdvReac Type Severity Reaction Status Date / Time No Known Allergies Allergy Verified 01/02/24 11:36 Social History Smoking Status: Former smoker Vital Signs Vital Signs Vital Signs: 01/06/24 18:00 01/06/24 19:00 01/06/24 20:00 Temperature 97.5 F L Temperature Source Temporal Pulse Rate 77 72 65 Pulse Strength Respiratory Rate 18 15 16 Respiratory Effort Respiratory Depth Respiratory Pattern Blood Pressure 114/58 L 122/69 H 138/53 H Blood Pressure Mean 76 86 81 Blood Pressure Source Monitor Monitor Monitor Blood Pressure Position Semi-Fowlers Semi-Fowlers Semi-Fowlers Blood Pressure Location Right Arm Right Arm Right Arm Pulse Ox 94 90 96 Oxygen Delivery Method Nasal Cannula Room Air Nasal Cannula Oxygen Flow Rate (L/min) 3 3 Fraction of Inspired Oxygen (FIO2) 01/06/24 20:00 01/06/24 21:00 01/06/24 22:00 Temperature Temperature Source Pulse Rate 81 82 Pulse Strength Respiratory Rate 16 16 Respiratory Effort Normal Non-Labored Respiratory Depth Normal Respiratory Pattern Normal Blood Pressure 121/69 H 138/57 H Blood Pressure Mean 86 84 Blood Pressure Source Monitor Monitor Blood Pressure Position Semi-Fowlers Semi-Fowlers Blood Pressure Location Right Arm Right Arm Pulse Ox 92 90 Oxygen Delivery Method Nasal Cannula Nasal Cannula Nasal Cannula Oxygen Flow Rate (L/min) 3 3 3 Fraction of Inspired Oxygen (FIO2) 01/06/24 23:00 01/07/24 00:00 01/07/24 00:00 Temperature 97.8 F Temperature Source Temporal Pulse Rate 86 83 Pulse Strength Respiratory Rate 17 16 Respiratory Effort Normal Non-Labored Respiratory Depth Normal Respiratory Pattern Normal Blood Pressure 139/106 H 120/68 Blood Pressure Mean 117 85 Blood Pressure Source Monitor Monitor Blood Pressure Position Semi-Fowlers Semi-Fowlers Blood Pressure Location Right Arm Right Arm Pulse Ox 92 94 Oxygen Delivery Method Nasal Cannula Nasal Cannula Nasal Cannula Oxygen Flow Rate (L/min) 3 3 3 Fraction of Inspired Oxygen (FIO2) 01/07/24 02:50 01/07/24 06:00 01/07/24 06:00 Temperature 97.9 F 97.5 F L 97.5 F L Temperature Source Temporal Temporal Temporal Pulse Rate 87 73 73 Pulse Strength Respiratory Rate 17 14 14 Respiratory Effort Respiratory Depth Respiratory Pattern Blood Pressure 123/90 H 102/70 102/70 Blood Pressure Mean 101 80 80 Blood Pressure Source Monitor Monitor Blood Pressure Position Semi-Fowlers Semi-Fowlers Blood Pressure Location Right Arm Right Arm Pulse Ox 93 96 96 Oxygen Delivery Method Nasal Cannula Nasal Cannula Nasal Cannula Oxygen Flow Rate (L/min) 3 3 3 Fraction of Inspired Oxygen (FIO2) 01/07/24 07:57 01/07/24 08:15 01/07/24 08:23 Temperature Temperature Source Pulse Rate 71 90 87 Pulse Strength Respiratory Rate 13 14 19 H Respiratory Effort Normal Non-Labored Respiratory Depth Normal Respiratory Pattern Normal Blood Pressure 145/58 H 132/64 H 132/64 H Blood Pressure Mean 87 86 86 Blood Pressure Source Monitor Monitor Monitor Blood Pressure Position Semi-Fowlers Semi-Fowlers Semi-Fowlers Blood Pressure Location Right Arm Right Arm Right Arm Pulse Ox 99 94 92 Oxygen Delivery Method Nasal Cannula Nasal Cannula Nasal Cannula Oxygen Flow Rate (L/min) 2 2 2 Fraction of Inspired Oxygen (FIO2) 01/07/24 08:38 01/07/24 08:52 01/07/24 09:08 Temperature Temperature Source Pulse Rate 85 72 90 Pulse Strength Respiratory Rate 17 13 17 Respiratory Effort Respiratory Depth Respiratory Pattern Blood Pressure 120/46 L 121/53 H 141/67 H Blood Pressure Mean 70 75 91 Blood Pressure Source Monitor Monitor Monitor Blood Pressure Position Semi-Fowlers Semi-Fowlers Semi-Fowlers Blood Pressure Location Right Arm Right Arm Right Arm Pulse Ox 95 97 97 Oxygen Delivery Method Nasal Cannula Nasal Cannula Nasal Cannula Oxygen Flow Rate (L/min) 2 2 2 Fraction of Inspired Oxygen (FIO2) 01/07/24 09:23 01/07/24 09:45 01/07/24 09:59 Temperature Temperature Source Pulse Rate 75 68 75 Pulse Strength Respiratory Rate 17 15 19 H Respiratory Effort Respiratory Depth Respiratory Pattern Blood Pressure 122/44 H 119/73 120/47 L Blood Pressure Mean 70 88 71 Blood Pressure Source Monitor Monitor Monitor Blood Pressure Position Semi-Fowlers Semi-Fowlers Semi-Fowlers Blood Pressure Location Right Arm Right Arm Right Arm Pulse Ox 97 96 96 Oxygen Delivery Method Nasal Cannula Nasal Cannula Nasal Cannula Oxygen Flow Rate (L/min) 2 2 2 Fraction of Inspired Oxygen (FIO2) 01/07/24 10:15 01/07/24 10:45 01/07/24 08:00 Temperature Temperature Source Pulse Rate 69 66 Pulse Strength Respiratory Rate 12 19 H Respiratory Effort Normal Non-Labored Normal Non-Labored Respiratory Depth Normal Normal Respiratory Pattern Normal Normal Blood Pressure 133/91 H 115/70 Blood Pressure Mean 105 85 Blood Pressure Source Monitor Monitor Blood Pressure Position Semi-Fowlers Semi-Fowlers Blood Pressure Location Right Arm Right Arm Pulse Ox 97 95 Oxygen Delivery Method Nasal Cannula Nasal Cannula Nasal Cannula Oxygen Flow Rate (L/min) 2 2 3 Fraction of Inspired Oxygen (FIO2) 01/07/24 10:00 01/07/24 07:00 01/07/24 08:00 Temperature Temperature Source Pulse Rate 88 90 Pulse Strength Normal (2+) Respiratory Rate 14 22 H Respiratory Effort Respiratory Depth Respiratory Pattern Blood Pressure 102/70 145/58 H Blood Pressure Mean 80 87 Blood Pressure Source Monitor Monitor Blood Pressure Position Semi-Fowlers Semi-Fowlers Blood Pressure Location Right Arm Right Arm Pulse Ox 94 94 Oxygen Delivery Method Nasal Cannula Nasal Cannula Oxygen Flow Rate (L/min) 3 Fraction of Inspired Oxygen (FIO2) 3 01/07/24 11:00 01/07/24 09:00 01/07/24 10:00 Temperature Temperature Source Pulse Rate 80 85 65 Pulse Strength Respiratory Rate 22 H 18 14 Respiratory Effort Respiratory Depth Respiratory Pattern Blood Pressure 126/42 H 141/67 H 120/47 L Blood Pressure Mean 70 91 71 Blood Pressure Source Monitor Monitor Monitor Blood Pressure Position Semi-Fowlers Semi-Fowlers Semi-Fowlers Blood Pressure Location Right Arm Right Arm Right Arm Pulse Ox 96 95 97 Oxygen Delivery Method Nasal Cannula Nasal Cannula Nasal Cannula Oxygen Flow Rate (L/min) 3 3 3 Fraction of Inspired Oxygen (FIO2) 01/07/24 12:00 01/07/24 12:00 01/07/24 13:00 Temperature 97.7 F L Temperature Source Temporal Pulse Rate 74 75 Pulse Strength Respiratory Rate 22 H 22 H Respiratory Effort Normal Non-Labored Respiratory Depth Normal Respiratory Pattern Normal Blood Pressure 123/58 H 121/45 H Blood Pressure Mean 79 70 Blood Pressure Source Monitor Blood Pressure Position Semi-Fowlers Blood Pressure Location Right Arm Pulse Ox 98 98 Oxygen Delivery Method Nasal Cannula Nasal Cannula Nasal Cannula Oxygen Flow Rate (L/min) 3 3 3 Fraction of Inspired Oxygen (FIO2) 01/07/24 14:00 01/07/24 15:00 01/07/24 16:00 Temperature Temperature Source Pulse Rate 77 81 Pulse Strength Respiratory Rate 20 H 18 Respiratory Effort Respiratory Depth Respiratory Pattern Blood Pressure 114/44 L 124/54 H Blood Pressure Mean 67 77 Blood Pressure Source Monitor Monitor Blood Pressure Position Semi-Fowlers Semi-Fowlers Blood Pressure Location Right Arm Right Arm Pulse Ox 97 99 94 Oxygen Delivery Method Nasal Cannula Nasal Cannula Nasal Cannula Oxygen Flow Rate (L/min) 3 3 3 Fraction of Inspired Oxygen (FIO2) 01/07/24 16:00 01/07/24 17:00 Temperature Temperature Source Pulse Rate 64 79 Pulse Strength Respiratory Rate 18 20 H Respiratory Effort Respiratory Depth Respiratory Pattern Blood Pressure 154/71 H 134/75 H Blood Pressure Mean 98 94 Blood Pressure Source Monitor Monitor Blood Pressure Position Semi-Fowlers Semi-Fowlers Blood Pressure Location Right Arm Right Arm Pulse Ox 98 98 Oxygen Delivery Method Room Air Nasal Cannula Oxygen Flow Rate (L/min) 3 Fraction of Inspired Oxygen (FIO2) Weight Weight: 66.2 kg Body Mass Index (BMI) 24.3 EEG Results Procedure Details EEG Procedure Details: DIAN WEBB is a 78 year old F with a past medical history of , who presents for evaluation of Electroencephalogram on DATE at TIME Physical Exam Neuro Neuro Narrative: Exam limited by participation and responsiveness. Eyes open and sitting upright, no eye contact or response to commands but regarding me and bedside RN. Can track left to right across midline. GARCIA spontaneously, with unclear ROM or strength. Medical Records Data Medical Nutrition Assessment Dietitian: Malnutrition Criteria Met Start: 01/03/24 11:50 Freq: Status: Active Protocol: Document 01/07/24 10:08 AG (Rec: 01/07/24 10:08 AG Desktop) Nutrition Malnutrition Evidence of Malnutrition Exists Yes Malnutrition (severe): Chronic Evidenced By Suboptimal Energy Intake ( Severe),Weight Loss (Severe) Intake Problem Inadequate Oral Intake Etiology r/t GI dysfunction, altered mental status Signs/Symptoms as evidenced by current PO intake meeting <50% of estimated energy needs Status Active Problem Clinical Problem Chronic Disease or Condition Related Malnutrition Etiology severe malnutrition related to inadequate energy intake Signs/Symptoms as evidenced by unintentional 12% wt loss < 6 months, 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 needs > 1 month Status Active Problem Recommendation Dietitian Recommendations/Changes recommend advance diet as tolerated to transitional; will make additional diet recommendations as tolerance of diet is established Lab / Micro Data 01/07/24 07:25 01/07/24 07:25 Labs: Laboratory Results - last 24 hr 01/04/24 04:18: Glomerular Base Memb Ab < 0.2 01/07/24 07:25: WBC 9.8, RBC 2.76 L, Hgb 7.7 L, Hct 25.1 L, MCV 90.9, MCH 27.9, MCHC 30.7 L, RDW Std Deviation 52.2 H, RDW Coeff of Magdalene 16.0 H, Plt Count 291, MPV 10.8, Immature Gran % (Auto) 1.000 H, Neut % (Auto) 88.5 H, Lymph % (Auto) 9.2 L, [place] % (Auto) 1.1, Eos % (Auto) 0.0, Baso % (Auto) 0.2, Absolute Neuts (auto) 8.7 H, Absolute Lymphs (auto) 0.90, Nucleated RBC % 0, PT 16.7 H, INR 1.4, APTT 36.8 H, Sodium 141, Potassium 5.3 H, Chloride 111 H, Carbon Dioxide 15.0 L, Anion Gap 15, BUN 109 H*, Creatinine 9.65 H*, Estim Creat Clear Calc 4.39, Est GFR (MDRD) Af Amer 5 L, Est GFR (MDRD) Non-Af 4 L, BUN/Creatinine Ratio 11.3, Glucose 140 H, Calcium 8.8, Total Bilirubin 0.30, AST 11 L, ALT < 6 L, Alkaline Phosphatase 92, Total Protein 5.4 L, Albumin 1.5 L, Globulin 3.9, Albumin/Globulin Ratio 0.4 L Imaging Radiology Impression Head/Neck CTA 01/06/24 13:15 IMPRESSION: Minimal plaque formation at the origin of the right and left internal carotid arteries without significant stenosis. Bilateral pleural effusions with findings suggestive of masses in the upper lobes. Correlation with a CT scan of the thorax is recommended if clinically indicated. Electronically Signed: Willam Del Angel MD at 14:33 EDT , ADDENDUM: 01/07/24 0835 IMPRESSION: undefined Chest CT 01/06/24 15:55 IMPRESSION: Moderate bilateral pleural effusions with basilar consolidations/atelectasis. Bilateral apical mass lesions. Multiple pulmonary nodules bilaterally as noted.. Malignancy is suspected. Electronically Signed: Justin Diana DO at 17:00 EDT , Brain MRI 01/07/24 10:00 IMPRESSION: 1. Involutional and chronic ischemic changes of the brain, as described above. 2. Plaque-like configuration of the white matter hyperintensities can also be associated with demyelinating disease. Clinical correlation is recommended. 3. No demonstrated acute infarct or hemorrhage. Electronically Signed: Tomy Birmingham MD at 16:10 EDT , Active Medications Active Medications Active Medications: Current Medications Generic Name Dose Route Start Last Admin Trade Name Freq PRN Reason Stop Dose Admin Acetaminophen 650 mg 01/02/24 16:57 01/07/24 02:58 Acetaminophen 325 Mg Tablet PO 650 mg Q6H PRN PRN Administration Pain 1-10 Or Fever>100.7 Ascorbic Acid 250 mg 01/03/24 08:00 01/07/24 11:22 Ascorbic Acid 500 Mg Tablet PO 250 mg DAILYCM SUMANTH Administration Carvedilol 12.5 mg 01/04/24 11:15 01/05/24 16:48 Carvedilol 12.5 Mg Tablet PO Not Given BID ON LICENSE OF [facility] Protocol Hemodialysis Solution 6 bag 01/07/24 07:45 01/07/24 08:22 Pureflow B 2k Dialysis Soln 1 Bag PF 01/07/24 19:37 3 bag UD SUMANTH Administration Protocol Heparin Sodium (Porcine) 1,000 - 3,000 units 01/07/24 07:34 01/07/24 10:26 Heparin 10,000 Units/10 Ml Vial IV 01/07/24 19:34 1,600 units X1 PRN Administration HD catheter closing Hydralazine HCl 10 mg 01/03/24 22:09 01/04/24 06:45 Hydralazine 20 Mg/Ml Vial IV 10 mg Q4H PRN PRN Administration SBP > 160 Protocol Sodium Chloride 1,000 mls @ 15 mls/hr 01/05/24 11:40 01/07/24 11:23 IV Not Given .Q48H SUMANTH Norepinephrine Bitartrate 8 mg 250 mls @ 9.375 mls/hr 01/05/24 18:00 01/06/24 20:31 / Sodium Chloride CONT INF Not Given .[id number] SUMANTH Protocol 5 MCG/MIN Methylprednisolone 1,000 mg/ 116 mls @ 100 mls/hr 01/06/24 13:25 01/07/24 13:02 Sodium Chloride IV 01/08/24 11:10 Infused DAILY SUMANTH Infusion Nitroglycerin 0.4 mg 01/02/24 16:57 Nitroglycerin (Inpatient Use) 0.4 Mg Tab.Subl SL Q5M PRN CARDIAC/CHEST PAIN Pantoprazole Sodium 40 mg 01/05/24 10:00 01/07/24 11:22 Pantoprazole Sodium 40 Mg Tablet PO 40 mg DAILY SUMANTH Administration Prochlorperazine Edisylate 5 mg 01/02/24 16:57 01/02/24 18:09 Prochlorperazine 10 Mg/2 Ml Vial IV 5 mg Q4H PRN PRN Administration Breakthrough Nausea/Vomiting Senna/Docusate Sodium 2 tablet 01/02/24 16:57 Senna/Docusate Sodium 1 Tablet PO BID PRN PRN Constipation Sodium Chloride 10 - 40 ml 01/02/24 17:08 01/07/24 10:25 0.9% Saline Lock 10 Ml Syringe IV 20 ml UD PRN Administration SALINE FLUSH Sodium Chloride 10 - 40 ml 01/03/24 17:58 0.9% Saline Lock 10 Ml Syringe IV UD PRN SALINE FLUSH Sodium Chloride 1,000 ml 01/07/24 07:35 01/07/24 08:21 0.9% Normal Saline 1,000 Ml Iv.Soln. OPERA.SITE 01/07/24 19:34 1,000 ml X1 SUMANTH Administration Sodium Chloride 200 ml 01/07/24 07:34 0.9% Normal Saline 1,000 Ml Iv.Soln. IV 01/07/24 19:34 X1 PRN to maintain SBP >90mmHg during Dialysis
[2024-01-08] VITALS (50 sets, daily range): BP systolic 89–217; BP diastolic 43–119; PULSE 55–89; RESP 7–22; TEMP 36.4–37.1; O2SAT 90–98; BMI 24.3; BMI 23.5
[2024-01-08 04:39] LABS: Absolute Lymphocyte Count 0.98 X10^3/uL (0.83-4.51); Absolute Neutrophil Count 9.9 X10^3/uL (2.0-7.7); Basophil# 0.01 X10^3/uL; Basophil% 0.1 % (0-1); Hematocrit 22.3 % (37-47); Lymphocyte # 0.98 X10^3/ul (0.83-4.51); Lymphocyte % 8.7 % (19-41); Mean Corp Hgb Conc 31.4 g/dL (32-36); Mean Corpuscular Hgb 28.3 pg (27.0-32.0); Mean Corpuscular Volume 90.3 fL (81-99); Mean Platelet Vol. 10.7 fl (6.2-12.0); Monocyte# 0.36 X10^3/uL; Monocyte% 3.2 % (0-10); NRBC Flagged by Analyzer 0 % (0-5); Neutrophil # 9.86 X10^3/uL (2.7-7.7); Neutrophil % 87.3 % (47-70); Platelet Count 257 K/mm3 (150-450); RBC Distribution Width SD 52.6 fl (35.1-43.9); Red Blood Count 2.47 M/mm3 (4.2-5.4); White Blood Count 11.3 K/mm3 (4.4-11.0)
[2024-01-08 05:50] LABS: ALB/GLOB Ratio 0.4 RATIO (0.9-2.4); AST(SGOT) 12 U/L (15-37); Alanine Aminotransfer ALT/SGPT < 6 U/L (13-56); Albumin, Serum 1.6 g/dL (3.2-5.0); Alkaline Phosphatase 84 U/L (45-117); Anion Gap 12 (5-15); BUN 89 mg/dL (7-18); BUN/Creat Ratio 11.6 RATIO (10-20); Calcium,Total 8.5 mg/dL (8.5-10.1); Chloride 109 mmol/L (98-107); Creatinine, Serum 7.66 mg/dL (0.55-1.02); EST Glomerular Filtration Rate 6 mL/min (>60); Est Glom Filt Rate - Afr Amer 7 mL/min (>60); Estimated Creatinine Clearance 5.53 ml/min; Globulin 3.6 g/dL (2.2-4.2); Glucose 148 mg/dL (74-106); Magnesium 2.4 mg/dL (1.6-2.6); Phosphorus 7.9 mg/dL (2.5-4.9); Potassium 4.8 mmol/L (3.5-5.1); Protein, Total 5.2 g/dL (6.4-8.2); Sodium Level 140 mmol/L (136-145)
--- NOTE | 2024-01-08 06:41 | PCM.PN.INT ---
Assessment & Plan Assessment/Plan (1) ANCA-associated vasculitis: PLAN: Plan RECOMMENDATIONS: 1. Supplemental oxygen, if needed, to maintain saturations at or above 90%. 2. Obtain percutaneous CT-guided lung biopsy. 3. DE-3 and MPO antibodies are pending. 4. Continue high-dose steroids as ordered. Consider initiation of rituximab. 5. Transfuse blood products if hemoglobin is less than 7 g/dL. Continue PPI therapy. IMPRESSIONS: 1. Abnormal chest CT We were consulted to evaluate the patient for an abnormal chest CT which demonstrated biapical lung masses with internal cavitation and evidence of bilateral pulmonary nodules and pleural effusions. 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 The patient has a very remote smoking history. Accordingly, recommend percutaneous CT-guided lung biopsy of the right upper lobe lung mass. In the interim, DE-3 and MPO antibodies were sent. The patient has already been initiated on high-dose steroids and will likely need to be initiated on rituximab. 2. Acute kidney injury Nephrology is following with concern for underlying vasculitis. Plan to continue dialysis support per recommendations. The patient has been initiated on appropriate high-dose steroids. 3. Toxic/metabolic encephalopathy Clinical concern for underlying metabolic derangements in the setting of renal insufficiency. Continue supportive measures noted above. 4. Anemia/atrial fibrillation/hypertension/generalized debility and deconditioning Complicates care, management, recovery and prognosis. Continue PPI therapy. Continue to monitor blood counts and transfuse if hemoglobin drops below 7 g/dL. This note was generated with Mesh[employer] dictation software. It may contain incorrect words, spelling, and punctuation that were not noted in checking the note before signing. Subjective Subjective The patient was seen and examined at the bedside this morning. Events from the last 24 hours have been reviewed. The patient is currently afebrile, hemodynamically stable and maintaining appropriate oxygen saturations on 3 L/min via nasal cannula. No overnight issues were identified by the nursing staff. MRI brain completed yesterday demonstrated no acute findings. Hemoglobin this morning was noted to be 7.0 g/dL. There are tentative plans for CT-guided lung biopsy today. Objective Data Objective Data The patient's most recent lab work, culture data and imaging studies have all been personally reviewed. Vital Signs: Vital Signs Temp Pulse Resp BP Pulse Ox O2 Del Method O2 Flow Rate 98.7 F 72 11 L 154/43 H 92 Nasal Cannula 3 01/08/24 06:00 01/08/24 06:20 01/08/24 06:20 01/08/24 06:15 01/08/24 06:20 01/08/24 06:00 01/08/24 06:00 FiO2 3 01/07/24 17:59 Oxygen Flow Rate (L/min) 3 Oxygen Delivery Method Nasal Cannula Weight: 146 lb 6.191 oz Body Mass Index (BMI) 24.3 Intake & Output: Intake and Output for Last 24 Hours 01/06/24 01/07/24 01/08/24 23:59 23:59 23:59 Intake Total 804.75 / 804.75 316 / 316 0 / 0 Output Total 0 / 0 750 / 750 0 / 0 Balance 804.75 / 804.75 -434 / -434 0 / 0 Medical Nutrition Assessment Dietitian: Malnutrition Criteria Met Start: 01/03/24 11:50 Freq: Status: Active Protocol: Document 01/07/24 10:08 (Rec: 01/07/24 10:08 Desktop) Nutrition Malnutrition Evidence of Malnutrition Exists Yes Malnutrition (severe): Chronic Evidenced By Suboptimal Energy Intake ( Severe),Weight Loss (Severe) Intake Problem Inadequate Oral Intake Etiology r/t GI dysfunction, altered mental status Signs/Symptoms as evidenced by current PO intake meeting <50% of estimated energy needs Status Active Problem Clinical Problem Chronic Disease or Condition Related Malnutrition Etiology severe malnutrition related to inadequate energy intake Signs/Symptoms as evidenced by unintentional 12% wt loss < 6 months, 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 needs > 1 month Status Active Problem Recommendation Dietitian Recommendations/Changes recommend advance diet as tolerated to transitional; will make additional diet recommendations as tolerance of diet is established Lab / Micro Data Attestation: I reviewed the patient's lab results. 01/08/24 04:31 01/08/24 04:31 Labs: Laboratory Results - last 24 hr 01/07/24 07:25: WBC 9.8, RBC 2.76 L, Hgb 7.7 L, Hct 25.1 L, MCV 90.9, MCH 27.9, MCHC 30.7 L, RDW Std Deviation 52.2 H, RDW Coeff of Magdalene 16.0 H, Plt Count 291, MPV 10.8, Immature Gran % (Auto) 1.000 H, Neut % (Auto) 88.5 H, Lymph % (Auto) 9.2 L, [place] % (Auto) 1.1, Eos % (Auto) 0.0, Baso % (Auto) 0.2, Absolute Neuts (auto) 8.7 H, Absolute Lymphs (auto) 0.90, Nucleated RBC % 0, PT 16.7 H, INR 1.4, APTT 36.8 H, Sodium 141, Potassium 5.3 H, Chloride 111 H, Carbon Dioxide 15.0 L, Anion Gap 15, BUN 109 H*, Creatinine 9.65 H*, Estim Creat Clear Calc 4.39, Est GFR (MDRD) Af Amer 5 L, Est GFR (MDRD) Non-Af 4 L, BUN/Creatinine Ratio 11.3, Glucose 140 H, Calcium 8.8, Total Bilirubin 0.30, AST 11 L, ALT < 6 L, Alkaline Phosphatase 92, Total Protein 5.4 L, Albumin 1.5 L, Globulin 3.9, Albumin/Globulin Ratio 0.4 L 01/08/24 04:31: WBC 11.3 H, RBC 2.47 L, Hgb 7.0 L, Hct 22.3 L, MCV 90.3, MCH 28.3, MCHC 31.4 L, RDW Std Deviation 52.6 H, RDW Coeff of Magdalene 16.0 H, Plt Count 257, MPV 10.7, Immature Gran % (Auto) 0.700, Neut % (Auto) 87.3 H, Lymph % (Auto) 8.7 L, [place] % (Auto) 3.2, Eos % (Auto) 0.0, Baso % (Auto) 0.1, Absolute Neuts (auto) 9.9 H, Absolute Lymphs (auto) 0.98, Nucleated RBC % 0, Sodium 140, Potassium 4.8, Chloride 109 H, Carbon Dioxide 19.0 L, Anion Gap 12, BUN 89 H, Creatinine 7.66 H*, Estim Creat Clear Calc 5.53, Est GFR (MDRD) Af Amer 7 L, Est GFR (MDRD) Non-Af 6 L, BUN/Creatinine Ratio 11.6, Glucose 148 H, Calcium 8.5, Phosphorus 7.9 H, Magnesium 2.4, Total Bilirubin 0.30, AST 12 L, ALT < 6 L, Alkaline Phosphatase 84, Total Protein 5.2 L, Albumin 1.6 L, Globulin 3.6, Albumin/Globulin Ratio 0.4 L Micro: Microbiology 01/03/24 03:00 Stool Stool Occult Blood (MASON) - Final Occult Blood Positive Radiography Diagnostic Testing: Radiology Impression Head/Neck CTA 01/06/24 13:15 IMPRESSION: Minimal plaque formation at the origin of the right and left internal carotid arteries without significant stenosis. Bilateral pleural effusions with findings suggestive of masses in the upper lobes. Correlation with a CT scan of the thorax is recommended if clinically indicated. Electronically Signed: Willam Del Angel MD at 14:33 EDT , ADDENDUM: 01/07/24 0835 IMPRESSION: undefined Chest CT 01/06/24 15:55 IMPRESSION: Moderate bilateral pleural effusions with basilar consolidations/atelectasis. Bilateral apical mass lesions. Multiple pulmonary nodules bilaterally as noted.. Malignancy is suspected. Electronically Signed: Justin Diana DO at 17:00 EDT , Brain MRI 01/07/24 10:00 IMPRESSION: 1. Involutional and chronic ischemic changes of the brain, as described above. 2. Plaque-like configuration of the white matter hyperintensities can also be associated with demyelinating disease. Clinical correlation is recommended. 3. No demonstrated acute infarct or hemorrhage. Electronically Signed: Tomy Birmingham MD at 16:10 EDT , Physical Exam Const alert and no apparent distress Constitutional Narrative: Remains largely nonconversant. General Appearance: ill appearing HEENT normocephalic and head/scalp atraumatic Eyes PERRL, EOMs intact bilaterally and conjunctivae normal Neck supple General: trachea midline Chest inspection of chest normal Resp normal respiratory effort Auscultation: rales; Negative for rhonchi or wheezes Cardio S1 normal heart sound and S2 normal heart sound Rhythm: abnormal rhythm GI normal to inspection, nondistended, normoactive bowel sounds Extremity no clubbing, cyanosis or edema Skin no rashes or lesions noted Neuro Neuro Narrative: Confused and disoriented. Psych Mood & Affect: flat affect Charges/Coding Visit Charges Inpatient E&M: 93673 Subs Hosp L2
--- NOTE | 2024-01-08 08:32 | PCM.PN.HOSP ---
Reason for Visit Reason for Visit: Decreased appetite and generalized weakness Subjective Subjective Patient remains confused. No specific issues overnight. Remains on 3 L nasal cannula. Son should be here this evening and hopefully we can make decisions either tonight or tomorrow with regards to transfer to tertiary center for further medical treatment of her vasculitis. was reluctant to make a decision yesterday wanted to wait till his son got here. He is to come tonight. Objective Data Objective Data Vital Signs: Vital Signs Temp Pulse Resp BP Pulse Ox O2 Del Method O2 Flow Rate 98.7 F 72 11 L 154/43 H 92 Nasal Cannula 3 01/08/24 06:00 01/08/24 06:20 01/08/24 06:20 01/08/24 06:15 01/08/24 06:20 01/08/24 08:04 01/08/24 08:04 FiO2 3 01/07/24 17:59 Oxygen Flow Rate (L/min) 3 Oxygen Delivery Method Nasal Cannula Weight: 66.4 kg Body Mass Index (BMI) 24.3 Intake & Output: Intake and Output for Last 24 Hours 01/06/24 01/07/24 01/08/24 23:59 23:59 23:59 Intake Total 804.75 / 804.75 316 / 316 0 / 0 Output Total 0 / 0 750 / 750 0 / 0 Balance 804.75 / 804.75 -434 / -434 0 / 0 Medical Nutrition Assessment Dietitian: Malnutrition Criteria Met Start: 01/03/24 11:50 Freq: Status: Active Protocol: Document 01/07/24 10:08 (Rec: 01/07/24 10:08 Desktop) Nutrition Malnutrition Evidence of Malnutrition Exists Yes Malnutrition (severe): Chronic Evidenced By Suboptimal Energy Intake ( Severe),Weight Loss (Severe) Intake Problem Inadequate Oral Intake Etiology r/t GI dysfunction, altered mental status Signs/Symptoms as evidenced by current PO intake meeting <50% of estimated energy needs Status Active Problem Clinical Problem Chronic Disease or Condition Related Malnutrition Etiology severe malnutrition related to inadequate energy intake Signs/Symptoms as evidenced by unintentional 12% wt loss < 6 months, 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 needs > 1 month Status Active Problem Recommendation Dietitian Recommendations/Changes recommend advance diet as tolerated to transitional; will make additional diet recommendations as tolerance of diet is established Lab / Micro Data 01/08/24 04:31 01/08/24 04:31 Labs: Laboratory Results - last 24 hr 01/07/24 07:25: PT 16.7 H, INR 1.4, APTT 36.8 H, Sodium 141, Potassium 5.3 H, Chloride 111 H, Carbon Dioxide 15.0 L, Anion Gap 15, BUN 109 H*, Creatinine 9.65 H*, Estim Creat Clear Calc 4.39, Est GFR (MDRD) Af Amer 5 L, Est GFR (MDRD) Non-Af 4 L, BUN/Creatinine Ratio 11.3, Glucose 140 H, Calcium 8.8, Total Bilirubin 0.30, AST 11 L, ALT < 6 L, Alkaline Phosphatase 92, Total Protein 5.4 L, Albumin 1.5 L, Globulin 3.9, Albumin/Globulin Ratio 0.4 L 01/08/24 04:31: WBC 11.3 H, RBC 2.47 L, Hgb 7.0 L, Hct 22.3 L, MCV 90.3, MCH 28.3, MCHC 31.4 L, RDW Std Deviation 52.6 H, RDW Coeff of Magdalene 16.0 H, Plt Count 257, MPV 10.7, Immature Gran % (Auto) 0.700, Neut % (Auto) 87.3 H, Lymph % (Auto) 8.7 L, [place] % (Auto) 3.2, Eos % (Auto) 0.0, Baso % (Auto) 0.1, Absolute Neuts (auto) 9.9 H, Absolute Lymphs (auto) 0.98, Nucleated RBC % 0, Sodium 140, Potassium 4.8, Chloride 109 H, Carbon Dioxide 19.0 L, Anion Gap 12, BUN 89 H, Creatinine 7.66 H*, Estim Creat Clear Calc 5.53, Est GFR (MDRD) Af Amer 7 L, Est GFR (MDRD) Non-Af 6 L, BUN/Creatinine Ratio 11.6, Glucose 148 H, Calcium 8.5, Phosphorus 7.9 H, Magnesium 2.4, Total Bilirubin 0.30, AST 12 L, ALT < 6 L, Alkaline Phosphatase 84, Total Protein 5.2 L, Albumin 1.6 L, Globulin 3.6, Albumin/Globulin Ratio 0.4 L 01/08/24 07:05: Crossmatch See Detail Micro: Microbiology 01/03/24 03:00 Stool Stool Occult Blood (MASON) - Final Occult Blood Positive Radiography Diagnostic Testing: Radiology Impression Head/Neck CTA 01/06/24 13:15 IMPRESSION: Minimal plaque formation at the origin of the right and left internal carotid arteries without significant stenosis. Bilateral pleural effusions with findings suggestive of masses in the upper lobes. Correlation with a CT scan of the thorax is recommended if clinically indicated. Electronically Signed: Willam Del Agnel MD at 14:33 EDT , ADDENDUM: 01/07/24 0835 IMPRESSION: undefined Brain MRI 01/07/24 10:00 IMPRESSION: 1. Involutional and chronic ischemic changes of the brain, as described above. 2. Plaque-like configuration of the white matter hyperintensities can also be associated with demyelinating disease. Clinical correlation is recommended. 3. No demonstrated acute infarct or hemorrhage. Electronically Signed: Tomy Birmingham MD at 16:10 EDT , Physical Exam Const alert, no apparent distress and average body habitus; Negative for healthy appearing or well nourished Constitutional Narrative: Older, white female, lying in bed, eyes closed, opens them intermittently, oriented only to self, does not appear uncomfortable HEENT head/scalp atraumatic and moist oral mucous membranes HEENT Narrative: Dentition is poor, Mallampati is 2-3, no thrush Resp normal respiratory effort, no retractions, no use of accessory muscles and clear to auscultation bilaterally Resp Narrative: Crackles in bases bilaterally Auscultation: crackles; Negative for rales, rhonchi or wheezes Cardio regular rate, S1 normal heart sound, S2 normal heart sound, no murmurs, no rub, no gallops and no clicks Cardio Narrative: Rate is currently normal but rhythm is irregularly irregular GI normal to inspection, nondistended, normoactive bowel sounds, soft to palpation and non-tender Extremity Extremity Narrative: Pedal pulses and radial pulses are 2+, no cyanosis or clubbing, trace bilateral lower extremity edema Neuro moves all extremities and no focal motor deficits Neuro Narrative: Significant generalized weakness noted but no focal deficits identified Sensorium / Orientation: awake, alert and oriented to person; Negative for oriented to place or oriented to time Speech: speech normal Psych Psych Narrative: Affect remains flat and patient remains to be her sleepy and confused Assessment & Plan Assessment/Plan (1) GRACE (acute kidney injury): (2) Anemia: (3) SVT (supraventricular tachycardia): (4) Hyperkalemia: (5) Metabolic acidosis: (6) Hypotension: PLAN: Plan GRACE -Baseline is unknown -Remains oliguric -Immunological workup is back and shows marked positivity with c-ANCA -KS-3 and MPO antibodies are pending -Patient also appears a pulmonary disease associated with this -Renal biopsy performed on 01/05/2024 and I was called yesterday by nephrology and 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 with EM pending -Final report remains pending -Tunneled dialysis catheter placed on 01/05/2024 -Nephrology following-appreciate input Hypoxia -Currently remains on 3 L -Not O2 dependent at baseline -Continue to wean oxygen as able -Likely multifactorial related to lung masses and vasculitis as well as volume overload due to renal dysfunction -Continue dialysis -Will need ambulatory pulse ox prior to discharge -Pulmonary medicine is following-appreciate input Bilateral lung masses -Likely vasculitic related -KS-3 and MPO antibodies were added on to her immunological workup now that we have positive ANCA's -Continue pulsed high-dose steroids -Biopsy later today ANCA associated vasculitis -C ANCA is 1:640 -KS-3 and MPO antibodies are pending -Likely that bilateral lung masses and renal dysfunction are all related to her vasculitis -Patient is currently on high-dose pulse steroids with management per nephrology -Plan was to start Rituxan however apparently dosing is too time intensive and we do not have the staffing to do so and patient will need transfer to tertiary center -Discussed with yesterday and he initially would prefer her to go to [place] but is unclear if even wants to transfer her and wants to discuss further with her son who will be here tonight. Will have further discussion with regards to transfer either tonight or tomorrow depending on arrival time Hyperkalemia -Resolved Nonanion gap metabolic acidosis secondary to renal dysfunction -Resolving -Serum bicarb is up to 19 -Patient to have dialysis again later today Toxic/metabolic encephalopathy -Likely multifactorial -CTA of the head and neck does not show any signs of vasculitis -MRI of the brain was not suggestive of vasculitis -Neurology evaluated the patient and felt that this was not vasculitis related encephalopathy and thought that it was multifactorial from multiple metabolic and medication causes -EEG was recommended and is pending -Delirium precautions were recommended -Also recommended ongoing aggressive treatment of her medical problems which we are pursuing Severe malnutrition -Continue supplements -Dietitian is following-appreciate input Atrial fibrillation -this appears to be chronic -Per patient this has been an ongoing issue since she was 13 or 15 -Blood pressures are much better so we will reinitiate home Coreg at lower dose of 6.125 -Continue to monitor on telemetry -Will start anticoagulation as patient allows once appropriate from a medical standpoint Anemia -Likely related to ischemic colitis noted on colonoscopy as well as autoimmune vasculitis -Hemoglobin is down to 7.0 today -Repeat hemoglobin at noon to assess for stability -No signs of active bleeding -EGD done 01/04/2024 with no identified source of bleeding -colonoscopy done on 01/05/2024 and showed diverticulosis in the rectosigmoid colon and sigmoid colon, localized moderate inflammation in the rectosigmoid colon, sigmoid colon and descending colon consistent with ischemic colitis, biopsies were taken and pending -Will start anticoagulation once okay with gastroenterology -Biopsies reviewed and show no H. pylori on the EGD and a colonoscopy biopsy was consistent with focal colitis Esophagitis -Continue Protonix 40 mg daily Hypertension -Hypotension after procedures on 01/05/2024 -Restart home Coreg but at lower dose of 6.125 -As needed hydralazine for systolic blood pressure greater than 160 Debility/generalized weakness -PT/OT is following -patient would strongly prefer to go home if possible -Hopefully she will continue to improve once we start dialysis DVT prophylaxis -Chemoprophylaxis contraindicated will start DOAC as soon as okay with gastroenterology -Continue SCDs CODE STATUS -DNR CCA with no intubation per discussion on admission Disposition: -Nephrology would like to start rituximab on her at some point soon however we are unable to doses here due to staffing purposes and she will therefore need transfer to tertiary center. Transfer is not emergent but recommended by nephrology as soon as possible. I discussed this at length with her and he states he is not capable of making any decisions right now and would like to wait till his son gets here this evening. I discussed this further with nephrology and they felt that she would be stable during that time. She is currently on steroids. In the meantime we will have neurology see her to assess whether or not they think that her mental status is related to vasculitic process as well. Charges/Coding Visit Charges Inpatient E&M: 35673 Subs Hosp L2
[2024-01-08] MEDS: MethylPREDNISolone 1,000 MG in 0.9% Normal Saline (100mL Bag) 100 ML 100 MG IV (09:50)
[2024-01-08] MEDS: PureFlow B 2K Dialysis Soln 1 BAG 6 BAG PF (10:37)
[2024-01-08] MEDS: 0.9% Normal Saline 1,000 ML IV.SOLN. 1000 ML OPERA.SITE (10:37)
[2024-01-08] MEDS: 0.9% Saline Lock 10 ML Syringe IV ×3 (10:38→16:46)
[2024-01-08] MEDS: Heparin 10,000 UNITS/10 ML Vial IV (13:27)
--- NOTE | 2024-01-08 15:35 | NURSING ---
Report called to nurse Richy SANDERSON for pt to be tx to PCU.
--- NOTE | 2024-01-08 16:19 | PN.RENAL_ITS ---
Subjective Subjective seen on HD today, awake but still confused. Objective Data Objective Data Vital Signs: Vital Signs Temp Pulse Resp BP Pulse Ox O2 Del Method O2 Flow Rate 97.8 F 64 18 168/66 H 96 Nasal Cannula 2 01/08/24 15:24 01/08/24 15:24 01/08/24 15:24 01/08/24 15:24 01/08/24 15:24 01/08/24 15:24 01/08/24 15:24 FiO2 3 01/07/24 17:59 Oxygen Flow Rate (L/min) 2 Oxygen Delivery Method Nasal Cannula Weight: 64.1 kg Body Mass Index (BMI) 23.5 Intake & Output: Intake and Output for Last 24 Hours 01/06/24 01/07/24 01/08/24 23:59 23:59 23:59 Intake Total 804.75 / 804.75 316 / 316 116 / 116 Output Total 0 / 0 750 / 750 2300 / 2300 Balance 804.75 / 804.75 -434 / -434 -2184 / -2184 Medical Nutrition Assessment Dietitian: Malnutrition Criteria Met Start: 01/03/24 11:50 Freq: Status: Active Protocol: Document 01/08/24 09:38 SLA (Rec: 01/08/24 09:39 SLA [id number]) Nutrition Malnutrition Evidence of Malnutrition Exists Yes Malnutrition (severe): Chronic Evidenced By Suboptimal Energy Intake ( Severe),Weight Loss (Severe) Intake Problem Inadequate Oral Intake Etiology r/t GI dysfunction, altered mental status Signs/Symptoms as evidenced by current PO intake meeting <50% of estimated energy needs Status Active Problem Clinical Problem Chronic Disease or Condition Related Malnutrition Etiology severe malnutrition related to inadequate energy intake Signs/Symptoms as evidenced by unintentional 12% 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, 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 needs > 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 Status Active Problem Recommendation Dietitian Recommendations/Changes will provide 8 oz ensure clear tid w/ meals for increased nutrition if consumed; recommend advance diet as tolerated to transitional; will make additional diet recommendations as tolerance of diet is established Lab / Micro Data 01/08/24 04:31 01/08/24 04:31 Labs: Laboratory Results - last 24 hr 01/08/24 04:31: WBC 11.3 H, RBC 2.47 L, Hgb 7.0 L, Hct 22.3 L, MCV 90.3, MCH 28.3, MCHC 31.4 L, RDW Std Deviation 52.6 H, RDW Coeff of Magdalene 16.0 H, Plt Count 257, MPV 10.7, Immature Gran % (Auto) 0.700, Neut % (Auto) 87.3 H, Lymph % (Auto) 8.7 L, [place] % (Auto) 3.2, Eos % (Auto) 0.0, Baso % (Auto) 0.1, Absolute Neuts (auto) 9.9 H, Absolute Lymphs (auto) 0.98, Nucleated RBC % 0, Sodium 140, Potassium 4.8, Chloride 109 H, Carbon Dioxide 19.0 L, Anion Gap 12, BUN 89 H, Creatinine 7.66 H*, Estim Creat Clear Calc 5.53, Est GFR (MDRD) Af Amer 7 L, Est GFR (MDRD) Non-Af 6 L, BUN/Creatinine Ratio 11.6, Glucose 148 H, Calcium 8.5, Phosphorus 7.9 H, Magnesium 2.4, Total Bilirubin 0.30, AST 12 L, ALT < 6 L, Alkaline Phosphatase 84, Total Protein 5.2 L, Albumin 1.6 L, Globulin 3.6, Albumin/Globulin Ratio 0.4 L 01/08/24 07:05: Blood Type O POSITIVE, Antibody Screen NEGATIVE, Crossmatch See Detail Micro: Microbiology 01/03/24 03:00 Stool Stool Occult Blood (MASON) - Final Occult Blood Positive Radiography Diagnostic Testing: Radiology Impression Chest CT 01/06/24 15:55 IMPRESSION: Moderate bilateral pleural effusions with basilar consolidations/atelectasis. Bilateral apical mass lesions. Multiple pulmonary nodules bilaterally as noted.. Malignancy is suspected. Electronically Signed: Justin Diana DO at 17:00 EDT Reading Location ID and State: [facility] / [place] Tel [phone], Service support , Physical Exam Narrative no obvious distress no pallor no icterus no JVD s1s2 no murmurs lungs clear abdomen soft no organomegaly no edema no cyanosis Assessment & Plan Assessment/Plan (1) ANCA-associated vasculitis: (2) GRACE (acute kidney injury): PLAN: Came in with a creatinine of 11. No prior baseline available. Renal ultrasound without any hydronephrosis. 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 Discussed with pulmonary. Likely vasculitis as well but she does have history of smoking so eventually will need a biopsy. Received dialysis yesterday, received dialysis today. Neurology note reviewed. MRI ok. likely metabolic. received solumedrol day 3 today likely prednisone from tomorrow given her advanced RPGN she might benefit from plasmapheresis called and spoke to hospitalist is now agreeable for transfer I called the transfer line to [facility] PLAN: Plan
--- NOTE | 2024-01-08 19:52 | PCM.DC.SUM ---
Providers Date of Admission: 01/02/24 Date of Discharge: 01/08/24 Primary Care Physician: Jayshree Primary Care Phys Consultations 01/02/24 16:57 Consult: Nephrology Routine Consulting Provider: Adama Cagle Reason for Consult: grace vs worsenig ckd EMERGENT Consult: No Notified: Yes Date Notified: 01/02/24 Time Notified: 15:10 Method of Notification: Verbal 01/03/24 03:58 Consult: Gastroenterology Routine Consulting Provider: [facility] Reason for Consult: ABLA, GI bleed EMERGENT Consult: No Notified: Yes Date Notified: 01/03/24 Time Notified: 03:58 Method of Notification: Text 01/04/24 16:00 Consult: General Surgery Routine Consulting Provider: Michael Ashton Reason for Consult: HD catheter placement EMERGENT Consult: No Notified: Yes Date Notified: 01/04/24 Time Notified: 16:00 Method of Notification: Text 01/06/24 16:32 Consult: Teacher Aide / Pulmonary Medicine Routine Consulting Provider: Intensivists/Pulmonary Med Reason for Consult: Abn CT EMERGENT Consult: No Notified: Yes Date Notified: 01/06/24 Time Notified: 16:32 Method of Notification: Verbal 01/07/24 07:13 Consult: Interventional Radiology Routine Consulting Provider: Willam Del Angel Reason for Consult: Apical Lung Mass EMERGENT Consult: No Notified: Yes Date Notified: 01/07/24 Time Notified: 13:13 Method of Notification: Verbal 01/07/24 08:05 Consult: Tele-Neurology Routine Consulting Provider: [facility] Reason for Consult: Change in mental status EMERGENT Consult: No Notified: Yes Date Notified: 01/07/24 Time Notified: 08:06 Method of Notification: Verbal Nursing Unit Staff Notify [facility] of Tele-Neurology Consult: Yes Reason For Visit: GRACE, SVT Diagnosis Discharge Diagnosis (1) ANCA-associated vasculitis: Status: Acute Code(s): I77.82 - Antineutrophilic cytoplasmic antibody [ANCA] vasculitis (2) GRACE (acute kidney injury): Status: Acute Code(s): N17.9 - Acute kidney failure, unspecified Medications at Discharge Home Medications ascorbic acid (vitamin C) 250 mg tablet 250 mg PO DAILY 01/02/24 cholecalciferol (vitamin D3) 25 mcg (1,000 unit) capsule 25 mcg PO DAILY 01/02/24 cyanocobalamin (vitamin B-12) 1,000 mcg capsule 1,000 mcg PO DAILY 01/02/24 iron,carbonyl-vitamin C-FOS 1 tab PO DAILY 01/02/24 magnesium citrate 100 mg tablet 400 mg PO DAILY 01/02/24 multivitamin (Daily Multi-Vitamin tablet) 1 tab PO DAILY 01/02/24 Hospital Course Operations - (Tunneled dialysis catheter placement) Procedures Blood transfusion, Colonoscopy, EGD, EKG and - (CT brain/chest x-ray x 3/CT guided renal biopsy/face and sinus x-rays/CTA head and neck/MRI brain) Summary of Care Provided Minutes Spent on Discharge: 45 Hospital Course: Mrs. Agustin is a 78-year-old female who presented to the emergency department at [facility] on 01/02/2024 with about 4 weeks of decreased oral intake. On presentation she reported she not been able to get out of bed for about 3 to 4 days due to weakness. She reported feeling chills but no fever was documented nor assessed 4. She complained of a mild chronic dry cough which had not changed. She admitted that she had not been seeing a doctor for about 12 years and her last physician visit was in 2011. She also complained of decreased urine output and some frequency for about a month but denied any dysuria. She reported no urine output 3 days prior to presentation. Vital signs on presentation showed a temperature of 96.8, heart rate 93, respiratory was 18, blood pressure was 149/58 and oxygen saturation was 100% on room air. CBC showed a leukocytosis with a white count of 15.5, hemoglobin was 7.6 with no previous hemoglobin available for review and a left shift. Her chemistry showed hyponatremia with a potassium of 5.7, serum bicarb of 20 and an anion gap of 16. BUN was 123 and serum creatinine was 11.3 with no previous when available for review. Glucose was 124. Liver function was were unremarkable. Her TSH was 7.18 with a free T4 of 0.81. Coags are overtly unremarkable. CT of the brain shows chronic ischemic changes in bilateral cerebral hemispheres with no acute abnormalities. Facial CT showed no evidence of acute or chronic sinusitis, degenerative narrowing of the left TMJ with the bones appear in normal right TMJ and no evidence of mass or acute abnormality in the suprahyoid neck. Chest x-ray showed no acute cardiopulmonary pathology, changes consistent with COPD and prominent right apical pleural thickening right greater than left. Given her renal dysfunction a renal ultrasound was performed and showed no significant abnormalities. With her hypokalemia, she was admitted to the telemetry floor, given IV fluids and nephrology consult was placed. For her severe anemia gastroenterology consult was placed as well. She did require transfusion and her Hemoccult was positive. She was taken for EGD on 01/04/2024 at which time she was found to have nonsevere esophagitis with no bleeding, moderate Schatzki's ring which was dilated, small hiatal hernia and segmental moderate inflammation characterized by congestion, erosions, erythema, friability and granularity in the gastric antrum which was biopsied but no signs of acute bleeding. The duodenum was normal. Colonoscopy was performed on 01/05/2024 and showed diverticulosis in the rectosigmoid and sigmoid colon along with localized moderate inflammation in the rectosigmoid colon, colon, descending colon that was felt likely secondary to ischemic colitis. Biopsies were taken and pathology report was consistent with localized colitis. Her renal function did not improve despite aggressive hydration with no significant change from her admitting creatinine in the 11-12 range. After long discussion about options she agreed to start dialysis and consented for renal biopsy. This was also done on 01/05/2024. Her tunneled dialysis catheter was placed in conjunction with her colonoscopy to combined sedation and her renal biopsy was performed earlier in the day. Her dialysis catheter was placed on the seventh and dialysis was started on the eighth. After all of her procedures were performed she developed hypotension which was refractory to fluids. We did not want to give her excessive fluids due to her lack of urine output so she was transferred to the ICU for potential pressor utilization however she did not ever require pressors. It was felt that her brief hypotension was likely related to sedation in conjunction with decreased clearance. She also became quite confused for several days after. On 01/06/2024 the preliminary biopsies were called to nephrology and were consistent with a pauci-immune vasculitic looking changes in the kidneys so pulsed dose steroids were initiated with 1 g daily x 3 days. She was continued on dialysis and with her confusion there was concern for vasculitic encephalopathy so CTA of her head and neck along with an MRI of her brain were performed. Neurology also evaluated the patient. CTA did not show any signs of vasculitic changes. MRI of the brain showed chronic involutional changes with no acute changes and neurology evaluated the patient did not feel that she had any concern for vasculitic encephalopathy but felt that this was likely metabolic which was our initial assumption in the first place however we felt we need to be thorough and rule out vasculitic related etiologies. Rituxan was considered however we do not have the staffing for a toxin and we initiated discussion with the family on transfer. Initially they were reluctant however we did finally receive the final biopsies and 100% of her nephrons were affected by vasculitic changes. At that point Dr. Cagle from nephrology recommended transfer to tertiary center for plasmapheresis. I was able to discuss this further with both the and the son who had just arrived from [place] and they agree to transfer. Incidentally her immune lab also came back and her c-ANCA was markedly positive at 1:640. Chest x-ray was also found to be abnormal so we obtained a CT of her chest which showed apical masses with 1 on the left that was cavitary. Pulmonology was consulted and the high suspicion was these were vasculitic pulmonary related changes however CT-guided biopsy was ordered to rule out malignancy as the patient does have a history of tobacco abuse. CT-guided biopsy was scheduled for 01/08/2024 however this was not able to be obtained as there were issues with the CT scanner on the day of the procedure. Dr. Cagle arrange for transfer at [facility] and she received a bed on 01/09/2024. Her mental status did seem to be improving some throughout the 3 days while she was on steroids. She was on day 3 of 3 for steroids at the time of discharge. IA-3 and MPO antibodies were pending at the time of discharge. 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 Hypoxia-multifactorial Bilateral lung masses ANCA associated vasculitis Hyperkalemia-resolved Nonanion gap metabolic acidosis-resolved Toxic/metabolic encephalopathy Severe malnutrition Paroxysmal atrial fibrillation Anemia-multifactorial Esophagitis Hypertension Debility Generalized weakness Physical Exam Const alert, no apparent distress and average body habitus; Negative for oriented x3, no limitations, healthy appearing or well nourished Constitutional Narrative: Older, white female, sitting up in bed, more interactive and awake today however still some confusion, oriented to self and place General Appearance: cooperative, comfortable, well kempt and well developed Orientation / Consciousness: awake, oriented to person and oriented to place; Negative for oriented to time Exam Limitations: altered mental status HEENT normocephalic, head/scalp atraumatic and moist oral mucous membranes HEENT Narrative: Mild to moderate hearing loss, Mallampati is 2-3, no thrush, dentition is poor Eyes PERRL and EOMs intact bilaterally; Negative for conjunctivae normal Eyes Narrative: Conjunctiva are pale bilaterally, no scleral icterus Neck no lymphadenopathy and supple Neck Narrative: Trachea midline, no thyroid enlargement Resp normal respiratory effort, no retractions, no use of accessory muscles and clear to auscultation bilaterally Resp Narrative: Crackles in bases bilaterally Auscultation: crackles; Negative for rales, rhonchi or wheezes Cardio regular rate, S1 normal heart sound, S2 normal heart sound, no murmurs, no rub, no gallops and no clicks Cardio Narrative: Rate is currently normal but rhythm is irregularly irregular GI normal to inspection, nondistended, normoactive bowel sounds, soft to palpation and non-tender Extremity no clubbing, cyanosis or edema Extremity Narrative: Pedal pulses and radial pulses are 2+, no cyanosis or clubbing, trace bilateral lower extremity edema Skin skin turgor normal, no jaundice, no petechiae and no mottling Skin Narrative: Pale, dialysis catheter right upper chest dressing appears clean dry and intact Neuro moves all extremities and no focal motor deficits Neuro Narrative: Significant generalized weakness noted but no focal deficits identified, responses are delayed with questioning but patient is consistently following commands today Sensorium / Orientation: awake, alert, oriented to person and oriented to place; Negative for oriented to time Psych Psych Narrative: Affect is flat, patient more interactive but still confused, pleasant Medical Records Data Medical Nutrition Assessment Dietitian: Malnutrition Criteria Met Start: 01/03/24 11:50 Freq: Status: Active Protocol: Document 01/08/24 09:38 LOUISE (Rec: 01/08/24 09:39 [facility] [id number]) Nutrition Malnutrition Evidence of Malnutrition Exists Yes Malnutrition (severe): Chronic Evidenced By Suboptimal Energy Intake ( Severe),Weight Loss (Severe) Intake Problem Inadequate Oral Intake Etiology r/t GI dysfunction, altered mental status Signs/Symptoms as evidenced by current PO intake meeting <50% of estimated energy needs Status Active Problem Clinical Problem Chronic Disease or Condition Related Malnutrition Etiology severe malnutrition related to inadequate energy intake Signs/Symptoms as evidenced by 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, 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 Active Problem Recommendation Dietitian Recommendations/Changes will provide 8 oz ensure clear tid w/ meals for increased nutrition if consumed; recommend advance diet as tolerated to transitional; will make additional diet recommendations as tolerance of diet is established Weight / BMI Weight Weight: 64.1 kg Body Mass Index (BMI) 23.5 ABG / Lab / Microbiology Data 01/08/24 19:57 01/08/24 04:31 Laboratory: Laboratory Results - last 24 hr 01/08/24 04:31: WBC 11.3 H, RBC 2.47 L, Hgb 7.0 L, Hct 22.3 L, MCV 90.3, MCH 28.3, MCHC 31.4 L, RDW Std Deviation 52.6 H, RDW Coeff of Magdalene 16.0 H, Plt Count 257, MPV 10.7, Immature Gran % (Auto) 0.700, Neut % (Auto) 87.3 H, Lymph % (Auto) 8.7 L, Eddy % (Auto) 3.2, Eos % (Auto) 0.0, Baso % (Auto) 0.1, Absolute Neuts (auto) 9.9 H, Absolute Lymphs (auto) 0.98, Nucleated RBC % 0, Sodium 140, Potassium 4.8, Chloride 109 H, Carbon Dioxide 19.0 L, Anion Gap 12, BUN 89 H, Creatinine 7.66 H*, Estim Creat Clear Calc 5.53, Est GFR (MDRD) Af Amer 7 L, Est GFR (MDRD) Non-Af 6 L, BUN/Creatinine Ratio 11.6, Glucose 148 H, Calcium 8.5, Phosphorus 7.9 H, Magnesium 2.4, Total Bilirubin 0.30, AST 12 L, ALT < 6 L, Alkaline Phosphatase 84, Total Protein 5.2 L, Albumin 1.6 L, Globulin 3.6, Albumin/Globulin Ratio 0.4 L 01/08/24 07:05: Blood Type O POSITIVE, Antibody Screen NEGATIVE, Crossmatch See Detail Microbiology: Microbiology 01/03/24 03:00 Stool Stool Occult Blood (MASON) - Final Occult Blood Positive Radiography Diagnostic Testing: Radiology Impression Chest CT 01/06/24 15:55 IMPRESSION: Moderate bilateral pleural effusions with basilar consolidations/atelectasis. Bilateral apical mass lesions. Multiple pulmonary nodules bilaterally as noted.. Malignancy is suspected. Electronically Signed: Justin DO Lebron at 17:00 EDT Reading Location ID and State: [facility] / [place] Tel [phone], Service support , Meaningful Use Info Meaningful Use Meaningful Use Diagnoses (Choose all that apply): None applicable Ischemic Stroke Statin Dosing Therapy Reference: STATIN DOSE THERAPY REFERENCE: * Patients > 75 years receive moderate or high dose statin therapy. * Patients 75 years or YOUNGER should receive HIGH intensity statin dose unless contraindicated. You will be required to document reason for non-treatment if statin daily dose does not meet guidelines. HIGH DOSE STATIN THERAPY DAILY Atorvastatin > than or = to 40 mg Rosuvastatin > than or = to 20 mg Amlodipine + Atorvastatin > than or = to 2.5/40 mg Ezetimibe + Simvastatin 10/80 mg Simvastatin 80mg Discharge Plan Admission Admit Date/Time: 01/02/24 15:03 Primary Reason for Your Visit: Generalized weakness and poor appetite Attending Provider: Jena Rebolledo Primary Care Provider: Care Physician,No Primary Consulting Providers: Richi Martinez; Danis Darling; Bay Clancy; Thuy Buckner; Lali Rosen; Elidia West; Michael Ashton; Jese Redman; Miles Kendrick; Matthias Shine; Sam Buenrostro; Devon Miles; Brittney Vitale; Joaquin Garcia; Janet Chavez; Samuel,Lammaurice; Leny,Oren; Michael,Jake; Denton Sibley; Giacomo Obrien; Neftali Wynne; Willam Del Angel; Adama Cagle; Armen Alonzo; Christine Rehman; Christel Mata; Howard Stone; Ankita Guerra; Julian Pool; Michael Ross; Bakari Ortez; Juli Ndiaye; Corinajesus Gerardo; Arnol Newman; Akira Bautista; Rodney Londono; Madeline Rebolledo; Ailyn Nolasco; Bessy Dover; Adrian Singh; Ruddy Chavis; YENY NARAYANAN; Rigoberto Liz; Ally Ross Instructions Patient Instructions: LYNNE recreation aide Instructions for Kidney Biopsy Discharge Orders/Prescriptions Prescriptions: No Action multivitamin [Daily Multi-Vitamin] Tablet 1 tab PO DAILY cyanocobalamin (vitamin B-12) 1,000 mcg capsule 1,000 mcg PO DAILY cholecalciferol (vitamin D3) 25 mcg (1,000 unit) capsule 25 mcg PO DAILY iron,carbonyl-vitamin C-FOS [Chewable Iron] 1 tab PO DAILY Patient Comments: PT UNAWARE OF STRENGTH ascorbic acid (vitamin C) 250 mg tablet 250 mg PO DAILY magnesium citrate 100 mg tablet 400 mg PO DAILY Patient Comments: PT TAKES KALMASSURE WHICH IS 420MG OF MAG CITRATE Referrals / Follow Up: Care Physician,No Primary [Primary Care Provider] - NOT,DEFINED [Non-Staff] - Disposition Disposition (needs filled in before D/C Order can be placed): Acute Care Hospital Charges/Coding Visit Charges Inpatient E&M: 50412 Disch Hosp >30min
[2024-01-08 20:06] LABS: Hemoglobin 9.2 g/dL (12.0-15.0)
== END 2024-01-08 21:20 | disposition short-term general hospital (02) | DRG 299 ==
LOC: ED 15:05 → ICU 15:22 → PCU 15:46 → ICU 01-05 17:45 → PCU 01-08 19:22
PROVIDERS: Anesthesiology; Internal Medicine Critical Care Medicine; Internal Medicine Gastroenterology; Internal Medicine Nephrology; Surgery; Admitting Provider Internal Medicine; Emergency Provider Emergency Medicine; Visit Provider Internal Medicine
PROC: 0DJ08ZZ Inspection of Upper Intestinal Tract, Via Natural or Artificial Opening Endoscopic (ICD-10-PCS; CPT 43235; principal; 2024-01-04 11:55)
PROC: 0JH63XZ Insertion of Tunneled Vascular Access Device into Chest Subcutaneous Tissue and Fascia, Percutaneous Approach (ICD-10-PCS; principal; 2024-01-05 12:15)
PROC: 0DJD8ZZ Inspection of Lower Intestinal Tract, Via Natural or Artificial Opening Endoscopic (ICD-10-PCS; CPT 45378; principal; 2024-01-05 12:25)
DX: I77.82 Antineutrophilic cytoplasmic antibody [ANCA] vasculitis (principal); E43 Unspecified severe protein-calorie malnutrition; G92.8 Other toxic encephalopathy; K55.9 Vascular disorder of intestine, unspecified; E87.20 Acidosis, unspecified; E87.1 Hypo-osmolality and hyponatremia; N17.9 Acute kidney failure, unspecified; J90 Pleural effusion, not elsewhere classified; J98.11 Atelectasis; I47.10 Supraventricular tachycardia, unspecified; D63.1 Anemia in chronic kidney disease; F03.90 Unspecified dementia, unspecified severity, without behavioral disturbance, psychotic disturbance, mood disturbance, and anxiety; J44.9 Chronic obstructive pulmonary disease, unspecified; I48.0 Paroxysmal atrial fibrillation; I12.9 Hypertensive chronic kidney disease with stage 1 through stage 4 chronic kidney disease, or unspecified chronic kidney disease; Z99.2 Dependence on renal dialysis; N18.9 Chronic kidney disease, unspecified; E87.5 Hyperkalemia; K29.70 Gastritis, unspecified, without bleeding; J92.9 Pleural plaque without asbestos; D50.9 Iron deficiency anemia, unspecified; K44.9 Diaphragmatic hernia without obstruction or gangrene; E87.6 Hypokalemia; K20.90 Esophagitis, unspecified without bleeding; K57.30 Diverticulosis of large intestine without perforation or abscess without bleeding; K52.9 Noninfective gastroenteritis and colitis, unspecified; Z95.828 Presence of other vascular implants and grafts; Z87.891 Personal history of nicotine dependence; R53.81 Other malaise; Z66 Do not resuscitate; E07.81 Sick-euthyroid syndrome; R09.02 Hypoxemia; Z68.22 Body mass index [BMI] 22.0-22.9, adult
CPT/HCPCS: 36415; 36600; 70450; 70486; 70496; 70498; 70551; 71045; 71046; 71250; 76770; 77001; 77012; 80048; 80053; 80076; 82274; 82784; 82803; 83520; 83735; 84100; 84439; 84443; 85014; 85018; 85025; 85027; 85610; 85730; 86160; 86225; 86256; 86334; 86850; 86900; 86901; 86920; 86922; 87340; 88300; 88305; 88342; 88346; 90937; 93005; 94640; 95819; 97163; 97166; 97530; 97802; 97803; 99156; 99157; 99252; 99285; C1894; J7030; J7040; P9016; Q9967; A4216; C1750; G0257; G0463; J2405; J2919

== ENCOUNTER → 2024-03-21 | Outpatient (CLI) | payer MEDICARE, SELFPAY | END | disposition home or self-care (01) | PROVIDERS: PCP Nurse Practitioner Family; Referring Provider Family Medicine; Visit Provider Family Medicine | DX: I77.82 Antineutrophilic cytoplasmic antibody [ANCA] vasculitis (principal) | CPT/HCPCS: 36415 ==

== ENCOUNTER → 2024-03-24 | Outpatient (CLI) | payer MEDICARE, SELFPAY ==
--- NOTE | 2024-03-24 13:17 | CT_ITS ---
STUDY: CT CHEST WITHOUT CONTRAST REASON FOR EXAM: Female, 78 years old. F/U PULM NODULES RADIATION DOSAGE (If Supplied By Facility): CTDIvol = ( 6.33 ) mGy, DLP = ( 227.65 ) mGycm TECHNIQUE: Transaxial imaging was performed without the administration of intravenous contrast material. Multiplanar coronal and sagittal images were reformatted. Individualized dose optimization techniques were used for this CT. COMPARISON: Comparison is made with prior study of January 06, 2024. FINDINGS: CHEST A right-sided double-lumen catheter is seen with tip in the superior vena cava. Since prior study, there has been improvement in the previously seen irregular nodular density in the right lung apex. It presently measures 2.7 cm x 0.7 cm. The previously seen partially cystic mass in the anterior left lung apex has become cystic at this time. It presently measures 2.6 cm x 3.2 cm. Mild linear scarring at the right lung base. The previously seen bilateral pleural effusions and bibasilar infiltrates have resolved. There are calcifications of the coronary arteries. Normal mediastinum. Normal hilar regions. Normal unenhanced pulmonary arteries. Normal aorta arch and descending thoracic aorta. There is demineralization of the thoracic spine. Loss of height of the T11 vertebrae. Stable 1 cm cyst in the medial aspect of the right hepatic lobe superiorly. CT/Chest without Contrast IMPRESSION: Marked improvement as compared to prior study. Residual changes persist at the right lung apex. Cystic density we placed a solid mass in the left lung apex. Further follow-up recommended. Electronically Signed: Willam Del Angel MD at 14:56 EDT ,
== END | disposition home or self-care (01) ==
PROVIDERS: PCP Nurse Practitioner Family; Referring Provider Family Medicine; Visit Provider Family Medicine
DX: R91.8 Other nonspecific abnormal finding of lung field (principal)
CPT/HCPCS: 71250

== ENCOUNTER 2024-04-06 08:35 | Emergency (ER) | payer MEDICARE, SELFPAY ==
[2024-04-06 08:37] VITALS: BP 105/53; PULSE 97; RESP 20; TEMP 36.8; O2SAT 95; BMI 21.6
--- NOTE | 2024-04-06 08:56 | EKG12_ITS ---
Test Reason : DIZZINESS Blood Pressure : / mmHG Vent. Rate : 089 BPM Atrial Rate : 089 BPM P-R Int : 178 ms QRS Dur : 144 ms QT Int : 378 ms P-R-T Axes : 012 -74 -09 degrees QTc Int : 459 ms Sinus rhythm with occasional Premature ventricular complexes and Fusion complexes Left axis deviation Right bundle branch block Abnormal ECG Confirmed by Michael Bergeron ([id number]), editorial manager VANNA THOMAS ([id number]) on 04/07/2024 9:12:04 AM Referred By: BRIAN/IQRA Confirmed By:Michael Bergeron
--- NOTE | 2024-04-06 08:59 | EDS_ITS ---
HPI History of Present Illness Chief Complaint: Dizziness Narrative Narrative: 78-year-old female presents with her significant other because of dizziness that began this morning. However, her significant other states that she has been having dizzy spells over the last few days. Last night she went to bed and everything was fine. When she tried to get up this morning, she states that she had a sensation that the room was spinning. She denies any headache, no paresthesias, no chest pain or shortness of breath. No nausea or vomiting associated with this. 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 She does still make urine. However, although she gets dialysis every Thursday, Thursday, and Thursday, she did not go today because she felt very dizzy. They told her on Thursday though that she had reached her dry weight. No fevers or chills, no other symptoms. [id number] Medical History Hyperkalemia Home Medications ?Medication ?Instructions ?Recorded ?Last Taken ?Type ascorbic acid (vitamin C) 250 mg 250 mg PO DAILY 01/02/24 Unknown History tablet cholecalciferol (vitamin D3) 25 25 mcg PO DAILY 01/02/24 Unknown History mcg (1,000 unit) capsule cyanocobalamin (vitamin B-12) 1,000 mcg PO DAILY 01/02/24 Unknown History 1,000 mcg capsule iron,carbonyl-vitamin C-FOS 1 tab PO DAILY 01/02/24 Unknown History magnesium citrate 100 mg tablet 400 mg PO DAILY 01/02/24 Unknown History multivitamin (Daily Multi-Vitamin 1 tab PO DAILY 01/02/24 Unknown History tablet) Allergy/AdvReac Type Severity Reaction Status Date / Time No Known Allergies Allergy Verified 04/06/24 08:43 Surgical History S/P dialysis catheter insertion Social History Smoking Status: Former smoker ROS ROS ED ROS Narrative Constitutional: No fever, no chills. HEENT: No sore throat. No neck pain. No loss of vision. No rhinorrhea. Cardiovascular: No chest pain. No palpitations. No pedal edema. Respiratory: No cough, no shortness of breath. Abdominal: No abdominal pain. No nausea. No vomiting. Genitourinary: No dysuria. No hematuria. Musculoskeletal: No myalgias. No arthralgias. Neurologic: No headaches. Positive dizziness. No lightheadedness. Skin: No rash. No change in color. Psychiatric: No depression. No anxiety. EXAM Physical Exam Narrative Exam Narrative: Afebrile. Vital signs noted. HEENT: Normocephalic. Atraumatic. PERRL, EOMI. Neck soft and supple. No point tenderness or step off. Cardiovascular: Regular rate and rhythm. No murmurs, rubs, or gallops appreciated. Respiratory: No tachypnea. Lungs clear to auscultation bilaterally. Gastrointestinal: Abdomen soft, nontender, with normoactive bowel sounds. No rebound or guarding. Neurological: Awake. Alert. Nonfocal, nonlateralizing. Normal [id number] bilaterally. Cerebellar function normal as tested. No nystagmus. Skin: No rash. Normal color. No pallor. Musculoskeletal: No pedal edema. Full range of motion extremities. Const Vital Signs: 04/06/24 08:37 04/06/24 10:35 Temperature 98.3 F Temperature Source Temporal Pulse Rate 97 86 Respiratory Rate 20 H 18 Blood Pressure 105/53 L 116/85 H Blood Pressure Mean 70 95 Pulse Ox 95 93 Oxygen Delivery Method Room Air Room Air MDM [facility] Narrative Medical decision making narrative: Differential diagnosis includes but not limited to dehydration versus electrolyte imbalance versus intravascular volume depletion. I have very low suspicion for stroke as she has a normal, nonfocal exam. I do not feel CT of the brain is indicated. Her blood pressure did drop to 97 systolic and initially was only 105 systolic. She will be given a small 500 mL bolus and CBC, CMP, UA, and EKG checked. Feel her dizziness would be from ACS or dysrhythmia although she does have history of SVT listed in her problem list. EKG was obtained and interpreted by myself independently as normal sinus rhythm with PVCs but no acute ST changes. No STEMI. I do not feel that a dysrhythmia or ACS is the cause of her reported dizziness. I reviewed her laboratory work and she has a neutropenia of 3.3 which she states she has had in the past, hemoglobin stable at 11.1, platelet count low at 138. She has had recent thrombocytopenia. Electrolyte panel was grossly unremarkable with a normal potassium, creatinine elevated above 4 consistent with her end-stage renal disease. BUN elevated at 43 with normal sodium. Urinalysis was obtained and reviewed, there are no ketones, while she does have 2+ bacteria there are 0 white cells/0-5. I do not feel antibiotics are indicated. She is not having dysuria. Upon repeat examination, she is able to stand and sit at the bedside commode. She feels slightly improved. I discussed the patient with the mine promotor on for Dr. Cagle who agrees that she can be discharged to have her dialysis on Thursday, 2 days from now as scheduled. She feels improved and would like to be discharged. I feel she can be discharged to follow-up. Return instructions to the emergency department were reviewed. Additionally, I had discussed the use of meclizine with her, but she is not having other vertiginous type symptoms and feels improved so she declined any medication. Disposition is discharged home in stable condition. History & Record Review Discussion w/independent historian: Patient Additional record(s) reviewed:: Prior labs Lab Data Attestation: I reviewed the patient's lab results. Labs: Laboratory Results - last 24 hr 04/06/24 04/06/24 04/06/24 09:20 09:20 10:09 WBC Cancelled 3.3 L Corrected WBC Cancelled RBC Cancelled 3.40 L Hgb Cancelled 11.1 L Hct Cancelled 34.8 L MCV Cancelled 102.4 H MCH Cancelled 32.6 H MCHC Cancelled 31.9 L RDW Std Deviation Cancelled 52.2 H RDW Coeff of Magdalene Cancelled 13.8 Plt Count Cancelled 138 L MPV Cancelled 9.8 Immature Gran % (Auto) Cancelled 3.000 H Neut % (Auto) Cancelled 54.9 Lymph % (Auto) Cancelled 30.2 [place] % (Auto) Cancelled 11.6 H Eos % (Auto) Cancelled 0.0 Baso % (Auto) Cancelled 0.3 Absolute Neuts (auto) Cancelled 1.8 L Absolute Lymphs (auto) Cancelled 0.99 Total Counted Cancelled Neutrophils % (Manual) Cancelled Band Neutrophils % Cancelled Lymphocytes % (Manual) Cancelled Monocytes % (Manual) Cancelled Eosinophils % (Manual) Cancelled Basophils % (Manual) Cancelled Metamyelocytes % Cancelled Myelocytes % Cancelled Promyelocytes % Cancelled Blast Cells % Cancelled Plasma Cell % (Manual) Cancelled Other Cells % Cancelled Nucleated RBC % Cancelled 0 Nucleated RBCs/100 WBC Cancelled Differential Comment Cancelled Diff Path Review Cancelled Hypersegmented Neuts Cancelled Atypical Lymphocytes Cancelled Reactive Lymphocytes Cancelled Smudge Cells Cancelled Toxic Granulation Cancelled Toxic Vacuolation Cancelled Dohle Bodies Cancelled Reed Rods Cancelled Platelet Estimate Cancelled Plt Morphology Comment Cancelled RBC Morphology Cancelled Cancelled Polychromasia Cancelled Hypochromasia Cancelled Basophilic Stippling Cancelled Anisocytosis Cancelled Microcytosis Cancelled Macrocytosis Cancelled Spherocytes Cancelled Sickle Cells Cancelled Target Cells Cancelled Tear Drop Cells Cancelled Ovalocytes Cancelled Stomatocytes Cancelled [place] Bodies Cancelled Stephanie Cells Cancelled Bite Cells Cancelled Crenated Cell Cancelled Acanthocytes (Spur) Cancelled Rouleaux Cancelled Schistocytes Cancelled Sodium 141 Potassium 4.2 Chloride 102 Carbon Dioxide 29.0 Anion Gap 10 BUN 43 H Creatinine 4.81 H Estim Creat Clear Calc 8.81 Est GFR (MDRD) Af Amer 11 L Est GFR (MDRD) Non-Af 9 L BUN/Creatinine Ratio 8.9 L Glucose 88 Calcium 8.2 L Total Bilirubin 0.30 AST 14 L ALT 12 L Alkaline Phosphatase 76 Total Protein 5.2 L Albumin 2.4 L Globulin 2.8 Albumin/Globulin Ratio 0.9 Urine Color Urine Clarity Urine pH Ur Specific [place] Urine Protein Urine Glucose (UA) Urine Ketones Urine Occult Blood Urine Nitrite Urine Bilirubin Urine Urobilinogen Ur Leukocyte Esterase Urine RBC Urine WBC Ur Squamous Epith Cells Urine Bacteria Urine Mucus 04/06/24 10:35 WBC Corrected WBC RBC Hgb Hct MCV MCH MCHC RDW Std Deviation RDW Coeff of Magdalene Plt Count MPV Immature Gran % (Auto) Neut % (Auto) Lymph % (Auto) [place] % (Auto) Eos % (Auto) Baso % (Auto) Absolute Neuts (auto) Absolute Lymphs (auto) Total Counted Neutrophils % (Manual) Band Neutrophils % Lymphocytes % (Manual) Monocytes % (Manual) Eosinophils % (Manual) Basophils % (Manual) Metamyelocytes % Myelocytes % Promyelocytes % Blast Cells % Plasma Cell % (Manual) Other Cells % Nucleated RBC % Nucleated RBCs/100 WBC Differential Comment Diff Path Review Hypersegmented Neuts Atypical Lymphocytes Reactive Lymphocytes Smudge Cells Toxic Granulation Toxic Vacuolation Dohle Bodies Reed Rods Platelet Estimate Plt Morphology Comment RBC Morphology Polychromasia Hypochromasia Basophilic Stippling Anisocytosis Microcytosis Macrocytosis Spherocytes Sickle Cells Target Cells Tear Drop Cells Ovalocytes Stomatocytes [place] Bodies Stephanie Cells Bite Cells Crenated Cell Acanthocytes (Spur) Rouleaux Schistocytes Sodium Potassium Chloride Carbon Dioxide Anion Gap BUN Creatinine Estim Creat Clear Calc Est GFR (MDRD) Af Amer Est GFR (MDRD) Non-Af BUN/Creatinine Ratio Glucose Calcium Total Bilirubin AST ALT Alkaline Phosphatase Total Protein Albumin Globulin Albumin/Globulin Ratio Urine Color Yellow Urine Clarity Sl. Cloudy Urine pH 8.0 Ur Specific [place] 1.010 Urine Protein 100 H Urine Glucose (UA) Normal Urine Ketones Negative Urine Occult Blood Negative Urine Nitrite Negative Urine Bilirubin Negative Urine Urobilinogen Normal Ur Leukocyte Esterase 100 H Urine RBC 0 SEEN Urine WBC 0-5 SEEN Ur Squamous Epith Cells 0-5 SEEN Urine Bacteria 2+ Urine Mucus 1+ Discharge Plan Triage Chief Complaint: Dizziness ED Provider: Ruel Rivera Dx/Rx/DC Orders Clinical Impression: Dizziness, ESRD on dialysis Instructions: ED Dizziness, Uncertain Cause Prescriptions: No Action multivitamin [Daily Multi-Vitamin] Tablet 1 tab PO DAILY cyanocobalamin (vitamin B-12) 1,000 mcg capsule 1,000 mcg PO DAILY cholecalciferol (vitamin D3) 25 mcg (1,000 unit) capsule 25 mcg PO DAILY iron,carbonyl-vitamin C-FOS [Chewable Iron] 1 tab PO DAILY Patient Comments: PT UNAWARE OF STRENGTH ascorbic acid (vitamin C) 250 mg tablet 250 mg PO DAILY magnesium citrate 100 mg tablet 400 mg PO DAILY Patient Comments: PT TAKES KALMASSURE WHICH IS 420MG OF MAG CITRATE Primary Care Provider: Jorge Garcia Referrals: Goldie Eugene NP-C [Non-Staff] - Activity Restrictions/Additional Instructions: Have your dialysis on Thursday as scheduled. Return with new or worsening symptoms. Print Language: Portuguese Disposition Disposition: Home, Self Care
[2024-04-06] MEDS: 0.9% Normal Saline (500mL Bag) 500 ML 999 ML IV (09:26)
--- NOTE | 2024-04-06 09:36 | NURSING ---
CBCD NEEDS REDRAWN, CLOTTED
[2024-04-06 09:46] LABS: ALB/GLOB Ratio 0.9 RATIO (0.9-2.4); AST(SGOT) 14 U/L (15-37); Alanine Aminotransfer ALT/SGPT 12 U/L (13-56); Albumin, Serum 2.4 g/dL (3.2-5.0); Alkaline Phosphatase 76 U/L (45-117); Anion Gap 10 (5-15); BUN 43 mg/dL (7-18); BUN/Creat Ratio 8.9 RATIO (10-20); Calcium,Total 8.2 mg/dL (8.5-10.1); Chloride 102 mmol/L (98-107); Creatinine, Serum 4.81 mg/dL (0.55-1.02); EST Glomerular Filtration Rate 9 mL/min (>60); Est Glom Filt Rate - Afr Amer 11 mL/min (>60); Estimated Creatinine Clearance 8.81 ml/min; Globulin 2.8 g/dL (2.2-4.2); Glucose 88 mg/dL (74-106); Potassium 4.2 mmol/L (3.5-5.1); Protein, Total 5.2 g/dL (6.4-8.2); Sodium Level 141 mmol/L (136-145)
[2024-04-06 10:18] LABS: Absolute Lymphocyte Count 0.99 X10^3/uL (0.83-4.51); Absolute Neutrophil Count 1.8 X10^3/uL (2.0-7.7); Basophil# 0.01 X10^3/uL; Basophil% 0.3 % (0-1); Hematocrit 34.8 % (37-47); Hemoglobin 11.1 g/dL (12.0-15.0); Lymphocyte # 0.99 X10^3/ul (0.83-4.51); Lymphocyte % 30.2 % (19-41); Mean Corp Hgb Conc 31.9 g/dL (32-36); Mean Corpuscular Hgb 32.6 pg (27.0-32.0); Mean Corpuscular Volume 102.4 fL (81-99); Mean Platelet Vol. 9.8 fl (6.2-12.0); Monocyte# 0.38 X10^3/uL; Monocyte% 11.6 % (0-10); NRBC Flagged by Analyzer 0 % (0-5); Neutrophil % 54.9 % (47-70); Platelet Count 138 K/mm3 (150-450); RBC Distribution Width CV 13.8 % (11.6-14.6); RBC Distribution Width SD 52.2 fl (35.1-43.9); White Blood Count 3.3 K/mm3 (4.4-11.0)
[2024-04-06 10:35] VITALS: BP 116/85; PULSE 86; RESP 18; O2SAT 93
[2024-04-06 10:40] LABS: Red Blood Cells-Urine 0 SEEN /hpf (0-5)
[2024-04-06 10:41] LABS: Color, Urine Yellow (Yellow); Glucose, Dipstick Normal (Normal); Ketone-Dipstick Negative (Negative); Leukocyte Esterase-Dipstick 100 /ul (Negative); Nitrite-Dipstick Negative (Negative); Occult Blood-Urine Negative /ul (Negative); Protein-Dipstick 100 mg/dl (Negative); Urine Bilirubin Dipstick Negative (Negative); Urine Clarity Sl. Cloudy (Clear); Urine Urobilinogen Normal (Normal)
[2024-04-06 10:49] LABS: Bacteria 2+ /hpf (None Seen); Mucous, Urine 1+ /hpf (<or=2+); Squamous Epithelial Cells - UA 0-5 SEEN /hpf (5-10); White Blood Cells 0-5 SEEN /hpf (0-5)
[2024-04-06 11:27] VITALS: BP 110/54; PULSE 81; RESP 18; TEMP 36.6; O2SAT 98
== END 2024-04-06 11:38 | disposition home or self-care (01) ==
PROVIDERS: Emergency Provider Emergency Medicine; PCP Family Medicine; Visit Provider Emergency Medicine
DX: R42 Dizziness and giddiness (principal); N18.6 End stage renal disease; Z99.2 Dependence on renal dialysis; Z87.891 Personal history of nicotine dependence
CPT/HCPCS: 36415; 80053; 81001; 85025; 93005; 96360; 99283; J7040

== ENCOUNTER 2024-04-16 18:55 | Observation (INO) | payer MEDICARE, SELFPAY ==
[2024-04-16] VITALS (7 sets, daily range): BP systolic 105–134; BP diastolic 54–79; PULSE 61–105; RESP 16–18; TEMP 35.8–36.5; O2SAT 93–98; BMI 21.1; BMI 20.3
--- NOTE | 2024-04-16 19:13 | EKG12_ITS ---
Test Reason : WEAKNESS Blood Pressure : / mmHG Vent. Rate : 063 BPM Atrial Rate : 063 BPM P-R Int : 206 ms QRS Dur : 154 ms QT Int : 504 ms P-R-T Axes : 005 -70 007 degrees QTc Int : 515 ms Sinus rhythm with Premature supraventricular complexes and with occasional Premature ventricular comp lexes Left axis deviation Right bundle branch block Inferior infarct , age undetermined Abnormal ECG Confirmed by AFIA SMYTH, RISHABH ([id number]), editor house organ MARCUS NEGRETE ([id number]) on 04/22/2024 6:17:35 AM Referred By: Confirmed By:NAHUM OREILLY MD
--- NOTE | 2024-04-16 19:14 | EX.ED.DYSGE1 ---
HPI History of Present Illness Chief Complaint: Weakness Informant: patient and spouse/S.O. Narrative Narrative: Presents by EMS from home spouse is currently present. Increasing weakness for the past 3 weeks. Diagnosed with vasculitis this past December with renal failure dialysis was started then. She is followed by Dr. Cagle. Reports still making urine. States due to weakness over the last week has laid in bed. She did not recall the last time she had a bowel movement or urinated. Significant other was hard of hearing is present, he states has been more than a week. He has not helped her out of bed. She states she has not gotten out of bed. Reported symptoms started after they weaned her off her prednisone. She states she had leftover prednisone tried taking 1 dose with no improvement. She was seen in the ED 10 days ago for weakness and dizziness. She reported able to ambulate at that time. Significant other states unable to care for at home at this current state. Her last dialysis was this past Thursday, missed yesterday due to inability to get her to the facility. She denies any cough. Denies vomiting or diarrhea. Denies fevers or chills. [facility] Medical History (Updated 04/17/24 @ 01:[address] Jose Felix DO) Kidney disease Dialysis patient Former smoker Hyperkalemia Home Medications ?Medication ?Instructions ?Recorded ?Last Taken ?Type ascorbic acid (vitamin C) 250 mg 250 mg PO DAILY 01/02/24 Unknown History tablet cholecalciferol (vitamin D3) 25 25 mcg PO DAILY 01/02/24 Unknown History mcg (1,000 unit) capsule cyanocobalamin (vitamin B-12) 1,000 mcg PO DAILY 01/02/24 Unknown History 1,000 mcg capsule iron,carbonyl-vitamin C-FOS 1 tab PO DAILY 01/02/24 Unknown History carvedilol 6.25 mg tablet 6.25 mg PO BID 04/16/24 Unknown History pantoprazole 40 mg tablet,delayed 40 mg PO DAILY 04/16/24 Unknown History release Allergy/AdvReac Type Severity Reaction Status Date / Time No Known Allergies Allergy Verified 04/16/24 19:07 Surgical History S/P dialysis catheter insertion Social History Smoking Status: Former smoker ROS ROS ED Constitutional Constitutional ED: Denies chills, fever(s) or sweats Eyes Eyes: Denies change in vision ENT ENT ED: Denies dysphagia or sore throat Cardiovascular Cardiovascular: Denies chest pain, leg edema, palpitations or racing heartbeat Respiratory/Chest Respiratory/Chest: Denies cough, dyspnea or dyspnea on exertion Gastrointestinal Gastrointestinal: Denies abdominal pain, diarrhea, nausea or vomiting Genitourinary Genitourinary ED: Denies dysuria, hematuria or urinary frequency Musculoskeletal Musculoskeletal: Denies back pain, extremity pain or neck pain Integumentary Denies rash or wounds Neurologic Neurologic: Reports weakness; Denies headache(s) or paresthesias EXAM Physical Exam Const Vital Signs: 04/16/24 18:58 04/16/24 19:04 04/16/24 19:05 Temperature 96.5 F L 97.7 F L Temperature Source Temporal Temporal Pulse Rate 74 103 H Respiratory Rate 16 18 Respiratory Effort Normal Non-Labored Respiratory Pattern Normal Blood Pressure 134/55 H 113/65 Blood Pressure Mean 81 81 Pulse Ox 93 98 Oxygen Delivery Method Room Air Room Air 04/16/24 20:04 04/16/24 21:00 04/16/24 21:30 Temperature 97.6 F L 97.7 F L 97.6 F L Temperature Source Temporal Temporal Temporal Pulse Rate 105 H 61 73 Respiratory Rate 17 17 18 Respiratory Effort Respiratory Pattern Blood Pressure 115/79 110/54 L 111/54 L Blood Pressure Mean 91 70 72 Pulse Ox 98 96 Oxygen Delivery Method Room Air 04/16/24 22:00 04/16/24 22:13 Temperature 97.6 F L 97.6 F L Temperature Source Temporal Pulse Rate 64 65 Respiratory Rate 16 18 Respiratory Effort Respiratory Pattern Blood Pressure 105/56 L 105/56 L Blood Pressure Mean 72 72 Pulse Ox 95 96 Oxygen Delivery Method Positive well nourished and well developed General Appearance ED: well developed and NAD HEENT Reports moist mucous membranes normocephalic and atraumatic Eyes EOMs intact bilaterally and conjunctivae normal General Eye ED: Yes pale conjunctiva Neck no lymphadenopathy and supple General: Negative for tenderness Chest Wall Chest: Negative for tenderness Resp normal respiratory effort and normal air movement Effort and Inspection: symmetric chest movement; Negative for respiratory distress Cardio regular rate, regular rhythm and no murmurs Peripheral Pulses: pulses 2+ throughout GI normal to inspection, nondistended, normoactive bowel sounds GI Narrative: Suprapubic tenderness on exam. No guarding or rebound. Palpation: Negative for guarding or rebound tenderness present Back/Spine no CVA tenderness and no thoracic nor lumbar tenderness Extremity normal to inspection General Extremety ED: Negative for edema or tenderness General Extremity: Negative for edema Neuro oriented x3 and no sensory deficits noted Sensorium / Orientation: awake and alert Skin no rashes or lesions noted and no wounds MDM MDM MDM Narrative Medical decision making narrative: Interventions / MDM: Differential diagnosis: Weakness, dialysis, electrolyte abnormalities, anemia Diagnosis considered but do not suspect: N/A My EKG interpretation: Sinus rate 63, PVC, right bundle branch block. No ST changes. Similar findings from EKG earlier this month. Imaging independently reviewed and interpreted by myself: N/A External documents reviewed: N/A Test considered but not ordered:N/A ED course: Patient reports weakness and inability to ambulate for the last week and skin other unable to care for her. She missed dialysis yesterday. EKG labs ordered she has suprapubic tenderness until last time to urinate. Will straight catheter urine as she reported history of urine output. Per nursing patient declined a straight catheterization of urine. Bladder scan ordered was 103 mL. Labs noted pancytopenia with stable white count 2.6 hemoglobin 8.8, 10 days ago noted to be 11 however previous to that it was similar to these findings. Platelets 123. Creatinine 6.17 BUN 65 her potassium 3.8. She is dialysis patient. Due to weakness since spouse unable to care for her, I did discuss with hospitalist Dr. Sheppard for admission. Re-evaluation: stable Disposition discussed with patient/family/significant other: Patient and seeking other Case discussed with consulting clinician: Hospitalist This note was generated with [employer] dictation software. It may contain incorrect words, spelling, and punctuation that were not noted in checking the note before signing. Lab Data Attestation: I reviewed the patient's lab results. Labs: Laboratory Results - last 24 hr 04/16/24 19:16 WBC 2.6 L RBC 2.81 L Hgb 8.8 L Hct 27.7 L MCV 98.6 MCH 31.3 MCHC 31.8 L RDW Std Deviation 51.0 H RDW Coeff of Magdalene 13.9 Plt Count 123 L MPV 12.3 H Immature Gran % (Auto) 1.200 H Neut % (Auto) 51.2 Lymph % (Auto) 30.4 [place] % (Auto) 16.0 H Eos % (Auto) 0.0 Baso % (Auto) 1.2 H Absolute Neuts (auto) 1.3 L Absolute Lymphs (auto) 0.78 L Nucleated RBC % 0 Differential Comment SCANNED Sodium 135 L Potassium 3.8 Chloride 95 L Carbon Dioxide 25.0 Anion Gap 15 BUN 65 H Creatinine 6.17 H Estim Creat Clear Calc 6.87 Est GFR (MDRD) Af Amer 9 L Est GFR (MDRD) Non-Af 7 L BUN/Creatinine Ratio 10.5 Glucose 105 Calcium 8.1 L Discharge Plan Dx/Rx/DC Orders Clinical Impression: Weakness, Pancytopenia, End-stage renal disease on hemodialysis Disposition Disposition: [facility] Discharge Date/Time: 04/16/24 23:20
[2024-04-16 19:22] LABS: Absolute Lymphocyte Count 0.78 X10^3/uL (0.83-4.51); Absolute Neutrophil Count 1.3 X10^3/uL (2.0-7.7); Basophil# 0.03 X10^3/uL; Basophil% 1.2 % (0-1); Hematocrit 27.7 % (37-47); Hemoglobin 8.8 g/dL (12.0-15.0); Lymphocyte # 0.78 X10^3/ul (0.83-4.51); Lymphocyte % 30.4 % (19-41); Mean Corp Hgb Conc 31.8 g/dL (32-36); Mean Corpuscular Hgb 31.3 pg (27.0-32.0); Mean Corpuscular Volume 98.6 fL (81-99); Mean Platelet Vol. 12.3 fl (6.2-12.0); Monocyte# 0.41 X10^3/uL; NRBC Flagged by Analyzer 0 % (0-5); Neutrophil # 1.32 X10^3/uL (2.7-7.7); Neutrophil % 51.2 % (47-70); POSITIVE MORPHOLOGY YES; Platelet Count 123 K/mm3 (150-450); RBC Distribution Width CV 13.9 % (11.6-14.6); Red Blood Count 2.81 M/mm3 (4.2-5.4); White Blood Count 2.6 K/mm3 (4.4-11.0)
[2024-04-16 19:27] LABS: Differential Indicated SCAN CRITERIA MET
[2024-04-16 19:40] LABS: Anion Gap 15 (5-15); BUN 65 mg/dL (7-18); BUN/Creat Ratio 10.5 RATIO (10-20); Calcium,Total 8.1 mg/dL (8.5-10.1); Chloride 95 mmol/L (98-107); Creatinine, Serum 6.17 mg/dL (0.55-1.02); EST Glomerular Filtration Rate 7 mL/min (>60); Est Glom Filt Rate - Afr Amer 9 mL/min (>60); Estimated Creatinine Clearance 6.87 ml/min; Glucose 105 mg/dL (74-106); Potassium 3.8 mmol/L (3.5-5.1); Sodium Level 135 mmol/L (136-145)
[2024-04-16 20:05] LABS: Differential Comment SCANNED
--- NOTE | 2024-04-16 22:10 | HP.PCM.HOS_ITS ---
[facility] - General General Date of Admission: 04/16/24 Date of Service: 04/16/24 Chief Complaint: Very Weak for the Past Week with Inability to Ambulate. HPI Narrative DIAN AGUSTIN, is a 78 F with a past medical history of ANCA- associated vasculitis causing severe GRACE, ESRD on HD; (M-W-F), chronic anemia, history of SVT, history of metabolic encephalopathy and OA who presents to [facility] ER complaining of feeling very weak with inability to ambulate. Mrs. Agustin reports her symptoms began approximately one week prior to admission with the gradual-onset of progressively worsening generalized weakness with ambulatory dysfunction. Her condition is so severe that she actually missed her HD session yesterday. Her beloved can no longer care for her at home because she needs constant help and monitoring so they decided to come in for further evaluation and treatment. She denies associated fever, chills, nausea, vomiting, diarrhea, constipation, chest pain or SOB but she does admit to an increase in her chronic pain that is adding to her difficulty in trying to ambulate. In the ER she was diagnosed with Generalized Weakness with Ambulatory Dysfunction complicated by ANCA- associated vasculitis causing severe GRACE and subsequent ESRD on HD with recently missed HD session yesterday and she was then admitted to the general medical floor under observation status for ongoing care for a stay that is expected to be less than 2 midnights. [facility] Medical History (Updated 04/17/24 @ 01:[address] Danis Acuna, DO) Kidney disease Dialysis patient Former smoker Hyperkalemia Home Medications ?Medication ?Instructions ?Recorded ?Last Taken ?Type ascorbic acid (vitamin C) 250 mg 250 mg PO DAILY 01/02/24 Unknown History tablet cholecalciferol (vitamin D3) 25 25 mcg PO DAILY 01/02/24 Unknown History mcg (1,000 unit) capsule cyanocobalamin (vitamin B-12) 1,000 mcg PO DAILY 01/02/24 Unknown History 1,000 mcg capsule iron,carbonyl-vitamin C-FOS 1 tab PO DAILY 01/02/24 Unknown History carvedilol 6.25 mg tablet 6.25 mg PO BID 04/16/24 Unknown History pantoprazole 40 mg tablet,delayed 40 mg PO DAILY 04/16/24 Unknown History release Allergy/AdvReac Type Severity Reaction Status Date / Time No Known Allergies Allergy Verified 04/16/24 19:07 Surgical History S/P dialysis catheter insertion Social History Smoking Status: Former smoker ROS ROS Narrative Review of Systems: Constitutional: Patient denies fever, chills or weight loss. Eyes: Patient denies changes in vision or discharge from eyes. ENT: Patient denies runny nose, sore throat or ear pain. CV: Patient denies chest pain, palpitations or heart racing. Resp: Patient denies SOB or cough. GI: Patient denies abdominal pain, nausea, vomiting, diarrhea or constipation. : Patient denies dysuria, hematuria or urinary frequency. MSK: Patient admits to RLE pain that is made worse with movement. Skin: Patient denies jaundice, rash or abscess. Psych: Patient denies symptoms of uncontrolled depression or anxiety. Neuro: Patient denies headache, paresthesias or focal neurologic deficits. Allergy: Patient denies lip swelling, tongue swelling or urticaria. Hematology: Patient denies easy bleeding or easy bruisability. Endocrinology: Patient denies polyuria, polydipsia and polyphagia. 14 point ROS otherwise negative except for positives noted above. Vital Signs Vital Signs Vital Signs: 04/16/24 18:58 04/16/24 19:04 04/16/24 19:05 Temperature 96.5 F L 97.7 F L Temperature Source Temporal Temporal Pulse Rate 74 103 H Respiratory Rate 16 18 Respiratory Effort Normal Non-Labored Respiratory Pattern Normal Blood Pressure 134/55 H 113/65 Blood Pressure Mean 81 81 Pulse Ox 93 98 Oxygen Delivery Method Room Air Room Air 04/16/24 20:04 04/16/24 21:00 04/16/24 21:30 Temperature 97.6 F L 97.7 F L 97.6 F L Temperature Source Temporal Temporal Temporal Pulse Rate 105 H 61 73 Respiratory Rate 17 17 18 Respiratory Effort Respiratory Pattern Blood Pressure 115/79 110/54 L 111/54 L Blood Pressure Mean 91 70 72 Pulse Ox 98 96 Oxygen Delivery Method Room Air 04/16/24 22:00 Temperature 97.6 F L Temperature Source Temporal Pulse Rate 64 Respiratory Rate 16 Respiratory Effort Respiratory Pattern Blood Pressure 105/56 L Blood Pressure Mean 72 Pulse Ox 95 Oxygen Delivery Method Weight Weight: 126 lb 12.253 oz Body Mass Index (BMI) 21.1 Physical Exam Const alert, oriented x3, no apparent distress and average body habitus General Appearance: cooperative HEENT normocephalic, head/scalp atraumatic, hearing grossly normal bilaterally and moist oral mucous membranes Eyes PERRL and EOMs intact bilaterally Eyes Narrative: Pale conjunctivae noted. Neck no lymphadenopathy and supple Resp normal respiratory effort, no retractions, no use of accessory muscles and clear to auscultation bilaterally Cardio regular rate and regular rhythm GI normal to inspection, nondistended, normoactive bowel sounds, soft to palpation, non-tender and non-distended Extremity normal to inspection, full ROM and no clubbing, cyanosis or edema Skin Skin Narrative: Patient has no evidence of rash, abscess or jaundice. Neuro oriented x3, CN's II-XII intact bilaterally, moves all extremities and no focal motor deficits Sensorium / Orientation: awake, alert, oriented to person and oriented to time Speech: speech normal Psych affect normal Results Medical Records Data Attestation: I reviewed the patient's medical records Lab / Micro Data Attestation: I reviewed the patient's lab results. 04/16/24 19:16 04/16/24 19:16 Labs: Laboratory Results - last 24 hr 04/16/24 19:16: WBC 2.6 L, RBC 2.81 L, Hgb 8.8 L, Hct 27.7 L, MCV 98.6, MCH 31.3, MCHC 31.8 L, RDW Std Deviation 51.0 H, RDW Coeff of Magdalene 13.9, Plt Count 123 L, MPV 12.3 H, Immature Gran % (Auto) 1.200 H, Neut % (Auto) 51.2, Lymph % (Auto) 30.4, [place] % (Auto) 16.0 H, Eos % (Auto) 0.0, Baso % (Auto) 1.2 H, A bsolute Neuts (auto) 1.3 L, Absolute Lymphs (auto) 0.78 L, Nucleated RBC % 0, Differential Comment SCANNED, Sodium 135 L, Potassium 3.8, Chloride 95 L, Carbon Dioxide 25.0, Anion Gap 15, BUN 65 H, Creatinine 6.17 H, Estim Creat Clear Calc 6.87, Est GFR (MDRD) Af Amer 9 L, Est GFR (MDRD) Non-Af 7 L, BUN/Creatinine Ratio 10.5, Glucose 105, Calcium 8.1 L Assessment & Plan Assessment/Plan (1) Generalized weakness: (2) Ambulatory dysfunction: (3) End-stage renal disease on hemodialysis: (4) ANCA-associated vasculitis: (5) Anemia: QUALIFIERS: Anemia type: unspecified type Qualified Code(s): D 64.9 - Anemia, unspecified PLAN: Plan 1. Generalized Weakness with Ambulatory Dysfunction with patient's no longer able to care for her at home - Admit to general medical floor under observation status. PT/OT and Case Management to consult and treat to help with possible ECF placement with help appreciated in advance. 2. ANCA- associated vasculitis causing severe GRACE with subsequent ESRD on HD; (M-W-) precipitating #1 - Patient missed her last HD session yesterday so we will consult Dr. Cagle of the nephrology service to see this patient on-rounds in the AM for resumption of HD with help appreciated in advance. 3. Chronic anemia; likely due to ESRD - Stable with hemoglobin of 8.8 g/dL present on admission. 4. History of SVT - Noted. 5. History of metabolic encephalopathy - Noted with no active issues at this time. 6. OA - Give Tylenol prn. 7. DVT prophylaxis - Heparin 5,000 U sq BID. Total time: Approximately 40 minutes. Charges/Coding Visit Charges OBSV E&M: 02386 Observ/hosp same date L1
[2024-04-17] VITALS (9 sets, daily range): BP systolic 120–126; BP diastolic 50–80; PULSE 59–80; RESP 14–18; TEMP 36.4–36.6; O2SAT 93–97
[2024-04-17] MEDS: Morphine 2 MG/ML Syringe IV (03:02)
[2024-04-17 06:28] LABS: Absolute Lymphocyte Count 0.86 X10^3/uL (0.83-4.51); Absolute Neutrophil Count 1.4 X10^3/uL (2.0-7.7); Basophil# 0.04 X10^3/uL; Basophil% 1.4 % (0-1); Hematocrit 26.4 % (37-47); Hemoglobin 8.4 g/dL (12.0-15.0); Lymphocyte # 0.86 X10^3/ul (0.83-4.51); Lymphocyte % 29.2 % (19-41); Mean Corp Hgb Conc 31.8 g/dL (32-36); Mean Corpuscular Hgb 31.1 pg (27.0-32.0); Mean Corpuscular Volume 97.8 fL (81-99); Mean Platelet Vol. 11.4 fl (6.2-12.0); Monocyte% 16.9 % (0-10); NRBC Flagged by Analyzer 0 % (0-5); Neutrophil # 1.42 X10^3/uL (2.7-7.7); Neutrophil % 48.1 % (47-70); POSITIVE MORPHOLOGY YES; Platelet Count 117 K/mm3 (150-450); RBC Distribution Width SD 49.7 fl (35.1-43.9)
[2024-04-17 06:31] LABS: Differential Indicated SCAN CRITERIA MET
[2024-04-17 07:11] LABS: ALB/GLOB Ratio 0.6 RATIO (0.9-2.4); AST(SGOT) 8 U/L (15-37); Alanine Aminotransfer ALT/SGPT < 6 U/L (13-56); Albumin, Serum 1.6 g/dL (3.2-5.0); Alkaline Phosphatase 59 U/L (45-117); Anion Gap 16 (5-15); BUN 77 mg/dL (7-18); BUN/Creat Ratio 11.8 RATIO (10-20); Chloride 95 mmol/L (98-107); Creatinine, Serum 6.53 mg/dL (0.55-1.02); EST Glomerular Filtration Rate 7 mL/min (>60); Est Glom Filt Rate - Afr Amer 8 mL/min (>60); Estimated Creatinine Clearance 6.31 ml/min; Globulin 2.5 g/dL (2.2-4.2); Glucose 112 mg/dL (74-106); Phosphorus 3.4 mg/dL (2.5-4.9); Potassium 3.5 mmol/L (3.5-5.1); Protein, Total 4.1 g/dL (6.4-8.2); Sodium Level 135 mmol/L (136-145)
[2024-04-17] MEDS: Menthol/Lanolin/Calamine/Znox 113 GM Tube 1 APPLIC TOPICAL ×2 (10:49→22:50)
[2024-04-17] MEDS: Ascorbic Acid 500 MG Tablet 250 MG PO (10:50)
[2024-04-17] MEDS: Cyanocobalamin 500 MCG Tablet 1000 MCG PO (10:50)
[2024-04-17] MEDS: Cholecalciferol (VIT D3) 25 MCG TABLET (1,000 UNITS) PO (10:50)
[2024-04-17] MEDS: Heparin Injection (Vial) 5,000 UNIT/ML VIAL 5000 UNIT SC ×2 (11:02→22:50)
--- NOTE | 2024-04-17 16:20 | PCM.PN.HOSP ---
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 The said when she got to 20 mg she began feeling weak and her ADLs declined at that point. I discussed this with nephrology today, nephrology verified that the patient is not presently on prednisone, it was recommended that we place her back on prednisone, I keerthi a cortisol level which will be run tomorrow. Objective Data Objective Data Vital Signs: Vital Signs Temp Pulse Resp BP Pulse Ox O2 Del Method 98 F 80 18 120/65 93 Room Air 04/17/24 11:00 04/17/24 12:00 04/17/24 12:00 04/17/24 11:00 04/17/24 12:00 04/17/24 12:00 Oxygen Delivery Method Room Air Weight: 55.4 kg Body Mass Index (BMI) 20.3 Intake & Output: Intake and Output for Last 24 Hours 04/15/24 04/16/24 04/17/24 23:59 23:59 23:59 Intake Total 400 / 400 Output Total 0 / 0 Balance 0 / 0 400 / 400 Lab / Micro Data 04/17/24 05:35 04/17/24 05:35 Labs: Laboratory Results - last 24 hr 04/16/24 19:16: WBC 2.6 L, RBC 2.81 L, Hgb 8.8 L, Hct 27.7 L, MCV 98.6, MCH 31.3, MCHC 31.8 L, RDW Std Deviation 51.0 H, RDW Coeff of Magdalene 13.9, Plt Count 123 L, MPV 12.3 H, Immature Gran % (Auto) 1.200 H, Neut % (Auto) 51.2, Lymph % (Auto) 30.4, [place] % (Auto) 16.0 H, Eos % (Auto) 0.0, Baso % (Auto) 1.2 H, Absolute Neuts (auto) 1.3 L, Absolute Lymphs (auto) 0.78 L, Nucleated RBC % 0, Differential Comment SCANNED, Sodium 135 L, Potassium 3.8, Chloride 95 L, Carbon Dioxide 25.0, Anion Gap 15, BUN 65 H, Creatinine 6.17 H, Estim Creat Clear Calc 6.87, Est GFR (MDRD) Af Amer 9 L, Est GFR (MDRD) Non-Af 7 L, BUN/Creatinine Ratio 10.5, Glucose 105, Calcium 8.1 L 04/17/24 05:35: WBC 3.0 L, RBC 2.70 L, Hgb 8.4 L, Hct 26.4 L, MCV 97.8, MCH 31.1, MCHC 31.8 L, RDW Std Deviation 49.7 H, RDW Coeff of Magdalene 14.0, Plt Count 117 L, MPV 11.4, Immature Gran % (Auto) 4.400 H, Neut % (Auto) 48.1, Lymph % (Auto) 29.2, [place] % (Auto) 16.9 H, Eos % (Auto) 0.0, Baso % (Auto) 1.4 H, Absolute Neuts (auto) 1.4 L, Absolute Lymphs (auto) 0.86, Nucleated RBC % 0, Sodium 135 L, Potassium 3.5, Chloride 95 L, Carbon Dioxide 24.0, Anion Gap 16 H, BUN 77 H, Creatinine 6.53 H, Estim Creat Clear Calc 6.31, Est GFR (MDRD) Af Amer 8 L, Est GFR (MDRD) Non-Af 7 L, BUN/Creatinine Ratio 11.8, Glucose 112 H, Calcium 8.0 L, Phosphorus 3.4, Magnesium 2.0, Total Bilirubin 0.80, AST 8 L, ALT < 6 L, Alkaline Phosphatase 59, Total Protein 4.1 L, Albumin 1.6 L, Globulin 2.5, Albumin/Globulin Ratio 0.6 L, TSH 9.890 H Physical Exam Const alert and no apparent distress Constitutional Narrative: Patient appears weak and frail General Appearance: cooperative, well kempt and well developed Orientation / Consciousness: awake, oriented to person and oriented to place HEENT normocephalic, head/scalp atraumatic and moist oral mucous membranes Eyes PERRL, EOMs intact bilaterally and conjunctivae normal Neck supple, no JVD, thyroid normal and no carotid bruits General: trachea midline Resp normal respiratory effort, no retractions, no use of accessory muscles and clear to auscultation bilaterally Auscultation: Negative for rales, rhonchi or wheezes Cardio regular rate, regular rhythm, S1 normal heart sound, S2 normal heart sound, no murmurs, no rub and no gallops GI normal to inspection, nondistended, normoactive bowel sounds, soft to palpation, non-tender and non-distended Extremity no clubbing, cyanosis or edema Skin no rashes or lesions noted General Skin Exam: no breakdown Neuro CN's II-XII intact bilaterally, moves all extremities, no focal motor deficits and no sensory deficits noted Sensorium / Orientation: awake, alert, oriented to person and oriented to place Speech: speech normal Psych Psych Narrative: Patient has a flat affect Assessment & Plan Assessment/Plan (1) Generalized weakness: PLAN: Plan 1. Generalized weakness/deconditioning-patient will be seen by PT and OT, she will need temporary placement in a retirement facility if she does not improve during her hospitalization. #2 ANCA vasculitis-again I have decided to place the patient back on prednisone at 40 mg daily, patient will be placed on Bactrim DS 1 3 times a week starting tomorrow #3 end-stage renal disease requiring dialysis-patient will be seen by nephrology and undergo dialysis. #4 pancytopenia-etiology unclear, CBC will need to be monitored #5 suspected protein and caloric malnutrition-patient will be seen by nutritional services #6 history of SVT-patient is on carvedilol Total clinical time spent by myself addressing the patient's medical issues, reviewing all of her data, and collaborating with patient's care team: 50 minutes Charges/Coding Visit Charges Inpatient E&M: 86124 [facility] Hosp L3
[2024-04-17] MEDS: predniSONE 20 MG Tablet 40 MG PO (17:09)
--- NOTE | 2024-04-17 19:20 | CON.PCM.RE_ITS ---
Assessment & Plan Assessment/Plan (1) End-stage renal disease on hemodialysis: (2) Anemia: QUALIFIERS: Anemia type: unspecified type Qualified Code(s): D 64.9 - Anemia, unspecified (3) Generalized weakness: PLAN: Plan Impression/Plan: DIAN WEBB is a 78-year-old female with 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 Patient presented to hospital on 04/16/2024 with generalized weakness to the point where she was unable to ambulate. She is admitted to hospital on 04/16/2024 for further evaluation of weakness and for failure to thrive. Nephrology is following for ESRD and dialysis management. ESRD. Patient dialyzes at [facility] on MWF schedule. Last hemodialysis was on 04/13/2024. Patient missed hemodialysis on 04/15/2024. However, there is no hyperkalemia, metabolic acidosis or signs of volume overload. She is on room air and is not hypoxemic. Will arrange for hemodialysis tomorrow on her usual schedule. Generalized weakness Her symptoms could possibly be explained by iatrogenic adrenal insufficiency. She had been on high-dose corticosteroids since December 2023. She has been weaned off of prednisone in the past 2 weeks. I am unclear as to what specific instructions were received from Dr. Cagle, but 2 weeks seems to be quick for chronic use of high-dose steroid. I agree with restarting prednisone at 40 mg/day. I agree with restarting Bactrim as well for PJP prophylaxis since dose of steroid will be more than 20 mg/day for now. We will see if she feels better back on corticosteroid and do a slower wean over 3 to 4 months rather than 2 weeks. Continue to treat anemia of chronic kidney disease with WENDY. Anemia could contribute to generalized weakness as well. HPI Consult Data Date of Consult: 04/17/24 HPI Narrative Reason for Consultation: Consult for ESRD. HPI Narrative: DIAN WEBB is a 78-year-old female with 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 Patient presented to hospital on 04/16/2024 with generalized weakness to the point where she was unable to ambulate. She has been on hemodialysis since December 2023. Patient dialyzes on MWF schedule at [facility]. She is followed there by my partner, Dr. Cagle. Patient tells me that she last felt relatively well about 2 weeks prior to presentation. She denies current chest pain, shortness of breath, or nausea. There has been no diarrhea, fever or chills. Patient reports that she has been recently weaned off of prednisone by Dr. Cagle. She had been on 60 mg/day of prednisone which was weaned over the past 2 weeks. [facility] Medical History (Updated 04/17/24 @ 01:[address] Danis Acuna DO) Kidney disease Dialysis patient Former smoker Hyperkalemia Home Medications ?Medication ?Instructions ?Recorded ?Last Taken ?Type ascorbic acid (vitamin C) 250 mg 250 mg PO DAILY 01/02/24 Unknown History tablet cholecalciferol (vitamin D3) 25 25 mcg PO DAILY 01/02/24 Unknown History mcg (1,000 unit) capsule cyanocobalamin (vitamin B-12) 1,000 mcg PO DAILY 01/02/24 Unknown History 1,000 mcg capsule iron,carbonyl-vitamin C-FOS 1 tab PO DAILY 01/02/24 Unknown History carvedilol 6.25 mg tablet 6.25 mg PO BID 04/16/24 Unknown History pantoprazole 40 mg tablet,delayed 40 mg PO DAILY 04/16/24 Unknown History release Allergy/AdvReac Type Severity Reaction Status Date / Time No Known Allergies Allergy Verified 04/16/24 19:07 Surgical History S/P dialysis catheter insertion Social History Smoking Status: Former smoker ROS ROS Narrative As per HPI, otherwise noncontributory Physical Exam Narrative General: Alert and oriented x3, NAD. HEENT: Normocephalic, atraumatic. Mucous membrane moist without erythema. PERRLA, EOMI. Hearing is intact. Neck: Supple, no JVD. Trachea is midline. No thyromegaly or lymphadenopathy. Cardiovascular: Normal S1, S2. No rubs, murmurs, or gallops. Respiratory: Lungs are clear to auscultation bilaterally. No wheezing, rhonchi, or rales. Abdomen: Normal bowel sounds, soft, nontender, no guarding or rebound, no organomegaly. Extremities: No clubbing, cyanosis, or edema. Musculoskeletal: Full passive range of motion, no joint swelling. Psychiatric: Normal mood and affect. Skin: Warm and dry, no rash. Neurologic: Cranial nerve II to XII are grossly intact. No focal neurologic deficits. Medical Records Data Medical Nutrition Assessment Dietitian: Malnutrition Criteria Met Start: 04/17/24 18:19 Freq: Status: Active Protocol: Document 04/17/24 18:19 [place] (Rec: 04/17/24 18:19 [facility] [id number]) Nutrition Malnutrition Evidence of Malnutrition Exists Yes Malnutrition (severe): Chronic Evidenced By Suboptimal Energy Intake ( Severe),Weight Loss (Severe), Physical Changes (Moderate), Physical Changes (Severe) Intake Problem Increased Nutrient Needs (specify) Etiology (protein) related to wound healing Signs/Symptoms as evidenced by pressure injury to buttocks. Status Active Problem Clinical Problem Chronic Disease or Condition Related Malnutrition Etiology related to decreased ability to consume sufficient energy to meet estimated nutrient needs Signs/Symptoms as evidenced by significant weight loss noted per EMR wt hx: 5.4% in less than 1 month based upon EMR wt of 129lb as of 04/06/24 and 13.5% in 3 months based upon EMR wt of 141lb as of 01/08/24 as well as oral intakes meeting less than 50% of nutrient needs for greater than 1 month and moderate to severe muscle and fat wasting per NFPA (temples, clavicle, buccal, interosseous). Status Active Problem Recommendation Dietitian Recommendations/Changes Continue with Renal - General diet at this time for ESRD. Will continue with Ensure Compact 4x/day with medpass to help increase oral intakes. Pt refused all other ONS at this time to help increase oral intakes and aid in wound healing. Will continue to follow and modify nutrition interventions as needed/as agreed upon by the pt. Lab / Micro Data 04/17/24 05:35 04/17/24 05:35 Labs: Laboratory Results - last 24 hr 04/16/24 19:16: WBC 2.6 L, RBC 2.81 L, Hgb 8.8 L, Hct 27.7 L, MCV 98.6, MCH 31.3, MCHC 31.8 L, RDW Std Deviation 51.0 H, RDW Coeff of Magdalene 13.9, Plt Count 123 L, MPV 12.3 H, Immature Gran % (Auto) 1.200 H, Neut % (Auto) 51.2, Lymph % (Auto) 30.4, [place] % (Auto) 16.0 H, Eos % (Auto) 0.0, Baso % (Auto) 1.2 H, A bsolute Neuts (auto) 1.3 L, Absolute Lymphs (auto) 0.78 L, Nucleated RBC % 0, Differential Comment SCANNED, Sodium 135 L, Potassium 3.8, Chloride 95 L, Carbon Dioxide 25.0, Anion Gap 15, BUN 65 H, Creatinine 6.17 H, Estim Creat Clear Calc 6.87, Est GFR (MDRD) Af Amer 9 L, Est GFR (MDRD) Non-Af 7 L, BUN/Creatinine Ratio 10.5, Glucose 105, Calcium 8.1 L 04/17/24 05:35: WBC 3.0 L, RBC 2.70 L, Hgb 8.4 L, Hct 26.4 L, MCV 97.8, MCH 31.1, MCHC 31.8 L, RDW Std Deviation 49.7 H, RDW Coeff of Magdalene 14.0, Plt Count 117 L, MPV 11.4, Immature Gran % (Auto) 4.400 H, Neut % (Auto) 48.1, Lymph % (Auto) 29.2, [place] % (Auto) 16.9 H, Eos % (Auto) 0.0, Baso % (Auto) 1.4 H, A bsolute Neuts (auto) 1.4 L, Absolute Lymphs (auto) 0.86, Nucleated RBC % 0, S odium 135 L, Potassium 3.5, Chloride 95 L, Carbon Dioxide 24.0, Anion Gap 16 H, BUN 77 H, Creatinine 6.53 H, Estim Creat Clear Calc 6.31, Est GFR (MDRD) Af Amer 8 L, Est GFR (MDRD) Non-Af 7 L, BUN/Creatinine Ratio 11.8, Glucose 112 H, C alcium 8.0 L, Phosphorus 3.4, Magnesium 2.0, Total Bilirubin 0.80, AST 8 L, ALT < 6 L, Alkaline Phosphatase 59, Total Protein 4.1 L, Albumin 1.6 L, Globulin 2.5, Albumin/Globulin Ratio 0.6 L, TSH 9.890 H
[2024-04-17] MEDS: Carvedilol 6.25 MG Tablet PO (22:50)
[2024-04-18] VITALS (17 sets, daily range): BP systolic 90–192; BP diastolic 45–69; PULSE 50–66; RESP 14–18; TEMP 36.4–36.6; O2SAT 89–98; BMI 20.6; BMI 20.4
--- NOTE | 2024-04-18 06:50 | PCM.PN.HOSP ---
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 She notes feeling improved and is now currently on dialysis, notes feeling less fatigued but is unsure if it is this or if her resumption of steroid therapy. She does note that she started to feel much more poorly after she was taken off of steroids. Attempted to discuss if she had a follow-up CT-guided biopsy for lung mass at tertiary facility when she been transferred but she is unsure. Patient denies fevers, chills, nausea, emesis, abdominal pain, chest pain. Objective Data Objective Data Vital Signs: Vital Signs Temp Pulse Resp BP Pulse Ox O2 Del Method 97.5 F L 55 L 18 125/60 H 98 Room Air 04/18/24 04:36 04/18/24 04:36 04/18/24 04:36 04/18/24 04:36 04/18/24 04:36 04/18/24 04:36 Oxygen Delivery Method Room Air Weight: 123 lb 10.869 oz Body Mass Index (BMI) 20.6 Intake & Output: Intake and Output for Last 24 Hours 04/16/24 04/17/24 04/18/24 23:59 23:59 23:59 Intake Total 800 / 800 500 / 500 Output Total 0 / 0 700 / 700 Balance 0 / 0 800 / 800 -200 / -200 Medical Nutrition Assessment Dietitian: Malnutrition Criteria Met Start: 04/17/24 18:19 Freq: Status: Active Protocol: Document 04/17/24 18:19 CARA (Rec: 04/17/24 18:19 CARA [id number]) Nutrition Malnutrition Evidence of Malnutrition Exists Yes Malnutrition (severe): Chronic Evidenced By Suboptimal Energy Intake ( Severe),Weight Loss (Severe), Physical Changes (Moderate), Physical Changes (Severe) Intake Problem Increased Nutrient Needs (specify) Etiology (protein) related to wound healing Signs/Symptoms as evidenced by pressure injury to buttocks. Status Active Problem Clinical Problem Chronic Disease or Condition Related Malnutrition Etiology related to decreased ability to consume sufficient energy to meet estimated nutrient needs Signs/Symptoms as evidenced by significant weight loss noted per EMR wt hx: 5.4% in less than 1 month based upon EMR wt of 129lb as of 04/06/24 and 13.5% in 3 months based upon EMR wt of 141lb as of 01/08/24 as well as oral intakes meeting less than 50% of nutrient needs for greater than 1 month and moderate to severe muscle and fat wasting per NFPA (temples, clavicle, buccal, interosseous). Status Active Problem Recommendation Dietitian Recommendations/Changes Continue with Renal - General diet at this time for ESRD. Will continue with Ensure Compact 4x/day with medpass to help increase oral intakes. Pt refused all other ONS at this time to help increase oral intakes and aid in wound healing. Will continue to follow and modify nutrition interventions as needed/as agreed upon by the pt. Lab / Micro Data 04/18/24 08:10 04/18/24 08:10 Labs: Laboratory Results - last 24 hr 04/17/24 05:35: Sodium 135 L, Potassium 3.5, Chloride 95 L, Carbon Dioxide 24.0, Anion Gap 16 H, BUN 77 H, Creatinine 6.53 H, Estim Creat Clear Calc 6.31, Est GFR (MDRD) Af Amer 8 L, Est GFR (MDRD) Non-Af 7 L, BUN/Creatinine Ratio 11.8, Glucose 112 H, Calcium 8.0 L, Phosphorus 3.4, Magnesium 2.0, Total Bilirubin 0.80, AST 8 L, ALT < 6 L, Alkaline Phosphatase 59, Total Protein 4.1 L, Albumin 1.6 L, Globulin 2.5, Albumin/Globulin Ratio 0.6 L, TSH 9.890 H Physical Exam Narrative Physical Examination: General: Awake, alert, oriented x 3 and cooperative, seated upright in MS bed, dialysis ongoing. Skin: Normal color, normal turgor, no icterus, no cyanosis except very stage ecchymoses, abrasion. HEENT: AT/NC, EOMI, PERRLA, MMM. Lungs: Diminished, greater bases, appropriate effort, no evidence of any distress, no rales, ronchi or wheezing. Heart: Mildly bradycardic with regular rhythm; no gallop, rub audible. Abdomen: Soft, NTTP, ND, mildly hyperactive BS Extremities: No cyanosis, no clubbing, no marked peripheral edema. Neurological: Patient awake, alert, oriented as noted cognitive function intact; pupils equally reactive to light and accommodation, cranial nerves grossly normal, moving all 4 extremities, no focal deficits, strength moderately to severely globally decreased. Psychiatric: Affect appears flat, fatigued, no acute evidence of depressive or anxiety feelings. 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 #1. 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 #2. Pancytopenia: Patient with underlying noted anemia which is likely multifactorial however upon presentation WBC and platelets also low, unclear exact etiology, admission CBC with WBC 2.6, hemoglobin 8.4, platelets 123 with increased immature granulocytes, MCV 98.6, 04/17/2020 4 repeat CBC although not much time elapsed similar with WBC 3.0, hemoglobin 8.4, platelets 117 with increased immature granulocytes. Will continue to trend, procalcitonin requested. #3. 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 Missed HD the Thursday prior to admission. Nephrology consulted and following. Continue daily prednisone 40 mg which was recently restarted as this had been discontinued outpatient with notable weakness/debility following cessation. Also, resumed Bactrim DS prophylactic regimen. #4. Cavitary Apical Lung Mass: 12/2023 CT of her chest which showed apical masses with 1 on the left that was cavitary with high suspicion vasculitic pulmonary related changes w/ CT-guided biopsy unable to be obtained at that admission as patient transferred to [facility] for tertiary facility care prior to Bx. Will investigate further what evaluation has further been done at outside facility. #5. History of GI bleed: 01/04/2024 EGD w/ nonsevere esophagitis with no bleeding, moderate Schatzki's ring which was dilated, small hiatal hernia and segmental moderate inflammation characterized by congestion, erosions, erythema, friability and granularity in the gastric antrum which was biopsied but no signs of acute bleeding, duodenum was normal. Colonoscopy 01/05/2024 with diverticulosis in the rectosigmoid and sigmoid colon along with localized moderate inflammation in the rectosigmoid colon, colon, descending colon that was felt likely secondary to ischemic colitis w/ Bx consistent with localized colitis. #6. Severe protein calorie malnutrition: BMI not severely reduced but patient with significant muscle and fat loss, notable underlying medical history and recent hospitalizations contributing, nutrition consulted and following. #7. History SVT: We will continue patient home Coreg regimen. #8. DVT prophylaxis: Heparin. Charges/Coding Visit Charges Inpatient E&M: 86025 Subs Hosp L3
[2024-04-18] MEDS: 0.9% Saline Lock 10 ML Syringe IV ×2 (07:49→10:56)
[2024-04-18] MEDS: PureFlow B 3K Dialysis Soln 1 BAG 6 BAG PF (07:50)
[2024-04-18] MEDS: 0.9% Normal Saline 1,000 ML IV.SOLN. 1000 ML OPERA.SITE (07:50)
[2024-04-18 08:16] LABS: Hematocrit 29.2 % (37-47); Hemoglobin 9.2 g/dL (12.0-15.0); Mean Corp Hgb Conc 31.5 g/dL (32-36); Mean Corpuscular Hgb 31.3 pg (27.0-32.0); Mean Corpuscular Volume 99.3 fL (81-99); Mean Platelet Vol. 11.3 fl (6.2-12.0); POSITIVE COUNT YES; POSITIVE MORPHOLOGY YES; Platelet Count 125 K/mm3 (150-450); RBC Distribution Width CV 14.4 % (11.6-14.6); RBC Distribution Width SD 52.2 fl (35.1-43.9); Red Blood Count 2.94 M/mm3 (4.2-5.4); White Blood Count 3.7 K/mm3 (4.4-11.0)
[2024-04-18 08:19] LABS: Differential Indicated MANUAL DIFF
[2024-04-18 08:34] LABS: ALB/GLOB Ratio 0.7 RATIO (0.9-2.4); AST(SGOT) 8 U/L (15-37); Alanine Aminotransfer ALT/SGPT 8 U/L (13-56); Albumin, Serum 1.8 g/dL (3.2-5.0); Alkaline Phosphatase 63 U/L (45-117); Anion Gap 11 (5-15); BUN 74 mg/dL (7-18); BUN/Creat Ratio 12.3 RATIO (10-20); Chloride 100 mmol/L (98-107); Creatinine, Serum 6.01 mg/dL (0.55-1.02); EST Glomerular Filtration Rate 7 mL/min (>60); Est Glom Filt Rate - Afr Amer 9 mL/min (>60); Estimated Creatinine Clearance 6.94 ml/min; Globulin 2.7 g/dL (2.2-4.2); Glucose 106 mg/dL (74-106); Potassium 3.7 mmol/L (3.5-5.1); Protein, Total 4.5 g/dL (6.4-8.2); Sodium Level 137 mmol/L (136-145)
[2024-04-18 08:44] LABS: Procalcitonin 1.41 ng/mL (0.00-0.09)
[2024-04-18 08:54] LABS: Lymphocyte 16 % (19-41); Metamyelocyte 1 % (0-1); Monocyte 4 % (0-10); Myelocyte 1 % (0-0); Neutrophil-Segmented 78 % (47-70); Total Cells Counted 100 (MANUAL DIFF)
[2024-04-18 08:55] LABS: Platelet Morphology LARGE
[2024-04-18 08:56] LABS: Anisocytosis 1+; Ovalocyte 1+
[2024-04-18 08:59] LABS: Absolute Neutrophil Count 2.8 X10^3/uL (2.0-7.7)
--- NOTE | 2024-04-18 09:54 | CASEMGMT ---
Discharge Planning A list of?SNF providers including quality and resource use data and consistent with the patient's preferred geographic region, medical needs, and insurance network was created in [employer] Guide.? This list was provided to the SW. Juanita Nguyen Discharge Planning Asst.
[2024-04-18] MEDS: predniSONE 20 MG Tablet 40 MG PO (10:35)
--- NOTE | 2024-04-18 10:56 | CASEMGMT ---
Addendum entered by Tara Henry 04/18/24 16:15: Social Work- SW attempted to update pt on acceptance to [facility], however, pt sleeping and spouse not in room. SW will continue to follow. BRODY Greene Original Note: Social Work- A list of SNF providers including quality and resource use data and consistent with the patient?s preferred geographic region, medical needs, and insurance network were provided from the [employer] Guide. Pt selected [facility] as FOC. DCA advised for referral. BRODY Greene
[2024-04-18] MEDS: Heparin 10,000 UNITS/10 ML Vial IV (10:57)
--- NOTE | 2024-04-18 11:23 | CASEMGMT ---
Addendum entered by Juanita Nguyen 04/18/24 11:48: [facility] has accepted and will submit for precert. SW updated. Juanita Nguyen DC Planning Asst. Original Note: Discharge Planning Referral sent to [facility] via [employer]. Juanita Nguyen DC Planning Asst.
[2024-04-18] MEDS: Cholecalciferol (VIT D3) 25 MCG TABLET (1,000 UNITS) PO (11:46)
[2024-04-18] MEDS: Menthol/Lanolin/Calamine/Znox 113 GM Tube 1 APPLIC TOPICAL (11:46)
[2024-04-18] MEDS: Pantoprazole Sodium 40 MG Tablet PO (11:46)
[2024-04-18] MEDS: Ascorbic Acid 500 MG Tablet 250 MG PO (11:46)
[2024-04-18] MEDS: Cyanocobalamin 500 MCG Tablet 1000 MCG PO (11:46)
[2024-04-18] MEDS: Heparin Injection (Vial) 5,000 UNIT/ML VIAL 5000 UNIT SC ×2 (11:46→21:52)
--- NOTE | 2024-04-18 15:18 | CASEMGMT ---
Met with patient to complete GIL form. GIL form explained to patient who voiced understanding and signed form. Original form placed in pt?s chart and copy provided to patient. Juanita Nguyen, Discharge Planning Asst
[2024-04-18] MEDS: Smz/Tmp Ds Tablet 1 TABLET PO (17:11)
[2024-04-18] MEDS: Carvedilol 6.25 MG Tablet PO (21:52)
[2024-04-19 02:25] VITALS: BP 135/61; PULSE 65; RESP 16; TEMP 36.8; O2SAT 95
[2024-04-19 04:20] VITALS: BMI 21.8
[2024-04-19 06:35] LABS: Hemoglobin 8.6 g/dL (12.0-15.0); Mean Corp Hgb Conc 30.7 g/dL (32-36); Mean Corpuscular Hgb 30.9 pg (27.0-32.0); Mean Corpuscular Volume 100.7 fL (81-99); Mean Platelet Vol. 11.3 fl (6.2-12.0); POSITIVE COUNT YES; POSITIVE MORPHOLOGY YES; Platelet Count 105 K/mm3 (150-450); RBC Distribution Width CV 14.4 % (11.6-14.6); RBC Distribution Width SD 53.2 fl (35.1-43.9); Red Blood Count 2.78 M/mm3 (4.2-5.4); White Blood Count 5.4 K/mm3 (4.4-11.0)
[2024-04-19 06:36] LABS: Differential Indicated MANUAL DIFF
[2024-04-19 06:54] LABS: ALB/GLOB Ratio 0.8 RATIO (0.9-2.4); AST(SGOT) 7 U/L (15-37); Alanine Aminotransfer ALT/SGPT 7 U/L (13-56); Albumin, Serum 1.8 g/dL (3.2-5.0); Alkaline Phosphatase 59 U/L (45-117); Anion Gap 8 (5-15); BUN 54 mg/dL (7-18); BUN/Creat Ratio 11.9 RATIO (10-20); Chloride 105 mmol/L (98-107); Creatinine, Serum 4.55 mg/dL (0.55-1.02); EST Glomerular Filtration Rate 10 mL/min (>60); Est Glom Filt Rate - Afr Amer 12 mL/min (>60); Estimated Creatinine Clearance 9.32 ml/min; Globulin 2.2 g/dL (2.2-4.2); Glucose 120 mg/dL (74-106); Potassium 3.7 mmol/L (3.5-5.1); Sodium Level 139 mmol/L (136-145)
--- NOTE | 2024-04-19 07:17 | PN.HOSP_ITS ---
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 She denies any acute complaints including any fever, chills, cough, dyspnea, abdominal discomfort or diarrhea. Discussed still ongoing evaluation for therapies with plan for skilled placement. Did discuss given her presentation to assure no infectious process given immunosuppressed status procalcitonin was obtained and elevated 1.41. Discussed plan of care with her which included blood cultures which have been obtained, chest x-ray which was unremarkable and pending urine sample however she does not make much urine with no obvious source of any infection. Patient denies fevers, chills, nausea, emesis, abdominal pain, chest pain or dyspnea. Objective Data Objective Data Vital Signs: Vital Signs Temp Pulse Resp BP Pulse Ox O2 Del Method O2 Flow Rate 98.3 F 65 16 135/61 H 95 Room Air 2 04/19/24 02:25 04/19/24 02:25 04/19/24 02:25 04/19/24 02:25 04/19/24 02:25 04/19/24 02:25 04/18/24 20:40 Oxygen Flow Rate (L/min) 2 Oxygen Delivery Method Room Air Weight: 130 lb 15.273 oz Body Mass Index (BMI) 21.8 Intake & Output: Intake and Output for Last 24 Hours 04/17/24 04/18/24 04/19/24 23:59 23:59 23:59 Intake Total 800 / 800 500 / 500 Output Total 1100 / 1100 0 / 0 Balance 800 / 800 -600 / -600 0 / 0 Medical Nutrition Assessment Dietitian: Malnutrition Criteria Met Start: 04/17/24 18:19 Freq: Status: Active Protocol: Document 04/17/24 18:19 CARA (Rec: 04/17/24 18:19 CARA [id number]) Nutrition Malnutrition Evidence of Malnutrition Exists Yes Malnutrition (severe): Chronic Evidenced By Suboptimal Energy Intake ( Severe),Weight Loss (Severe), Physical Changes (Moderate), Physical Changes (Severe) Intake Problem Increased Nutrient Needs (specify) Etiology (protein) related to wound healing Signs/Symptoms as evidenced by pressure injury to buttocks. Status Active Problem Clinical Problem Chronic Disease or Condition Related Malnutrition Etiology related to decreased ability to consume sufficient energy to meet estimated nutrient needs Signs/Symptoms as evidenced by significant weight loss noted per EMR wt hx: 5.4% in less than 1 month based upon EMR wt of 129lb as of 04/06/24 and 13.5% in 3 months based upon EMR wt of 141lb as of 01/08/24 as well as oral intakes meeting less than 50% of nutrient needs for greater than 1 month and moderate to severe muscle and fat wasting per NFPA (temples, clavicle, buccal, interosseous). Status Active Problem Recommendation Dietitian Recommendations/Changes Continue with Renal - General diet at this time for ESRD. Will continue with Ensure Compact 4x/day with medpass to help increase oral intakes. Pt refused all other ONS at this time to help increase oral intakes and aid in wound healing. Will continue to follow and modify nutrition interventions as needed/as agreed upon by the pt. Lab / Micro Data 04/19/24 05:50 04/19/24 05:50 Labs: Laboratory Results - last 24 hr 04/17/24 16:25: Cortisol 16.00 04/18/24 08:10: WBC 3.7 L, RBC 2.94 L, Hgb 9.2 L, Hct 29.2 L, MCV 99.3 H, MCH 31.3, MCHC 31.5 L, RDW Std Deviation 52.2 H, RDW Coeff of Magdalene 14.4, Plt Count 125 L, MPV 11.3, Neut % (Auto) Not Reportable, Absolute Neuts (auto) 2.8, A bsolute Lymphs (auto) 0.60 L, Total Counted 100, Neutrophils % (Manual) 78 H, L ymphocytes % (Manual) 16 L, Monocytes % (Manual) 4, Metamyelocytes % 1, M yelocytes % 1 H, Diff Path Review May foll, Plt Morphology Comment LARGE, Anisocytosis 1+, Ovalocytes 1+, Sodium 137, Potassium 3.7, Chloride 100, Carbon Dioxide 26.0, Anion Gap 11, BUN 74 H, Creatinine 6.01 H, Estim Creat Clear Calc 6.94, Est GFR (MDRD) Af Amer 9 L, Est GFR (MDRD) Non-Af 7 L, BUN/Creatinine Ratio 12.3, Glucose 106, Calcium 8.0 L, Total Bilirubin 0.50, AST 8 L, ALT 8 L, Alkaline Phosphatase 63, Total Protein 4.5 L, Albumin 1.8 L, Globulin 2.7, A lbumin/Globulin Ratio 0.7 L, Procalcitonin 1.41 H 04/19/24 05:50: WBC 5.4, RBC 2.78 L, Hgb 8.6 L, Hct 28.0 L, MCV 100.7 H, MCH 30.9, MCHC 30.7 L, RDW Std Deviation 53.2 H, RDW Coeff of Magdalene 14.4, Plt Count 105 L, MPV 11.3, Neut % (Auto) Not Reportable, Sodium 139, Potassium 3.7, Chloride 105, Carbon Dioxide 26.0, Anion Gap 8, BUN 54 H, Creatinine 4.55 H, Estim Creat Clear Calc 9.32, Est GFR (MDRD) Af Amer 12 L, Est GFR (MDRD) Non-Af 10 L, BUN/Creatinine Ratio 11.9, Glucose 120 H, Calcium 8.0 L, Total Bilirubin 0.50, AST 7 L, ALT 7 L, Alkaline Phosphatase 59, Total Protein 4.0 L, Albumin 1.8 L, Globulin 2.2, Albumin/Globulin Ratio 0.8 L Physical Exam Narrative Physical Examination: General: Awake, alert, oriented x 3 and cooperative, seated upright in MS bed. Skin: Normal color, normal turgor, no icterus, no cyanosis except very stage ecchymoses, abrasions. HEENT: AT/NC, EOMI, PERRLA, MMM. Lungs: Diminished, greater bases, appropriate effort, no evidence of any distress, no rales, ronchi or wheezing. Heart: Mildly bradycardic with regular rhythm; no gallop, rub audible. Abdomen: Soft, NTTP, ND, normal BS Extremities: No cyanosis, no clubbing, no marked peripheral edema. Neurological: Patient awake, alert, oriented as noted cognitive function intact; pupils equally reactive to light and accommodation, cranial nerves grossly normal, moving all 4 extremities, no focal deficits, strength moderately to severely globally decreased. Psychiatric: Affect appears flat, fatigued, denies any complaints, no acute evidence of depressive or anxiety feelings but given recent diagnosis certainly high risk for depression. 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 #1. 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 #2. Pancytopenia: Patient with underlying noted anemia which is likely multifactorial however upon presentation WBC and platelets also low, unclear exact etiology, admission CBC with WBC 2.6, hemoglobin 8.4, platelets 123 with increased immature granulocytes--> 04/19/2024 CBC with WBC 5.4, hemoglobin 8.6, MCV one 9.7, platelet 105 with lymphopenia and no significant left shift compared to prior. Procalcitonin had been requested to be cautious and was elevated at 1.41 therefore blood cultures been obtained and are pending, chest x-ray obtained with no marked findings, requested urinalysis but again patient does not make much urine but no obvious source of any infection despite this finding. #3. 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 Missed HD the Thursday prior to admission. Nephrology consulted and following. Continue daily prednisone 40 mg which was recently restarted as this had been discontinued outpatient with notable weakness/debility following cessation. Also, resumed Bactrim DS prophylactic regimen upon admission. #4. Cavitary Apical Lung Mass: 12/2023 CT of her chest which showed apical masses with 1 on the left that was cavitary with high suspicion vasculitic pulmonary related changes w/ CT-guided biopsy unable to be obtained at that admission as patient transferred to [facility] for tertiary facility care prior to Bx. Chest x-ray with no overt findings. Will need to assure follow-up to assure this is being followed upon discharge. #5. History of GI bleed: 01/04/2024 EGD w/ nonsevere esophagitis with no bleeding, moderate Schatzki's ring which was dilated, small hiatal hernia and segmental moderate inflammation characterized by congestion, erosions, erythema, friability and granularity in the gastric antrum which was biopsied but no signs of acute bleeding, duodenum was normal. Colonoscopy 01/05/2024 with diverticulosis in the rectosigmoid and sigmoid colon along with localized moderate inflammation in the rectosigmoid colon, colon, descending colon that was felt likely secondary to ischemic colitis w/ Bx consistent with localized colitis. #6. Severe protein calorie malnutrition: BMI not severely reduced but patient with significant muscle and fat loss, notable underlying medical history and recent hospitalizations contributing, nutrition consulted and following. #7. History SVT: We will continue patient home Coreg regimen. #8. DVT prophylaxis: Heparin. Charges/Coding Visit Charges Inpatient E&M: 28354 Subs Hosp L2
[2024-04-19 07:51] VITALS: BP 146/65; PULSE 57; RESP 16; TEMP 36.6; O2SAT 100
[2024-04-19] MEDS: predniSONE 20 MG Tablet 40 MG PO (08:00)
--- NOTE | 2024-04-19 08:11 | RAD_ITS ---
STUDY: X-RAY CHEST REASON FOR EXAM: Female, 78 years old. Cough TECHNIQUE: Single AP portable view of the chest. COMPARISON: Comparison is made with prior study dated January 05, 2024. FINDINGS: A right-sided double-lumen catheter seen with the tip at the junction of the superior vena cava and right atrium. Hyperinflation. The lungs are clear. There is no demonstrated pleural abnormality. There is mild cardiac enlargement. Normal mediastinum and dawn. Normal visualized pulmonary arteries. There is atherosclerotic calcification of the aortic arch with tortuosity. There is demineralization of the osseous structures. Normal visualized ribs, clavicles, and shoulders. There is no demonstrated abnormality of the visualized soft tissue structures of the upper abdomen. RAD/Chest PA and Lateral IMPRESSION: Hyperinflation. The lungs are clear. Electronically Signed: Willam Del Angel MD at 10:40 EDT ,
[2024-04-19 08:41] LABS: Pathologist Review Reviewed
[2024-04-19 08:51] LABS: Anisocytosis 1+; Lymphocyte 15 % (19-41); Monocyte 8 % (0-10); Myelocyte 2 % (0-0); Neutrophil-Segmented 75 % (47-70); Reactive Lymphocyte 1+; Total Cells Counted 100 (MANUAL DIFF)
[2024-04-19 08:52] LABS: Absolute Neutrophil Count 4.1 X10^3/uL (2.0-7.7)
[2024-04-19] MEDS: Heparin Injection (Vial) 5,000 UNIT/ML VIAL 5000 UNIT SC ×2 (09:44→21:11)
[2024-04-19] MEDS: Cyanocobalamin 500 MCG Tablet 1000 MCG PO (09:44)
[2024-04-19] MEDS: Pantoprazole Sodium 40 MG Tablet PO (09:44)
[2024-04-19] MEDS: Carvedilol 6.25 MG Tablet PO ×2 (09:45→21:11)
[2024-04-19] MEDS: Ascorbic Acid 500 MG Tablet 250 MG PO (09:45)
[2024-04-19] MEDS: Cholecalciferol (VIT D3) 25 MCG TABLET (1,000 UNITS) PO (09:46)
--- NOTE | 2024-04-19 10:36 | PCM.PN.REN ---
Subjective Subjective Sitting up in bed. No overnight events. States feeling better overall. Objective Data Objective Data Vital Signs: Vital Signs Temp Pulse Resp BP Pulse Ox O2 Del Method O2 Flow Rate 97.8 F 57 L 16 146/65 H 100 Room Air 2 04/19/24 07:51 04/19/24 07:51 04/19/24 07:51 04/19/24 07:51 04/19/24 07:51 04/19/24 07:51 04/18/24 20:40 Oxygen Flow Rate (L/min) 2 Oxygen Delivery Method Room Air Weight: 59.4 kg Body Mass Index (BMI) 21.8 Intake & Output: Intake and Output for Last 24 Hours 04/17/24 04/18/24 04/19/24 23:59 23:59 23:59 Intake Total 800 / 800 500 / 500 Output Total 1100 / 1100 0 / 0 Balance 800 / 800 -600 / -600 0 / 0 Medical Nutrition Assessment Dietitian: Malnutrition Criteria Met Start: 04/17/24 18:19 Freq: Status: Active Protocol: Document 04/17/24 18:19 NICK (Rec: 04/17/24 18:19 [facility] [id number]) Nutrition Malnutrition Evidence of Malnutrition Exists Yes Malnutrition (severe): Chronic Evidenced By Suboptimal Energy Intake ( Severe),Weight Loss (Severe), Physical Changes (Moderate), Physical Changes (Severe) Intake Problem Increased Nutrient Needs (specify) Etiology (protein) related to wound healing Signs/Symptoms as evidenced by pressure injury to buttocks. Status Active Problem Clinical Problem Chronic Disease or Condition Related Malnutrition Etiology related to decreased ability to consume sufficient energy to meet estimated nutrient needs Signs/Symptoms as evidenced by significant weight loss noted per EMR wt hx: 5.4% in less than 1 month based upon EMR wt of 129lb as of 04/06/24 and 13.5% in 3 months based upon EMR wt of 141lb as of 01/08/24 as well as oral intakes meeting less than 50% of nutrient needs for greater than 1 month and moderate to severe muscle and fat wasting per NFPA (temples, clavicle, buccal, interosseous). Status Active Problem Recommendation Dietitian Recommendations/Changes Continue with Renal - General diet at this time for ESRD. Will continue with Ensure Compact 4x/day with medpass to help increase oral intakes. Pt refused all other ONS at this time to help increase oral intakes and aid in wound healing. Will continue to follow and modify nutrition interventions as needed/as agreed upon by the pt. Lab / Micro Data 04/19/24 05:50 04/19/24 05:50 Labs: Laboratory Results - last 24 hr 04/18/24 08:10: Diff Path Review Reviewed 04/19/24 05:50: WBC 5.4, RBC 2.78 L, Hgb 8.6 L, Hct 28.0 L, MCV 100.7 H, MCH 30.9, MCHC 30.7 L, RDW Std Deviation 53.2 H, RDW Coeff of Magdalene 14.4, Plt Count 105 L, MPV 11.3, Neut % (Auto) Not Reportable, Absolute Neuts (auto) 4.1, Absolute Lymphs (auto) 0.80 L, Total Counted 100, Neutrophils % (Manual) 75 H, Lymphocytes % (Manual) 15 L, Monocytes % (Manual) 8, Myelocytes % 2 H, Diff Path Review May foll, Reactive Lymphocytes 1+, Anisocytosis 1+, Sodium 139, Potassium 3.7, Chloride 105, Carbon Dioxide 26.0, Anion Gap 8, BUN 54 H, Creatinine 4.55 H, Estim Creat Clear Calc 9.32, Est GFR (MDRD) Af Amer 12 L, Est GFR (MDRD) Non-Af 10 L, BUN/Creatinine Ratio 11.9, Glucose 120 H, Calcium 8.0 L, Total Bilirubin 0.50, AST 7 L, ALT 7 L, Alkaline Phosphatase 59, Total Protein 4.0 L, Albumin 1.8 L, Globulin 2.2, Albumin/Globulin Ratio 0.8 L Physical Exam Narrative Alert and orient x 3, no apparent stress S1, S2, RRR Lungs clear Abdomen soft, nontender Bilateral lower legs Moo wrap intact Tunneled HD catheter dressing clean, dry and intact Assessment & Plan Assessment/Plan (1) End-stage renal disease on hemodialysis: (2) Anemia: QUALIFIERS: Anemia type: unspecified type Qualified Code(s): D64.9 - Anemia, unspecified (3) Generalized weakness: PLAN: Plan Impression/Plan: DIAN WEBB is a 78-year-old female with 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 Patient presented to hospital on 04/16/2024 with generalized weakness to the point where she was unable to ambulate. She is admitted to hospital on 04/16/2024 for further evaluation of weakness and for failure to thrive. Nephrology is following for ESRD and dialysis management. 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 Dialyzing at [facility]. No noted renal recovery at this time. No acute indication for CATH LAB RADIOLOGICAL TECHNOLOGIST today. Next dialysis tomorrow. Patient does not need renal diet restrictions. She is vegetarian and encouraged to increase protein intake - Generalized weakness; possibly be explained by iatrogenic adrenal insufficiency. She had been on high-dose corticosteroids since December 2023. Back on prednisone 40 mg/day and Bactrim. We will see if she feels better back on corticosteroid and do a slower wean over 3 to 4 months rather than 2 weeks. - Anemia of chronic kidney disease; will give WENDY with HD tomorrow - HTN; bps acceptable with coreg. Hold am dose of HD
--- NOTE | 2024-04-19 11:22 | CASEMGMT ---
Addendum entered by Alice Bueno 04/19/24 12:05: SW updated pt has GRACE. TC to Yissel at [facility], she is aware pt will not be receiving dialysis at [facility]. Original Note: Received tc from Yissel at [facility] questioning if pt will be coming to [facility] from [facility] or if [facility] will be providing dialysis. Appears the nephro consult states ESRD but note from today states ESRD and GRACE. Update to who will discuss with [facility].
[2024-04-19 11:51] LABS: Pathologist Review Reviewed
[2024-04-19 13:23] VITALS: BP 103/50; PULSE 62; RESP 16; TEMP 36.6; O2SAT 95
--- NOTE | 2024-04-19 14:01 | CASEMGMT ---
Social Work SW spoke with Nisha, Nephrology MELT SUPERINTENDANT regarding pt's dialysis. Per Nisha, pt has not been officially diagnosed with ESRD therefore, she will need to get dialysis at the [facility]. Phone call to Anila at [facility] and updated. [facility] will set up transportation for pt to dialysis. RNCM updated. BRODY Calloway
[2024-04-19 21:00] VITALS: BP 136/60; PULSE 61; RESP 16; TEMP 36.6; O2SAT 94
[2024-04-20] VITALS (12 sets, daily range): BP systolic 41–290; BP diastolic 56–73; PULSE 52–63; RESP 14–20; TEMP 36.5–36.7; O2SAT 91–99; BMI 21.7; BMI 21.5; BMI 21.3
--- NOTE | 2024-04-20 06:19 | PCM.PN.HOSP ---
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 She notes actually feeling improved and has a better mood today. Discussed recent workup with blood cultures with no growth thus far and unremarkable findings on chest x-ray. Patient has not made any urine to obtain urinalysis but this is normal for her. Discussed likelihood that procalcitonin is mildly elevated given her status of dialysis and so forth given no obvious evidence of any infection. Discussed still awaiting case management/social work skilled facility placement precertification. Patient denies fevers, chills, nausea, emesis, abdominal pain, chest pain or dyspnea. Objective Data Objective Data Vital Signs: Vital Signs Temp Pulse Resp BP Pulse Ox O2 Del Method O2 Flow Rate 97.7 F L 60 16 149/73 H 94 Room Air 2 04/20/24 02:58 04/20/24 02:58 04/20/24 02:58 04/20/24 02:58 04/20/24 02:58 04/20/24 02:58 04/19/24 21:00 Oxygen Flow Rate (L/min) 2 Oxygen Delivery Method Room Air Weight: 130 lb 8.218 oz Body Mass Index (BMI) 21.7 Intake & Output: Intake and Output for Last 24 Hours 04/18/24 04/19/24 04/20/24 23:59 23:59 23:59 Intake Total 500 / 500 Output Total 1100 / 1100 0 / 0 0 / 0 Balance -600 / -600 0 / 0 0 / 0 Medical Nutrition Assessment Dietitian: Malnutrition Criteria Met Start: 04/17/24 18:19 Freq: Status: Active Protocol: Document 04/17/24 18:19 CARA (Rec: 04/17/24 18:19 [facility]A [id number]) Nutrition Malnutrition Evidence of Malnutrition Exists Yes Malnutrition (severe): Chronic Evidenced By Suboptimal Energy Intake ( Severe),Weight Loss (Severe), Physical Changes (Moderate), Physical Changes (Severe) Intake Problem Increased Nutrient Needs (specify) Etiology (protein) related to wound healing Signs/Symptoms as evidenced by pressure injury to buttocks. Status Active Problem Clinical Problem Chronic Disease or Condition Related Malnutrition Etiology related to decreased ability to consume sufficient energy to meet estimated nutrient needs Signs/Symptoms as evidenced by significant weight loss noted per EMR wt hx: 5.4% in less than 1 month based upon EMR wt of 129lb as of 04/06/24 and 13.5% in 3 months based upon EMR wt of 141lb as of 01/08/24 as well as oral intakes meeting less than 50% of nutrient needs for greater than 1 month and moderate to severe muscle and fat wasting per NFPA (temples, clavicle, buccal, interosseous). Status Active Problem Recommendation Dietitian Recommendations/Changes Continue with Renal - General diet at this time for ESRD. Will continue with Ensure Compact 4x/day with medpass to help increase oral intakes. Pt refused all other ONS at this time to help increase oral intakes and aid in wound healing. Will continue to follow and modify nutrition interventions as needed/as agreed upon by the pt. Lab / Micro Data 04/20/24 06:46 04/20/24 06:46 Labs: Laboratory Results - last 24 hr 04/18/24 08:10: Diff Path Review Reviewed 04/19/24 05:50: WBC 5.4, RBC 2.78 L, Hgb 8.6 L, Hct 28.0 L, MCV 100.7 H, MCH 30.9, MCHC 30.7 L, RDW Std Deviation 53.2 H, RDW Coeff of Magdalene 14.4, Plt Count 105 L, MPV 11.3, Neut % (Auto) Not Reportable, Absolute Neuts (auto) 4.1, Absolute Lymphs (auto) 0.80 L, Total Counted 100, Neutrophils % (Manual) 75 H, Lymphocytes % (Manual) 15 L, Monocytes % (Manual) 8, Myelocytes % 2 H, Diff Path Review Reviewed, Reactive Lymphocytes 1+, Anisocytosis 1+, Sodium 139, Potassium 3.7, Chloride 105, Carbon Dioxide 26.0, Anion Gap 8, BUN 54 H, Creatinine 4.55 H, Estim Creat Clear Calc 9.32, Est GFR (MDRD) Af Amer 12 L, Est GFR (MDRD) Non-Af 10 L, BUN/Creatinine Ratio 11.9, Glucose 120 H, Calcium 8.0 L, Total Bilirubin 0.50, AST 7 L, ALT 7 L, Alkaline Phosphatase 59, Total Protein 4.0 L, Albumin 1.8 L, Globulin 2.2, Albumin/Globulin Ratio 0.8 L Radiography Diagnostic Testing: Radiology Impression Chest X-Ray 04/19/24 08:11 IMPRESSION: Hyperinflation. The lungs are clear. Electronically Signed: Willam Del Angel MD at 10:40 EDT , Physical Exam Narrative Physical Examination: General: Awake, alert, oriented x 3 and cooperative, seated upright in MS bed, more interactive and appears more comfortable today. Skin: Normal color, normal turgor, no icterus, no cyanosis except very stage ecchymoses, abrasions. HEENT: AT/NC, EOMI, PERRLA, MMM. Lungs: Diminished, greater bases, appropriate effort, no evidence of any distress, no rales, ronchi or wheezing. Heart: Mildly bradycardic with regular rhythm; no gallop, rub audible. Abdomen: Soft, NTTP, ND, normal BS Extremities: No cyanosis, no clubbing, no marked peripheral edema. Neurological: Patient awake, alert, oriented as noted cognitive function intact; pupils equally reactive to light and accommodation, cranial nerves grossly normal, moving all 4 extremities, no focal deficits, strength mildly improved, moderately to severely globally decreased. Psychiatric: Affect appears more interactive, smiling with discussions today which is an improvement, no acute evidence of depressive or anxiety feelings but given recent diagnosis certainly high risk for depression. Assessment & Plan Assessment/Plan (1) Pancytopenia: PLAN: Plan The patient is a 78 y/o F w/ PMHx: Hx ANCA-associated vasculitis causing GRACE w/ eventual ESRD now on HD MWF, Chronic anemia, Hx GI bleed, Hx SVT, COPD, PAF, HTN, Severe calorie malnutrition, Prior admission noted Cavitary Apical Lung Mass who presents to the [facility] ED on 04/18/24 with severe debility, weakness, unable to safely be cared for at home. #1. Adult failure to thrive, multifactorial, secondary to noted history below: Admitted to medical surgical floor, maintain on fall precautions, continue interventions and treatments of medical underlying conditions as noted with ongoing steroid therapy, resumption of prophylactic Bactrim, resumption of HD therapy as missed dialysis, PT/OT/case materials management supervisor with need for skilled placement. 04/20/2024 still awaiting precertification for skilled placement but given timeline would expect potential clearance today. #2. Pancytopenia: Patient with underlying noted anemia which is likely multifactorial however upon presentation WBC and platelets also low, unclear exact etiology, admission CBC with WBC 2.6, hemoglobin 8.4, platelets 123 with increased immature granulocytes--> 04/19/2024 CBC with WBC 5.4, hemoglobin 8.6, MCV one 9.7, platelet 105 with lymphopenia and no significant left shift compared to prior thus leukopenia resolving. Procalcitonin 1.41 however blood cultures with no growth, chest x-ray unremarkable, afebrile with stable vital signs and inability unfortunately to make any urine to obtain urinalysis thus low suspicion for any type of infection. #3. 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 Missed HD the Thursday prior to admission. Nephrology consulted and following. Continue daily prednisone 40 mg which was recently restarted as this had been discontinued outpatient with notable weakness/debility following cessation. Continue Bactrim double strength prophylactic regimen. #4. Cavitary Apical Lung Mass: 12/2023 CT of her chest which showed apical masses with 1 on the left that was cavitary with high suspicion vasculitic pulmonary related changes w/ CT-guided biopsy unable to be obtained at that admission as patient transferred to [facility] for tertiary facility care prior to Bx. Chest x-ray with no overt findings. Upon discharge will encourage follow-up for ongoing evaluation of previously noted mass in the apical lung region. #5. History of GI bleed: 01/04/2024 EGD w/ nonsevere esophagitis with no bleeding, moderate Schatzki's ring which was dilated, small hiatal hernia and segmental moderate inflammation characterized by congestion, erosions, erythema, friability and granularity in the gastric antrum which was biopsied but no signs of acute bleeding, duodenum was normal. Colonoscopy 01/05/2024 with diverticulosis in the rectosigmoid and sigmoid colon along with localized moderate inflammation in the rectosigmoid colon, colon, descending colon that was felt likely secondary to ischemic colitis w/ Bx consistent with localized colitis. #6. Severe protein calorie malnutrition: BMI not severely reduced but patient with significant muscle and fat loss, notable underlying medical history and recent hospitalizations contributing, nutrition consulted and following. #7. History SVT: We will continue patient home Coreg regimen. #8. DVT prophylaxis: Heparin. Charges/Coding Visit Charges Inpatient E&M: 34924 Subs Hosp L2
[2024-04-20 07:24] LABS: Hematocrit 28.5 % (37-47); Hemoglobin 8.6 g/dL (12.0-15.0); Mean Corp Hgb Conc 30.2 g/dL (32-36); Mean Corpuscular Hgb 30.2 pg (27.0-32.0); POSITIVE COUNT YES; POSITIVE MORPHOLOGY YES; Platelet Count 109 K/mm3 (150-450); RBC Distribution Width CV 14.3 % (11.6-14.6); Red Blood Count 2.85 M/mm3 (4.2-5.4); White Blood Count 8.3 K/mm3 (4.4-11.0)
[2024-04-20] MEDS: predniSONE 20 MG Tablet 40 MG PO (07:25)
[2024-04-20 08:38] LABS: ALB/GLOB Ratio 0.8 RATIO (0.9-2.4); AST(SGOT) 8 U/L (15-37); Alanine Aminotransfer ALT/SGPT < 6 U/L (13-56); Albumin, Serum 1.8 g/dL (3.2-5.0); Alkaline Phosphatase 55 U/L (45-117); Anion Gap 9 (5-15); BUN 69 mg/dL (7-18); BUN/Creat Ratio 12.6 RATIO (10-20); Calcium,Total 8.2 mg/dL (8.5-10.1); Chloride 104 mmol/L (98-107); Creatinine, Serum 5.49 mg/dL (0.55-1.02); EST Glomerular Filtration Rate 8 mL/min (>60); Est Glom Filt Rate - Afr Amer 10 mL/min (>60); Estimated Creatinine Clearance 7.72 ml/min; Globulin 2.3 g/dL (2.2-4.2); Glucose 79 mg/dL (74-106); Potassium 3.9 mmol/L (3.5-5.1); Protein, Total 4.1 g/dL (6.4-8.2); Sodium Level 138 mmol/L (136-145)
--- NOTE | 2024-04-20 08:40 | CASEMGMT ---
Discharge Planning Updates to [facility] via [facility]. Precert still pending. Juanita Nguyen DC Planning Asst.
--- NOTE | 2024-04-20 08:41 | NUR.TO.PHY ---
dialysis initiated on patient this am. both cvc lumens had good push & pull. @ 30 minutes of treatment, neither lumen had an adequate pull. both lumens flushed with NS w/o change. Cathflo ordered by kettle cleaner. blood returned, cathflo to dwell for 45min & will attempt to resume dialysis with a new cartridge.
[2024-04-20 09:19] LABS: Differential Indicated MANUAL DIFF
[2024-04-20] MEDS: 0.9% Saline Lock 10 ML Syringe IV (09:21)
[2024-04-20] MEDS: Alteplase 2 MG/2 ML Vial IV (09:21)
[2024-04-20] MEDS: 0.9% Normal Saline 1,000 ML IV.SOLN. 1000 ML OPERA.SITE (09:22)
[2024-04-20] MEDS: PureFlow B 3K Dialysis Soln 1 BAG 6 BAG PF (09:23)
[2024-04-20 09:25] LABS: Lymphocyte 13 % (19-41); Metamyelocyte 4 % (0-1); Monocyte 12 % (0-10); Myelocyte 5 % (0-0); Neutrophil-Segmented 66 % (47-70); Total Cells Counted 100 (MANUAL DIFF)
[2024-04-20 09:26] LABS: Anisocytosis 1+; Atypical Lymphocyte 1+ %
[2024-04-20 09:27] LABS: Absolute Neutrophil Count 5.5 X10^3/uL (2.0-7.7)
[2024-04-20] MEDS: Heparin 10,000 UNITS/10 ML Vial 3000 UNITS IV (11:53)
--- NOTE | 2024-04-20 12:54 | TREXTCAR_ITS ---
Diet Diet Order/Speech Therapy: 04/19/24 09:51 Diet: Vegetarian Diet Comments: vegetarian - can have eggs and foods that contain dairy (doesn't like milk) What type of Vegetarian diet?: Lacto-Ovo Routine Orders/Code Status Suppository Type: Dulcolax 10mg Suppository Frequency: Daily PRN Keep PO Greater than or Equal to (%): 92 Routine Lab Work: - (Repeat CBC, BMP in 1 week or per Nephrology request.) Code Status: Full Code Wound(s) Pressure woud to buttocks: Wound Type: Pressure Injury Suggestions for Active Care Change Position every (hours): 2 Hours to sit in a chair: 6 Times a day to sit in chair: 3 Therapies Weight Bearing: Full weight bearing Physical Therapy: Eval and Treat Occupational Therapy: Eval and Treat Problem/Diagnosis (1) Pancytopenia: Status: Acute Code(s): D61.818 - Other pancytopenia Comment: DISCHARGE DIAGNOSES: #1. Adult failure to thrive, multifactorial, secondary to noted history below #2. Pancytopenia, unclear etiology #3. Hx ANCA-associated vasculitis causing GRACE w/ eventual ESRD now on HD MWF, missed HD session Thursday prior #4. Known Cavitary Apical Lung Mass #5. History of GI bleed #6. Severe protein calorie malnutrition #7. History SVT Allergies/Procedures Done in Hospital Allergies No Known Allergies Allergy (Verified 04/16/24 19:07) Procedures: Dialysis and EKG Type of Care/Length of Stay Estimated LOS: Convalescent Care Less Than 30 days Type of Care Needed: Skilled Rehab Potential: Good Prognosis: Good Additional Orders/Day of Discharge Additional Orders: (1) Encourage HOB, (2) IS 10x/hr 7a-7p, (3) OOB to chair with all meals Day of Discharge: 04/20/24 Dietary and Speech Recommendations Dietitian Recommendations/Changes: Continue with Renal - General diet at this time for ESRD. Will continue with Ensure Compact 4x/day with medpass to help increase oral intakes. Pt refused all other ONS at this time to help increase oral intakes and aid in wound healing. Will continue to follow and modify nutrition interventions as needed/as agreed u sabi by the pt. Discharge Plan Admission Admit Date/Time: 04/16/24 22:33 Primary Reason for Your Visit: Adult FTT, Pancytopenia, Hx ANCA-associated vasculitis GRACE->ESRD on HD Attending Provider: María Elena Villa Primary Care Provider: Jorge Garcia Consulting Providers: Danis Acuna; Uli Epstein; Jorge Mcmahan Instructions Additional Instructions / Restrictions: ADDITIONAL DISCHARGE INFORMATION/INSTRUCTIONS: #1. Pancytopenia: --Admission CBC with WBC 2.6, hemoglobin 8.4, platelets 123 with increased immature granulocytes--> 04/19/2024 CBC with WBC 5.4, hemoglobin 8.6, platelet 105 with lymphopenia and no significant left shift, improved. --Bloood culture x 2 without growth, chest x-ray unremarkable, afebrile with stable vital signs. #2. 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 --Reinitiated and continued on daily prednisone 40 mg per Nephrology discussions with wean per their discretion with follow-up. --Continue Bactrim double strength prophylactic regimen. #3. Known prior noted Cavitary Apical Lung Mass: --12/2023 CT of her chest which showed apical masses with 1 on the left that was cavitary with high suspicion vasculitic pulmonary related changes w/ CT-guided biopsy unable to be obtained at that admission as patient transferred to [facility] for tertiary facility care prior to Bx. --Current admit Chest x-ray with no overt findings. --Please follow-up with primary care for ongoing evaluation of previously noted mass in the apical lung region as during prior 12/2023 admission had not been able to have the biopsy given transfer to tertiary. Discharge Orders/Prescriptions Prescriptions: New Ensure Compact Liquid 118 ml PO 4X/DAY Qty: 0 0RF menthol-zinc oxide [Calmoseptine] 0.44-20.6 % Ointment 1 applic topical BID Qty: 0 0RF Protocol: *Topical Application Instructions APPLICATION INSTRUCTIONS: BUTTOCKS prednisone 20 mg Tablet 40 mg PO BREAKFAST Qty: 0 0RF sulfamethoxazole-trimethoprim 800-160 mg Tablet 1 tab PO MoWeFr@1700 Qty: 0 0RF Continued cyanocobalamin (vitamin B-12) 1,000 mcg capsule 1,000 mcg PO DAILY cholecalciferol (vitamin D3) 25 mcg (1,000 unit) capsule 25 mcg PO DAILY iron,carbonyl-vitamin C-FOS [Chewable Iron] 1 tab PO DAILY Patient Comments: PT UNAWARE OF STRENGTH ascorbic acid (vitamin C) 250 mg tablet 250 mg PO DAILY carvedilol 6.25 mg tablet 6.25 mg PO BID pantoprazole 40 mg tablet,delayed release (DR/EC) 40 mg PO DAILY Referrals / Follow Up: Jorge Garcia DO [Primary Care Provider] - (Follow-up within 3-5 days to review admission.) Uli Epstein MD [Med Staff - Consulting] - (Continue to follow-up with Nephrology for ongoing HD MWF as previously arranged.) Disposition Disposition (needs filled in before D/C Order can be placed): [facility] Facility
--- NOTE | 2024-04-20 12:57 | DS.PCM_ITS ---
Providers Date of Admission: 04/16/24 Date of Discharge: 04/20/24 Primary Care Physician: Dr. Jorge Garcia, DO Consultations 04/17/24 05:01 Consult: Nephrology Routine Consulting Provider: Uli Epstein Reason for Consult: ESRD on HD. 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 #1. 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 04/20/2024 still awaiting precertification for skilled placement but given timeline would expect potential clearance today. #2. Pancytopenia: Patient with underlying noted anemia which is likely multifactorial however upon presentation WBC and platelets also low, unclear exact etiology, admission CBC with WBC 2.6, hemoglobin 8.4, platelets 123 with increased immature granulocytes--> 04/19/2024 CBC with WBC 5.4, hemoglobin 8.6, MCV one 9.7, platelet 105 with lymphopenia and no significant left shift compared to prior thus leukopenia resolving. Procalcitonin 1.41 however blood cultures with no growth, chest x-ray unremarkable, afebrile with stable vital signs and inability unfortunately to make any urine to obtain urinalysis thus low suspicion for any type of infection. #3. 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 Missed HD the Thursday prior to admission. Nephrology consulted and following. Continue daily prednisone 40 mg which was recently restarted as this had been discontinued outpatient with notable weakness/debility following cessation. Continue Bactrim double strength prophylactic regimen. #4. Cavitary Apical Lung Mass: 12/2023 CT of her chest which showed apical masses with 1 on the left that was cavitary with high suspicion vasculitic pulmonary related changes w/ CT-guided biopsy unable to be obtained at that admission as patient transferred to [facility] for tertiary facility care prior to Bx. Chest x-ray with no overt findings. Upon discharge will encourage follow-up for ongoing evaluation of previously noted mass in the apical lung region. #5. History of GI bleed: 01/04/2024 EGD w/ nonsevere esophagitis with no bleeding, moderate Schatzki's ring which was dilated, small hiatal hernia and segmental moderate inflammation characterized by congestion, erosions, erythema, friability and granularity in the gastric antrum which was biopsied but no signs of acute bleeding, duodenum was normal. Colonoscopy 01/05/2024 with diverticulosis in the rectosigmoid and sigmoid colon along with localized moderate inflammation in the rectosigmoid colon, colon, descending colon that was felt likely secondary to ischemic colitis w/ Bx consistent with localized colitis. #6. Severe protein calorie malnutrition: BMI not severely reduced but patient with significant muscle and fat loss, notable underlying medical history and recent hospitalizations contributing, nutrition consulted and following. #7. History SVT: We will continue patient home Coreg regimen. #8. DVT prophylaxis: Heparin. Medications at Discharge Home Medications ascorbic acid (vitamin C) 250 mg tablet 250 mg PO DAILY 01/02/24 cholecalciferol (vitamin D3) 25 mcg (1,000 unit) capsule 25 mcg PO DAILY 01/02/24 cyanocobalamin (vitamin B-12) 1,000 mcg capsule 1,000 mcg PO DAILY 01/02/24 iron,carbonyl-vitamin C-FOS 1 tab PO DAILY 01/02/24 carvedilol 6.25 mg tablet 6.25 mg PO BID 04/16/24 pantoprazole 40 mg tablet,delayed release 40 mg PO DAILY 04/16/24 food supplemt, lactose-reduced (Ensure Compact oral liquid) 118 ml PO 4X/DAY #0 mL 04/20/24 menthol 0.44 %-zinc oxide 20.6 % topical ointment (Calmoseptine) 1 applic topical BID #0 grams 04/20/24 prednisone 20 mg tablet 40 mg (2 x 20 mg) PO BREAKFAST #0 tabs 04/20/24 sulfamethoxazole 800 mg-trimethoprim 160 mg tablet 1 tab PO MoWeFr@1700 #0 tabs 04/20/24 Medical Records Data Medical Nutrition Assessment Dietitian: Malnutrition Criteria Met Start: 04/17/24 18:19 Freq: Status: Active Protocol: Document 04/17/24 18:19 CARA (Rec: 04/17/24 18:19 CARA [id number]) Nutrition Malnutrition Evidence of Malnutrition Exists Yes Malnutrition (severe): Chronic Evidenced By Suboptimal Energy Intake ( Severe),Weight Loss (Severe), Physical Changes (Moderate), Physical Changes (Severe) Intake Problem Increased Nutrient Needs (specify) Etiology (protein) related to wound healing Signs/Symptoms as evidenced by pressure injury to buttocks. Status Active Problem Clinical Problem Chronic Disease or Condition Related Malnutrition Etiology related to decreased ability to consume sufficient energy to meet estimated nutrient needs Signs/Symptoms as evidenced by significant weight loss noted per EMR wt hx: 5.4% in less than 1 month based upon EMR wt of 129lb as of 04/06/24 and 13.5% in 3 months based upon EMR wt of 141lb as of 01/08/24 as well as oral intakes meeting less than 50% of nutrient needs for greater than 1 month and moderate to severe muscle and fat wasting per NFPA (temples, clavicle, buccal, interosseous). Status Active Problem Recommendation Dietitian Recommendations/Changes Continue with Renal - General diet at this time for ESRD. Will continue with Ensure Compact 4x/day with medpass to help increase oral intakes. Pt refused all other ONS at this time to help increase oral intakes and aid in wound healing. Will continue to follow and modify nutrition interventions as needed/as agreed upon by the pt. Weight / BMI Weight Weight: 130 lb 12.8 oz Body Mass Index (BMI) 21.7 ABG / Lab / Microbiology Data 04/20/24 06:46 04/20/24 06:46 Laboratory: Laboratory Results - last 24 hr 04/20/24 06:46: WBC 8.3, RBC 2.85 L, Hgb 8.6 L, Hct 28.5 L, MCV 100.0 H, MCH 30.2, MCHC 30.2 L, RDW Std Deviation 52.0 H, RDW Coeff of Magdalene 14.3, Plt Count 109 L, MPV 11.0, Neut % (Auto) Not Reportable, Absolute Neuts (auto) 5.5, Absolute Lymphs (auto) 1.10, Total Counted 100, Neutrophils % (Manual) 66, L ymphocytes % (Manual) 13 L, Monocytes % (Manual) 12 H, Metamyelocytes % 4 H, M yelocytes % 5 H, Diff Path Review May foll, Atypical Lymphocytes 1+, Anisocytosis 1+, Sodium 138, Potassium 3.9, Chloride 104, Carbon Dioxide 25.0, Anion Gap 9, BUN 69 H, Creatinine 5.49 H, Estim Creat Clear Calc 7.72, Est GFR (MDRD) Af Amer 10 L, Est GFR (MDRD) Non-Af 8 L, BUN/Creatinine Ratio 12.6, Glucose 79, Calcium 8.2 L, Total Bilirubin 0.50, AST 8 L, ALT < 6 L, Alkaline Phosphatase 55, Total Protein 4.1 L, Albumin 1.8 L, Globulin 2.3, A lbumin/Globulin Ratio 0.8 L Meaningful Use Info Ischemic Stroke Statin Dosing Therapy Reference: STATIN DOSE THERAPY REFERENCE: * Patients > 75 years receive moderate or high dose statin therapy. * Patients 75 years or YOUNGER should receive HIGH intensity statin dose unless contraindicated. You will be required to document reason for non-treatment if statin daily dose does not meet guidelines. HIGH DOSE STATIN THERAPY DAILY Atorvastatin > than or = to 40 mg Rosuvastatin > than or = to 20 mg Amlodipine + Atorvastatin > than or = to 2.5/40 mg Ezetimibe + Simvastatin 10/80 mg Simvastatin 80mg Discharge Plan Admission Admit Date/Time: 04/16/24 22:33 Primary Reason for Your Visit: Adult FTT, Pancytopenia, Hx ANCA-associated vasculitis GRACE->ESRD on HD Attending Provider: María Elena Villa Primary Care Provider: Jorge Garcia Consulting Providers: Danis Acuna; Uli Epstein; Jorge Mcmahan Instructions Additional Instructions / Restrictions: ADDITIONAL DISCHARGE INFORMATION/INSTRUCTIONS: #1. Pancytopenia: --Admission CBC with WBC 2.6, hemoglobin 8.4, platelets 123 with increased immature granulocytes--> 04/19/2024 CBC with WBC 5.4, hemoglobin 8.6, platelet 105 with lymphopenia and no significant left shift, improved. --Bloood culture x 2 without growth, chest x-ray unremarkable, afebrile with stable vital signs. #2. 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 --Reinitiated and continued on daily prednisone 40 mg per Nephrology discussions with wean per their discretion with follow-up. --Continue Bactrim double strength prophylactic regimen. #3. Known prior noted Cavitary Apical Lung Mass: --12/2023 CT of her chest which showed apical masses with 1 on the left that was cavitary with high suspicion vasculitic pulmonary related changes w/ CT-guided biopsy unable to be obtained at that admission as patient transferred to [facility] for tertiary facility care prior to Bx. --Current admit Chest x-ray with no overt findings. --Please follow-up with primary care for ongoing evaluation of previously noted mass in the apical lung region as during prior 12/2023 admission had not been able to have the biopsy given transfer to tertiary. Discharge Orders/Prescriptions Prescriptions: New Ensure Compact Liquid 118 ml PO 4X/DAY Qty: 0 0RF menthol-zinc oxide [Calmoseptine] 0.44-20.6 % Ointment 1 applic topical BID Qty: 0 0RF Protocol: *Topical Application Instructions APPLICATION INSTRUCTIONS: BUTTOCKS prednisone 20 mg Tablet 40 mg PO BREAKFAST Qty: 0 0RF sulfamethoxazole-trimethoprim 800-160 mg Tablet 1 tab PO MoWeFr@1700 Qty: 0 0RF Continued cyanocobalamin (vitamin B-12) 1,000 mcg capsule 1,000 mcg PO DAILY cholecalciferol (vitamin D3) 25 mcg (1,000 unit) capsule 25 mcg PO DAILY iron,carbonyl-vitamin C-FOS [Chewable Iron] 1 tab PO DAILY Patient Comments: PT UNAWARE OF STRENGTH ascorbic acid (vitamin C) 250 mg tablet 250 mg PO DAILY carvedilol 6.25 mg tablet 6.25 mg PO BID pantoprazole 40 mg tablet,delayed release (DR/EC) 40 mg PO DAILY Referrals / Follow Up: Jorge Garcia DO [Primary Care Provider] - (Follow-up within 3-5 days to review admission.) Uli Epstein MD [Med Staff - Consulting] - (Continue to follow-up with Nephrology for ongoing HD MWF as previously arranged.) Disposition Disposition (needs filled in before D/C Order can be placed): [facility]
[2024-04-20 13:16] LABS: Pathologist Review Reviewed
--- NOTE | 2024-04-20 13:33 | PHA.DC.MR.R ---
Pharmacy IN Med Reconciliation Pharmacy Service has performed discharge medication reconciliation for this patient. The patient's discharge medication list was reviewed for discrepancies and discrepancies were resolved. Medications at Discharge Home Medications ascorbic acid (vitamin C) 250 mg tablet 250 mg PO DAILY 01/02/24 cholecalciferol (vitamin D3) 25 mcg (1,000 unit) capsule 25 mcg PO DAILY 01/02/24 cyanocobalamin (vitamin B-12) 1,000 mcg capsule 1,000 mcg PO DAILY 01/02/24 iron,carbonyl-vitamin C-FOS 1 tab PO DAILY 01/02/24 carvedilol 6.25 mg tablet 6.25 mg PO BID 04/16/24 pantoprazole 40 mg tablet,delayed release 40 mg PO DAILY 04/16/24 food supplemt, lactose-reduced (Ensure Compact oral liquid) 118 ml PO 4X/DAY #0 mL 04/20/24 menthol 0.44 %-zinc oxide 20.6 % topical ointment (Calmoseptine) 1 applic topical BID #0 grams 04/20/24 prednisone 20 mg tablet 40 mg (2 x 20 mg) PO BREAKFAST #0 tabs 04/20/24 sulfamethoxazole 800 mg-trimethoprim 160 mg tablet 1 tab PO MoWeFr@1700 #0 tabs 04/20/24
--- NOTE | 2024-04-20 13:50 | CASEMGMT ---
Discharge Planning [facility] has obtained auth to admit. SW updated. Juanita Nguyen DC Planning Asst.
--- NOTE | 2024-04-20 14:02 | CASEMGMT ---
MARIA E JOSE NOTE: Pt being discharged to [facility]. Call placed to Yissel @ [facility] and she was notified. Next OP HD scheduled for Thursday. Eufemia INIGUEZ RN CM
[2024-04-20] MEDS: Carvedilol 6.25 MG Tablet PO (14:23)
[2024-04-20] MEDS: Heparin Injection (Vial) 5,000 UNIT/ML VIAL 5000 UNIT SC (14:24)
[2024-04-20] MEDS: Cyanocobalamin 500 MCG Tablet 1000 MCG PO (14:25)
[2024-04-20] MEDS: Pantoprazole Sodium 40 MG Tablet PO (14:25)
[2024-04-20] MEDS: Ascorbic Acid 500 MG Tablet 250 MG PO (14:25)
[2024-04-20] MEDS: Cholecalciferol (VIT D3) 25 MCG TABLET (1,000 UNITS) PO (14:26)
--- NOTE | 2024-04-20 14:30 | CASEMGMT ---
Social Work Precert has been obtained.? Physician updated and pt is ready for discharge today.? 7000 convalescent form completed in [facility] SW met with pt and they are agreeable to discharge plan as stated above.? DCA and bedside nurse notified of discharge. Disposition:?[facility]?, skilled level of care under convalescent stay. BRODY Greene
--- NOTE | 2024-04-20 14:51 | CASEMGMT ---
Discharge Planning Discharge orders, signed med list, and transport time sent to [facility] via [facility]. Physicians will transport patient by wheelchair at 5p. Nursing, SW, patient, and her updated. Juanita Nguyen DC Planning Asst.
== END 2024-04-20 16:29 ==
LOC: ED 22:19 → MS3 22:53
PROVIDERS: Internal Medicine; Admitting Provider Internal Medicine; Emergency Provider Emergency Medicine; PCP Family Medicine; Visit Provider Family Medicine
DX: R62.7 Adult failure to thrive (principal); D61.818 Other pancytopenia; N18.6 End stage renal disease; I12.0 Hypertensive chronic kidney disease with stage 5 chronic kidney disease or end stage renal disease; I77.82 Antineutrophilic cytoplasmic antibody [ANCA] vasculitis; J44.9 Chronic obstructive pulmonary disease, unspecified; N17.9 Acute kidney failure, unspecified; R53.81 Other malaise; R53.1 Weakness; M19.90 Unspecified osteoarthritis, unspecified site; D63.1 Anemia in chronic kidney disease; E43 Unspecified severe protein-calorie malnutrition; Z99.2 Dependence on renal dialysis; E27.40 Unspecified adrenocortical insufficiency; Z87.891 Personal history of nicotine dependence; K21.9 Gastro-esophageal reflux disease without esophagitis; I49.3 Ventricular premature depolarization; Z68.21 Body mass index [BMI] 21.0-21.9, adult; Z79.899 Other long term (current) drug therapy
CPT/HCPCS: 36415; 71046; 80048; 80053; 82533; 83735; 84100; 84145; 84443; 85025; 87040; 90937; 93005; 94668; 96372; 96374; 96376; 97162; 97166; 97530; 97802; 99221; 99284; J2997; J7030; A4216; G0257; G0378; Q5106

== ENCOUNTER 2024-04-28 07:02 | Day surgery (SDC) | payer MEDICARE, SELFPAY ==
[2024-04-28 07:29] VITALS: BMI 22.6
--- NOTE | 2024-04-28 08:10 | HP.PCM_ITS ---
HPI - General HPI Narrative DIAN WEBB, is a 78 F who presents with malfunction of right IJ dialysis catheter. Has needed CathFlo twice, again having poor flow. This is her first catheter, placed in December. [facility] Medical History End-stage renal disease on hemodialysis ANCA-associated vasculitis Anemia Kidney disease Dialysis patient Former smoker Hyperkalemia Home Medications ?Medication ?Instructions ?Recorded ?Last Taken ?Type ascorbic acid (vitamin C) 250 mg 250 mg PO DAILY 01/02/24 Unknown History tablet cholecalciferol (vitamin D3) 25 25 mcg PO DAILY 01/02/24 Unknown History mcg (1,000 unit) capsule cyanocobalamin (vitamin B-12) 1,000 mcg PO DAILY 01/02/24 Unknown History 1,000 mcg capsule iron,carbonyl-vitamin C-FOS 1 tab PO DAILY 01/02/24 Unknown History carvedilol 6.25 mg tablet 6.25 mg PO BID 04/16/24 Unknown History pantoprazole 40 mg tablet,delayed 40 mg PO DAILY 04/16/24 Unknown History release food supplemt, lactose-reduced 118 ml PO 4X/DAY #0 mL 04/20/24 Unknown Rx (Ensure Compact oral liquid) menthol 0.44 %-zinc oxide 20.6 % 1 applic topical BID #0 grams 04/20/24 Unknown Rx topical ointment (Calmoseptine) prednisone 20 mg tablet 40 mg (2 x 20 mg) PO BREAKFAST #0 04/20/24 Unknown Rx tabs sulfamethoxazole 800 1 tab PO MoWeFr@1700 #0 tabs 04/20/24 Unknown Rx mg-trimethoprim 160 mg tablet Allergy/AdvReac Type Severity Reaction Status Date / Time No Known Allergies Allergy Verified 04/16/24 19:07 Surgical History S/P dialysis catheter insertion Social History Smoking Status: Former smoker ROS Constitutional Constitutional: Denies chills, fever(s), frequent falls, lethargy or weakness Eyes Eyes: Denies blind spots, change in vision or loss of vision ENT HEENT: Denies bleeding gums, hoarseness or sore throat Cardiovascular Cardiovascular: Denies abdominal pain, bluish discoloration of hand/feet, chest pain with activity, claudication, cold extremities, cyanosis, dyspnea on exertion, erythema on extremities, irregular heart rhythm, leg edema, leg ulcers, numbness in extremities or weakness in extremities Respiratory/Chest Respiratory/Chest: Denies cough, excessive phlegm production, shortness of breath at rest, shortness of breath with exertion or wheezing Gastrointestinal Gastrointestinal: Denies anorexia, change in stool character, constipation, diarrhea, melena or rectal bleeding Genitourinary Genitourinary: Denies dysuria or hematuria Musculoskeletal Musculoskeletal: Denies abnormal gait Integumentary Integumentary: Reports other Details: ; Denies erythema, non-healing lesions or wounds Neurologic Neurologic: Denies abnormal speech, focal weakness, headache(s), loss of vision, numbness, paresthesias or sensory deficit Hematologic/Lymphatic Hematologic/Lymphatic: Denies easy bleeding, easy bruising or lymphadenopathy Vital Signs Vital Signs Vital Signs: Weight Weight: 136 lb Body Mass Index (BMI) 22.6 Physical Exam Const alert, oriented x3, no apparent distress and healthy appearing General Appearance: cooperative; Negative for combative or lethargic Orientation / Consciousness: awake Exam Limitations: no limitations HEENT Head and Scalp: normocephalic and atraumatic Eyes EOMs intact bilaterally General Eye: normal appearance of both eyes Neck full ROM, no lymphadenopathy and thyroid normal General: trachea midline; Negative for lymphadenopathy or tenderness Thyroid: thyroid normal Resp normal respiratory effort and no use of accessory muscles Effort and Inspection: Negative for labored, stridor or audible wheezes Cardio regular rate and regular rhythm Back/Spine Cervical Spine: cervical ROM normal Extremity full ROM, normal capillary refill and no clubbing, cyanosis or edema Skin no rashes or lesions noted and no wounds Neuro oriented x3, CN's II-XII intact bilaterally, no focal motor deficits and no sensory deficits noted Psych thought process normal, cooperative, affect normal, speech normal and activity/motor behavior normal Assessment & Plan Assessment/Plan (1) Mechanical complication of tunneled cuffed central venous catheter without port: PLAN: -remove catheter, IVUS to assess for fibrin sheath with angioplasty if indicated, place no catheter
--- NOTE | 2024-04-28 09:30 | PCM.OPRPT ---
Report of Operation Date of Procedure: 04/28/24 Pre-Operative Diagnosis: malfunction tunneled catheter Post-Operative Diagnosis: same Surgery/Procedure Performed:: removal tunneled catheter placement tunneled catheter IVUS IVC, SVC, Innominate vein Angioplasty SVC Surgeon: Bony Mandujano Type of Anesthesia: Local and Sedation,Conscious Estimated Blood Loss (mL): 5 Description of Procedure: HPI: Patient is a 78-year-old female with end-stage renal disease currently on dialysis via right tunneled IJ catheter. She is required lytic infusion on 2 occasions since his placement in December in order to maintain use. She has had increasingly poor flow and presents now for catheter exchange with IVUS to assess for any fibrin sheath or intimal hyperplasia potentially at the vessel adjacent to the port end holes. Description of procedure: Upon obtaining form consent and verification correct patient procedure site [facility] where she was positioned prepped and draped in usual sterile fashion. Timeouts performed conscious sedation administered with Versed and fentanyl. Skin overlying the tunneled catheter was anesthetized 1% lidocaine and a transverse incision made at the apex of the catheter. Blunt dissection used to dissect down to the catheter which was freed circumferentially, clamped on the distal aspect, and divided. A stiff Glidewire was then advanced through the catheter and the catheter exchanged for an 8 Nigerian sheath. Through the 8 Nigerian sheath an intravascular sound probe was advanced and a recorded pullback performed of the inferior vena cava, superior vena cava, innominate vein. This revealed significant fibrin sheath deposit particularly focused at the distal aspect of where the catheter tip had been. It is felt this would benefit from angioplasty so a 10 mm x 40 Atkinson balloon was advanced in position and inflated to nominal for 1 minute then deflated and withdrawn. The 8 Nigerian sheath was then exchanged for the peel-away sheath for catheter insertion. A new skin incision was made in the 19 cm tunneled catheter advanced from the skin incision up to the neck incision. The Glidewire was then withdrawn and the new catheter advanced through the peel-away sheath which was then withdrawn. It was positioned at the atriocaval junction which have been identified using the intravascular ultrasound probe position. Next the neck incision was closed with 4-0 Vicryl and Dermabond. The catheter was secured in position with silk suture. Next blunt dissection was used to dissect free the cuff of the old catheter which was then withdrawn the catheter was then flushed with heparin saline and the caps applied. Dry sterile dressing was applied patient was taken the recovery room with plan discharged to her skilled facility.
== END 2024-04-28 11:05 | disposition home or self-care (01) ==
PROVIDERS: PCP Family Medicine; Referring Provider Surgery Trauma Surgery; Visit Provider Surgery Trauma Surgery
DX: T82.49XA Other complication of vascular dialysis catheter, initial encounter (principal); N18.6 End stage renal disease; Z87.891 Personal history of nicotine dependence; Z99.2 Dependence on renal dialysis
CPT/HCPCS: 36558; 36589; 37248; 37252; 77001; 99152; 99153; C1753; J7040; C1725; C1769; C1894